=== PATIENT | male | born 1950 | race Caucasian/White ===

== ENCOUNTER → 2023-02-03 16:00 | Outpatient (REF) | payer MEDICARE, OTHER, SELFPAY | LOC: WOUND 16:00 | PROVIDERS: ATTENDING PHYSICIAN Surgery; REFERRING PHYSICIAN Family Medicine Sports Medicine | DX: L89.623 Pressure ulcer of left heel, stage 3 (principal); E10.65 Type 1 diabetes mellitus with hyperglycemia; I87.2 Venous insufficiency (chronic) (peripheral); I82.402 Acute embolism and thrombosis of unspecified deep veins of left lower extremity; N41.1 Chronic prostatitis; E10.51 Type 1 diabetes mellitus with diabetic peripheral angiopathy without gangrene | CPT/HCPCS: 11042 ==

== ENCOUNTER → 2023-06-21 14:39 | Outpatient (REF) | payer MEDICARE, OTHER, SELFPAY | LOC: WOUND 14:39 | PROVIDERS: ATTENDING PHYSICIAN Surgery Plastic and Reconstructive Surgery; REFERRING PHYSICIAN Family Medicine Sports Medicine | DX: L89.623 Pressure ulcer of left heel, stage 3 (principal); E10.65 Type 1 diabetes mellitus with hyperglycemia; I73.9 Peripheral vascular disease, unspecified; I87.2 Venous insufficiency (chronic) (peripheral); I82.402 Acute embolism and thrombosis of unspecified deep veins of left lower extremity; N41.1 Chronic prostatitis | CPT/HCPCS: 11042; 99213 ==

== ENCOUNTER → 2023-09-15 13:32 | Outpatient (REF) | payer MEDICARE, OTHER, SELFPAY | LOC: WOUND 13:32 | PROVIDERS: ATTENDING PHYSICIAN Surgery; FAMILY PHYSICIAN Family Medicine Sports Medicine | DX: I73.9 Peripheral vascular disease, unspecified (principal); L89.623 Pressure ulcer of left heel, stage 3; E10.65 Type 1 diabetes mellitus with hyperglycemia; I87.2 Venous insufficiency (chronic) (peripheral); I82.402 Acute embolism and thrombosis of unspecified deep veins of left lower extremity; N41.1 Chronic prostatitis | CPT/HCPCS: 99213 ==

== ENCOUNTER → 2024-01-03 14:45 | Outpatient (REF) | payer MEDICARE, OTHER, SELFPAY | LOC: HWRAD 14:45 | PROVIDERS: ATTENDING PHYSICIAN Family Medicine Sports Medicine | DX: R04.2 Hemoptysis (principal) | CPT/HCPCS: 71046 ==

== ENCOUNTER 2024-07-04 13:17 | Emergency (ER) | payer MEDICARE, OTHER, SELFPAY ==
[2024-07-04] VITALS (19 sets, daily range): BP systolic 120–170; BP diastolic 46–84; BMI 24.5
--- NOTE | 2024-07-04 13:22 | ED.GENMED ---
ED Provider Triage
<Giselle Barbour PA-C - Last Filed: 07/04/24 13:28>
-
Patient seen by provider in Triage?: Seen in Triage
Attestation: A medical screening examination has been initiated by a qualified medical provider. Based on the assessment performed at this time, it has been determined that an emergent medical condition may exist and the patient has been informed
that further medical evaluation and possible additional diagnostic testing may be needed.
HPI: 74yoM here for a low hemoglobin on outpatient labs yesterday. Hx of ESRD, not on dialysis. Receives EPO injections Q10 days. Follows with [facility]. Hemoglobin 5.9 yesterday. C/o generalized weakness. No hematochezia or melena.
GENERAL: Alert , in no apparent distress
EYE: No visual abnormalities.
NECK: Trachea midline
ENT: No visible abnormalities.
LUNGS: No acute respiratory distress
NEUROLOGICAL: Alert and oriented
SKIN: Skin intact. No visible changes.
MUSCULOSKELETAL: Moving extremities normally
PSYCH: Normal and appropriate interaction.
This is a medical evaluation conducted in person to initiate diagnostic evaluation and provide initial therapeutics. Please see further documentation by the treating clinician.
CBC, CMP, type and screen.
History of Present Illness
<Giselle Barbour PA-C - Last Filed: 07/04/24 13:28>
General
Chief Complaint: Abnormal Lab Value
Time Seen by Provider: 07/04/24 13:36
<Edgar Dickens PA-C - Last Filed: 07/04/24 18:53>
History of Present Illness
History of Present Illness:
74-year-old male with history of end-stage renal disease not yet on dialysis presents to the emergency department for evaluation of general fatigue. He states 'I feel lousy'. Had an outpatient lab panel ordered by his nurses medical assistants phlebotomists that noted a
hemoglobin of 5.9. Denies any black or bloody bowel movements. Hemoglobin was as high as 10.1 in March before being 7.8 in May. He was previously on Epogen due to his kidney disease. Denies chest pain or shortness of breath at this time.
Past History
<Giselle Barbour PA-C - Last Filed: 07/04/24 13:28>
Past History
ED Past Medical History: IDDM and Other (Brain lesions, WASHERY ENGINEER shunt, diabetes, UTI, )
ED Past Surgical History: Orthopedic (Tanner knee replacements) and Other (WASHERY ENGINEER shunt)
Social History
Tobacco: Non-smoker
Alcohol: None
Personal:
Living: with family
Review of Systems
<Edgar Dickens PA-C - Last Filed: 07/04/24 18:53>
Review of Systems
Allergies reviewed?: Yes
All Other Systems: ROS reviewed and negative except as documented in HPI and ROS
Phy Exam
<Edgar Dickens PA-C - Last Filed: 07/04/24 18:53>
Physical Exam
Physical Exam:
GEN: Well appearing, NAD, WDWN
HEENT: Oral mucosa moist, no scleral icterus
Cardiac: Regular rate and rhythm
Lung: No respiratory distress, no tachypnea, lungs clear to auscultation bilaterally
MSK: No gross deformity or injuries
Skin: Good color, no pallor or jaundice, no rashes
Neuro: AO x3, moves all extremities freely
Psych: Calm, cooperative
Course
<Giselle Barbour PA-C - Last Filed: 07/04/24 13:28>
Orders/Labs/Results
Orders:
Orders
07/04/24 13:32
Type+Screen Urgent
Complete Blood Count/With Diff Urgent
Comprehensive Metabolic Panel Urgent
07/04/24 14:24
Blood Bank Products [* Blood Bank Products] Urgent
Blood Bank Products: *Packed RBC Leuko(PRBC's)
Quantity: 2
Transfuse Today: Yes
Reason: Anemia
Patient will require pre-treatment for transfusion:: No
Furosemide [Lasix] 20 mg IV ONCE ONE
Abnormal Lab Results
07/04/24
13:32
RBC 2.14 L 10^6/uL
(4.70-6.10)
Hgb 6.3 L* g/dL
(13.0-18.0)
Hct 20.7 L* %
(39.0-52.0)
MCV 96.7 H fL
(80.0-94.0)
MCHC 30.4 L g/dL
(33.0-37.0)
RDW 14.8 H %
(11.5-14.5)
MPV 10.8 H fL
(7.4-10.4)
Absolute Lymphs (auto) 0.8 L 10^3/uL
(1.2-3.4)
Lymphocytes % 16.7 L %
(20.5-51.1)
BUN 112 H* mg/dl
(9-20)
Creatinine 5.9 H* mg/dL
(0.7-1.3)
Glucose 112 H mg/dl
(70-99)
AST 16 L U/L
(17-59)
Alkaline Phosphatase 140 H U/L
(38-126)
Total Protein 6.0 L g/dl
(6.3-8.2)
Crossmatch IS Only See Detail
07/04/24 13:32
07/04/24 13:32
Vital Signs
Initial and Last Documented VS:
Initial Vital Signs
Temp Pulse Resp BP Pulse Ox
97.6 F 79 16 123/49 93
07/04/24 13:19 07/04/24 13:19 07/04/24 13:19 07/04/24 13:19 07/04/24 13:19
Last Documented Vital Signs
Temp Pulse Resp BP Pulse Ox
98.2 F 65 15 139/57 98
07/04/24 18:07 07/04/24 18:10 07/04/24 18:10 07/04/24 18:10 07/04/24 18:10
<Edgar Dickens PA-C - Last Filed: 07/04/24 18:53>
Orders/Labs/Results
Orders:
Orders
07/04/24 13:32
Type+Screen Urgent
Complete Blood Count/With Diff Urgent
Comprehensive Metabolic Panel Urgent
07/04/24 14:24
Blood Bank Products [* Blood Bank Products] Urgent
Blood Bank Products: *Packed RBC Leuko(PRBC's)
Quantity: 2
Transfuse Today: Yes
Reason: Anemia
Patient will require pre-treatment for transfusion:: No
Furosemide [Lasix] 20 mg IV ONCE ONE
Abnormal Lab Results
07/04/24
13:32
RBC 2.14 L 10^6/uL
(4.70-6.10)
Hgb 6.3 L* g/dL
(13.0-18.0)
Hct 20.7 L* %
(39.0-52.0)
MCV 96.7 H fL
(80.0-94.0)
MCHC 30.4 L g/dL
(33.0-37.0)
RDW 14.8 H %
(11.5-14.5)
MPV 10.8 H fL
(7.4-10.4)
Absolute Lymphs (auto) 0.8 L 10^3/uL
(1.2-3.4)
Lymphocytes % 16.7 L %
(20.5-51.1)
BUN 112 H* mg/dl
(9-20)
Creatinine 5.9 H* mg/dL
(0.7-1.3)
Glucose 112 H mg/dl
(70-99)
AST 16 L U/L
(17-59)
Alkaline Phosphatase 140 H U/L
(38-126)
Total Protein 6.0 L g/dl
(6.3-8.2)
Crossmatch IS Only See Detail
07/04/24 13:32
07/04/24 13:32
Vital Signs
Initial and Last Documented VS:
Initial Vital Signs
Temp Pulse Resp BP Pulse Ox
97.6 F 79 16 123/49 93
07/04/24 13:19 07/04/24 13:19 07/04/24 13:19 07/04/24 13:19 07/04/24 13:19
Last Documented Vital Signs
Temp Pulse Resp BP Pulse Ox
98.2 F 65 15 139/57 98
07/04/24 18:07 07/04/24 18:10 07/04/24 18:10 07/04/24 18:10 07/04/24 18:10
<Edgar Dickens PA-C - Last Filed: 07/04/24 18:53>
MDM/Problems Addressed
MDM/Problems Addressed:
Patient's Hemoccult is negative and he appears clinically well. Likely anemia secondary to chronic renal failure. Transfused 2 units of blood in the emergency department tolerated well. Recommend outpatient CBC recheck later this week.
<Edgar Dickens PA-C - Last Filed: 07/04/24 18:53>
*Critical Care Note
Total Time (30-74mins, 75-104mins- exclusive of procedures): Not Applicable
ED Attending Note
<Giselle Barbour PA-C - Last Filed: 07/04/24 13:28>
-
Portions of this chart may have been created with voice recognition software.� Occasional wrong word or��sound alike� substitutions may have occurred due to the inherent limitations of voice recognition software.
Discharge Plan
Departure
Patient Disposition: Home (Routine Discharge)
Date of Disposition: 07/04/24
Time of Disposition: 18:53
Patient with high blood pressure during this ER visit?: No
Discharge Problem:
Anemia due to chronic kidney disease
Instructions: Anemia overview
Prescriptions:
No Action
trazodone 50 mg Tablet
50 mg PO HS
mycophenolate mofetil [CellCept] 500 mg Tablet
500 mg PO BID
tamsulosin 0.4 mg Capsule
0.4 mg PO BID
sodium bicarbonate 650 mg Tablet
1,950 mg PO BID
B complex with C 20-folic acid 1 mg Capsule
1 cap PO DAILY
ezetimibe 10 mg Tablet
10 mg PO DAILY
calcium acetate 667 mg Tablet
1,334 mg PO TID
Retacrit 4,000 unit/mL Solution
8,000 unit SC Q10D
atorvastatin 10 mg Tablet
10 mg PO HS Qty: 30 0RF
finasteride 5 mg Tablet
5 mg PO DAILY Qty: 30 0RF
ascorbic acid (vitamin C) [Vitamin C] 500 mg Tablet
500 mg PO DAILY
oxycodone 5 mg Tablet
5 mg PO BIDPRN PRN (Reason: severe pain)
cholecalciferol (vitamin D3) [Vitamin D3] 25 mcg (1,000 unit) Tablet
25 mcg PO DAILY
Patient Own Insulin Pump
0 unit SC .VIA NOVOLOG
Eliquis 5 mg tablet
2.5 mg PO BID
acetaminophen [Tylenol] 325 mg Tablet
650 mg PO Q6HPRN PRN (Reason: mild pain)
calcium polycarbophil [FiberCon] 625 mg Tablet
625 mg PO QPM
Referrals:
Jay Jaimes, [Family Provider] -
Activity Restrictions/Additional Instructions:
Have your blood counts repeated within the next 2-3 days
Return with any worsening symptoms
Interventions
Interventions:
*Risk Screen - Suicide Last Done: 07/04/24 13:22
*General Assessment Last Done: 07/04/24 14:20
*Neglect/Abuse Screening Last Done: 07/04/24 13:22
ED- Fall Risk Assessment Last Done: 07/04/24 14:20
*ED COVID-19 Vaccine History Last Done: 07/04/24 14:20
Discharge Date and Time
Print Language: LAO
[2024-07-04 14:00] LABS: % Basophils 0.2 % (0-2); % Eosinophils 2.9 % (0-6); % Immature Granulocytes 0.4 % (0-0.5); % Lymphocytes 16.7 % (20.5-51.1); % Monocytes 8.1 % (1.7-9.3); % Neutrophils 71.7 % (42.2-75.2); Absolute Eosinophils 0.1 10^3/uL (0-0.7); Absolute Lymphocytes 0.8 10^3/uL (1.2-3.4); Absolute Monocytes 0.4 10^3/uL (0.1-0.6); Absolute Neutrophils 3.5 10^3/uL (1.4-6.5); Hematocrit 20.7 % (39.0-52.0); Hemoglobin 6.3 g/dL (13.0-18.0); Mean Corp Hgb Conc. 30.4 g/dL (33.0-37.0); Mean Corpuscular Hgb 29.4 pg (27.0-31.0); Mean Corpuscular Volume 96.7 fL (80.0-94.0); Mean Platelet Volume 10.8 fL (7.4-10.4); Nucleated Red Blood Cells % 0 % (-); Platelet Count 180 10^3/uL (130-400); Red Blood Cell Count 2.14 10^6/uL (4.70-6.10); Red Cell Dist. Width 14.8 % (11.5-14.5); White Blood Cell Count 4.9 10^3/uL (4.8-10.8)
[2024-07-04 14:03] LABS: ALT (SGPT) 14 U/L (0-50); AST (SGOT) 16 U/L (17-59); Alkaline Phosphatase 140 U/L (38-126); Blood Urea Nitrogen 112 mg/dl (9-20); Calcium 9.1 mg/dl (8.4-10.2); Carbon Dioxide 22 mmol/L (22-30); Chloride 104 mmol/L (98-107); Glucose 112 mg/dl (70-99); Potassium 4.8 mmol/L (3.5-5.1); Sodium 138 mmol/L (135-145); Total Bilirubin 0.3 mg/dl (0.2-1.3); eGFR 9.39
[2024-07-04] MEDS: LASIX 20 MG IV (15:33)
== END 2024-07-04 21:17 | disposition home or self-care (01) ==
LOC: EMR 13:17
PROVIDERS: Physician Assistant; EMERGENCY PHYSICIAN Emergency Medicine; FAMILY PHYSICIAN Family Medicine Sports Medicine
DX: D63.1 Anemia in chronic kidney disease (principal); N18.6 End stage renal disease
CPT/HCPCS: 99285; 36430; 96374; 80053; 85025; 86850; 86900; 86901; 86920; P9016

== ENCOUNTER 2024-08-23 12:11 | Inpatient (IN) | payer MEDICARE, OTHER, SELFPAY ==
[2024-08-23] VITALS (19 sets, daily range): BP systolic 126–150; BP diastolic 54–80; BMI 25.6; BMI 25.0
--- NOTE | 2024-08-23 10:18 | ED.GENMED ---
History of Present Illness
General
Chief Complaint: Abnormal Lab Value
Source: patient
Exam Limitations: none
Time Seen by Provider: 08/23/24 09:48
History of Present Illness
History of Present Illness:
74-year-old male with anemia of chronic disease and has chronic kidney disease presents with fatigue. This is progressive over the past week or 2. He follows with nephrology at [facility]. He does not use dialysis. He is on Eliquis. He denies any
dark or tarry stools. He recently had a rectal exam was negative for blood. He had outpatient labs yesterday routine basis which showed hemoglobin of 5.5. He was here in June for anemia and was given 2 units of blood and discharged.
Past History
Past History
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
Social History
Tobacco: Non-smoker
Alcohol: None
Personal:
Living: with family
Phy Exam
Physical Exam
Physical Exam:
General: Pale appearing male no acute respiratory
HEENT: Normocephalic atraumatic
Heart: Regular rate and rhythm no murmurs
Lungs: Clear no wheeze
Extremities: No cyanosis
Skin is warm no rash
Course
Orders/Labs/Results
Orders:
Orders
08/23/24 10:11
Type+Screen Urgent
Complete Blood Count/With Diff Urgent
Comprehensive Metabolic Panel Urgent
08/23/24 10:33
0.9% Sodium Chloride 500 ml [Nss] 500 ml IV BOLUS
Pantoprazole [Protonix IV] 80 mg IV NOW STA
08/23/24 10:51
Blood Bank Products [* Blood Bank Products] Urgent
Blood Bank Products: *Packed RBC Leuko(PRBC's)
Quantity: 2
Transfuse Today: Yes
Reason: Anemia
Patient will require pre-treatment for transfusion:: No
Abnormal Lab Results
08/23/24
10:11
RBC 1.74 L 10^6/uL
(4.70-6.10)
Hgb 5.1 L* g/dL
(13.0-18.0)
Hct 17.1 L* %
(39.0-52.0)
MCV 98.3 H fL
(80.0-94.0)
MCHC 29.8 L g/dL
(33.0-37.0)
RDW 16.8 H %
(11.5-14.5)
MPV 11.9 H fL
(7.4-10.4)
Absolute Lymphs (auto) 0.8 L 10^3/uL
(1.2-3.4)
Lymphocytes % 14.6 L %
(20.5-51.1)
Chloride 109 H mmol/L
(98-107)
Carbon Dioxide 18 L mmol/L
(22-30)
BUN 107 H* mg/dl
(9-20)
Creatinine 6.1 H* mg/dL
(0.7-1.3)
Glucose 183 H mg/dl
(70-99)
Alkaline Phosphatase 166 H U/L
(38-126)
Total Protein 5.5 L g/dl
(6.3-8.2)
Crossmatch IS Only See Detail
08/23/24 10:11
08/23/24 10:11
Vital Signs
Initial and Last Documented VS:
Initial Vital Signs
Temp Pulse Resp BP Pulse Ox
98.5 F 77 16 138/56 98
08/23/24 09:44 08/23/24 09:44 08/23/24 09:44 08/23/24 09:44 08/23/24 09:44
Last Documented Vital Signs
Temp Pulse Resp BP Pulse Ox
98.5 F 77 16 138/56 98
08/23/24 09:44 08/23/24 09:44 08/23/24 09:44 08/23/24 09:44 08/23/24 09:44
MDM/Problems Addressed
Differential Diagnosis Includes:
Patient with history of anemia now feels tired but has stable vital signs. He had outpatient labs yesterday that reportedly showed a hemoglobin of 5.5. He is on Eliquis stool is brown but heme positive on rectal exam
Will check labs and plan on transfusing 2 units of blood
*Critical Care Note
Total Time (30-74mins, 75-104mins- exclusive of procedures): Not Applicable
Update Note
Update Note:
Hemoglobin 5.1. Vital signs remained stable. Consent obtained for 2 units of blood.
Discussed with admitting as well as GI. Protonix ordered
ED Attending Note
-
Portions of this chart may have been created with voice recognition software.� Occasional wrong word or��sound alike� substitutions may have occurred due to the inherent limitations of voice recognition software.
Discharge Plan
Departure
Patient Disposition: Admit
Date of Disposition: 08/23/24
Time of Disposition: 11:12
Presentation/result/management discussed w/ accepting MD/DO: Hospitalist
Discharge Problem:
Acute on chronic anemia, Acute GI bleeding
Prescriptions:
No Action
mycophenolate mofetil [CellCept] 500 mg Tablet
500 mg PO BID
tamsulosin 0.4 mg Capsule
0.4 mg PO BID
sodium bicarbonate 650 mg Tablet
1,950 mg PO BID
B complex with C 20-folic acid 1 mg Capsule
1 cap PO DAILY
ezetimibe 10 mg Tablet
10 mg PO DAILY
calcium acetate 667 mg Tablet
1,334 mg PO TID
atorvastatin 10 mg Tablet
10 mg PO HS Qty: 30 0RF
finasteride 5 mg Tablet
5 mg PO DAILY Qty: 30 0RF
ascorbic acid (vitamin C) [Vitamin C] 500 mg Tablet
500 mg PO DAILY
oxycodone 5 mg Tablet
5 mg PO DAILY
cholecalciferol (vitamin D3) [Vitamin D3] 25 mcg (1,000 unit) Tablet
25 mcg PO DAILY
Patient Own Insulin Pump
0 unit SC .VIA NOVOLOG
calcium polycarbophil [FiberCon] 625 mg Tablet
625 mg PO QPM
acetaminophen 500 mg Tablet
1,000 mg PO DAILYPRN PRN (Reason: mild pain)
apixaban 2.5 mg Tablet
2.5 mg PO BID
ciprofloxacin HCl 500 mg Tablet
500 mg PO BID
Patient Comments:
started 08/20/24. take for 10 days
Visbiome 112.5 billion cell Capsule
1 cap PO HS
Referrals:
Jay Jaimes DO [Family Provider] -
Interventions
Interventions:
*Risk Screen - Suicide Last Done: 08/23/24 09:44
*General Assessment Last Done: 08/23/24 10:08
*Neglect/Abuse Screening Last Done: 08/23/24 09:44
ED- Fall Risk Assessment Last Done: 08/23/24 10:10
*ED COVID-19 Vaccine History Last Done: 08/23/24 10:08
Discharge Date and Time
Print Language: SLOVAK
[2024-08-23 10:25] LABS: % Basophils 0.2 % (0-2); % Eosinophils 4.3 % (0-6); % Immature Granulocytes 0.4 % (0-0.5); % Lymphocytes 14.6 % (20.5-51.1); % Neutrophils 73.5 % (42.2-75.2); Absolute Eosinophils 0.2 10^3/uL (0-0.7); Absolute Lymphocytes 0.8 10^3/uL (1.2-3.4); Absolute Monocytes 0.4 10^3/uL (0.1-0.6); Absolute Neutrophils 3.8 10^3/uL (1.4-6.5); Hematocrit 17.1 % (39.0-52.0); Hemoglobin 5.1 g/dL (13.0-18.0); Mean Corp Hgb Conc. 29.8 g/dL (33.0-37.0); Mean Corpuscular Hgb 29.3 pg (27.0-31.0); Mean Corpuscular Volume 98.3 fL (80.0-94.0); Mean Platelet Volume 11.9 fL (7.4-10.4); Nucleated Red Blood Cells % 0 % (-); Platelet Count 157 10^3/uL (130-400); Red Blood Cell Count 1.74 10^6/uL (4.70-6.10); Red Cell Dist. Width 16.8 % (11.5-14.5); White Blood Cell Count 5.2 10^3/uL (4.8-10.8)
[2024-08-23 10:42] LABS: ALT (SGPT) 19 U/L (0-50); AST (SGOT) 17 U/L (17-59); Albumin 3.5 g/dl (3.5-5.0); Alkaline Phosphatase 166 U/L (38-126); Blood Urea Nitrogen 107 mg/dl (9-20); Calcium 8.8 mg/dl (8.4-10.2); Carbon Dioxide 18 mmol/L (22-30); Chloride 109 mmol/L (98-107); Estimated Creatinine Clearance 12 ml/min; Glucose 183 mg/dl (70-99); Potassium 4.7 mmol/L (3.5-5.1); Sodium 139 mmol/L (135-145); Total Bilirubin 0.4 mg/dl (0.2-1.3); Total Protein 5.5 g/dl (6.3-8.2); eGFR 9.02
--- NOTE | 2024-08-23 11:11 | CON.GI ---
Addendum entered and electronically signed by Thang Jacinto MD 08/23/24 14:12:
Patient seen and examined, agree with nurse practitioner note. Patient is a 74-year-old male with complex medical history as noted who presents with anemia. His hemoglobin was 5.9 down from 7 in June. He has had history of chronic anemia,
with iron studies not consistent with iron deficiency. He had negative EGD and colonoscopy at the emergency [place] around 2 years ago by report. He was found to be heme positive though brown stools and has had not had any GI symptoms. He
did have norovirus a couple weeks ago, the did not have any gross bleeding and now denies any abdominal pain, nausea, vomiting, fever, chills, melena or hematochezia. He has chronic known anemia of chronic disease on frequent Epogen. On exam he
has no abdominal tenderness.
1. Anemia: Not from GI blood loss, without iron deficiency or gross bleeding. His heme positive stool is very nonspecific and likely clinically nonsignificant without again gross bleeding, without iron deficiency, and macrocytosis. The majority
of his anemia is likely anemia of chronic disease, though other marrow disorder such as myelodysplastic syndrome is not excluded. At this point would hold on any GI evaluation unless signs of gross bleeding. Will advance diet, he is for
transfusion will defer to internal medicine, consider hematology consult at some point.
We will sign off for now, please call back with any further questions.
Original Note:
Consultation
-
Date/Time Consultation Requested: 08/23/24 1100
Date/Time Consultation Performed: 08/23/24 1115
Requesting Provider: Benedicto Lance PA-C
Performing Provider: RELL Major, Keyshawn Jacinto MD
Reason for Consultation: anemia
Medical History
Chief Complaint / HPI
Chief Complaint: anemia
History of Present Illness:
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
ER. In review of labs from [facility] pt with hbg down to 5.9 then 7 range since June with iron studies not consistent with iron deficiency. Pt admits to progressive shortness of breath but denies odynophagia, dysphagia, GERD, nausea, vomiting,
abdominal pain, diarrhea, constipation, blood or black in stools. Pt last EGD/colon at [facility] about 2 years ago. Family did not recall any major finding. No NSAID use. Pt is on chronic Epogen.
Past Medical History
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
Past Surgical History: Orthopedic (TKR ) and Other (SECRETARY ADMINISTRATIVE ASSISTANT shunt )
Social History
Tobacco: Non-Smoker
Alcohol: None
Drug: None
Personal:
Living: With Family
Employment: Retired
Family History
Family History: Other (father with colon CA in 80's)
Allergies / Home Medications
Allergy/AdvReac Type Severity Reaction Status Date / Time
No Known Allergies Allergy Verified 08/23/24 09:46
�Medication �Instructions �Recorded
calcium acetate 667 mg tablet 1,334 mg PO TID Kidney Disease 12/12/22
ezetimibe 10 mg tablet 10 mg PO DAILY High Cholesterol 12/12/22
mycophenolate mofetil 500 mg 500 mg PO BID Neurologic Sarcoid 12/12/22
tablet (CellCept) Granulomatosis
sodium bicarbonate 650 mg tablet 1,950 mg PO BID Electrolyte 12/12/22
Repletion
tamsulosin 0.4 mg capsule 0.4 mg PO BID Urinary Issue 12/12/22
vitamin B complex and vitamin C 1 cap PO DAILY Supplement 12/12/22
no.20-folic acid 1 mg capsule
atorvastatin 10 mg tablet 10 mg PO HS #30 tabs 12/15/22
finasteride 5 mg tablet 5 mg PO DAILY #30 tabs 12/15/22
Patient Own Insulin Pump 0 unit SC .VIA [employer] 07/04/24
ascorbic acid (vitamin C) 500 mg 500 mg PO DAILY 07/04/24
tablet (Vitamin C)
calcium polycarbophil 625 mg 625 mg PO QPM 07/04/24
tablet (FiberCon)
cholecalciferol (vitamin D3) 25 25 mcg PO DAILY 07/04/24
mcg (1,000 unit) tablet (Vitamin
D3)
oxycodone 5 mg tablet 5 mg PO DAILY 07/04/24
Lactobac no.2-Bifidobac no.1-S. 1 cap PO HS 08/23/24
thermo 112.5 billion cell capsule
(Visbiome)
acetaminophen 500 mg tablet 1,000 mg PO DAILYPRN PRN mild pain 08/23/24
apixaban 2.5 mg tablet 2.5 mg PO BID 08/23/24
ciprofloxacin HCl 500 mg tablet 500 mg PO BID 08/23/24
Review of Systems
-
History Source: Patient and Family
Constitutional: Reports No Symptoms
EENT: Reports No Symptoms
Respiratory: Reports Trouble Breathing
Cardiac: Reports No Symptoms
Abdomen/GI: Reports No Symptoms
: Reports No Symptoms
Musculoskeletal: Reports No Symptoms
Skin: Reports No Symptoms
Neurological: Reports No Symptoms
Endocrine: Reports No Symptoms
Hematologic/Lymphatic: Reports Bleeding
Vital Signs
Temp Pulse Resp BP Pulse Ox
98.5 F 77 16 138/56 98
08/23/24 09:44 08/23/24 09:44 08/23/24 09:44 08/23/24 09:44 08/23/24 09:44
Physical Exam
Exam
General: Well Developed, Well Nourished and No Apparent Distress
HEENT: Normocephalic and Anicteric
Respiratory: Clear
Cardiac: Regular Rhythm
GI: Soft, Non Tender and Non Distended
Rectal: Other (heme + brown in ER)
Musculoskeletal: No Clubbing, No Cyanosis and Edema
Skin: Warm and Dry
Neuro: Awake, Alert and AO x 3
Psych: Calm
Results
WBC 5.2 10^3/uL (4.8-10.8) 08/23/24 10:11
Hgb 5.1 g/dL (13.0-18.0) L* 08/23/24 10:11
Hct 17.1 % (39.0-52.0) L* 08/23/24 10:11
MCV 98.3 fL (80.0-94.0) H 08/23/24 10:11
Plt Count 157 10^3/uL (130-400) 08/23/24 10:11
Absolute Neuts (auto) 3.8 10^3/uL (1.4-6.5) 08/23/24 10:11
Sodium 139 mmol/L (135-145) 08/23/24 10:11
Potassium 4.7 mmol/L (3.5-5.1) 08/23/24 10:11
Chloride 109 mmol/L (98-107) H 08/23/24 10:11
Carbon Dioxide 18 mmol/L (22-30) L 08/23/24 10:11
BUN 107 mg/dl (9-20) H* 08/23/24 10:11
Creatinine 6.1 mg/dL (0.7-1.3) H* 08/23/24 10:11
Calcium 8.8 mg/dl (8.4-10.2) 08/23/24 10:11
Total Bilirubin 0.4 mg/dl (0.2-1.3) 08/23/24 10:11
AST 17 U/L (17-59) 08/23/24 10:11
ALT 19 U/L (0-50) 08/23/24 10:11
Alkaline Phosphatase 166 U/L (38-126) H 08/23/24 10:11
Diagnostic Image Results:
Prior GI Procedures:
EGD: last at [facility] about 2 years ago
Colonoscopy: last at [facility] about 2 years ago
Assessment / Plan
-
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
In review of labs from [facility] pt with hbg down to 5.9 then 7 range since June with iron studies not consistent with iron deficiency. Pt admits to progressive shortness of breath but denies odynophagia, dysphagia, GERD, nausea, vomiting, abdominal
pain, diarrhea, constipation, blood or black in stools. Pt last EGD/colon at [facility] about 2 years ago. Family did not recall any major finding. No NSAID use. Pt is on chronic Epogen.
-macrocytic anemia with prior iron studies not c/w iron deficiency
-chronic anemia with hbg down to 5.9 in June
-heme + brown stool in ER
-CKD with worsening dysfunction due for eventual start of HD
-DVT on Eliquis prior to admission
-hx brain lesion on cellcept
-recent UTI on abx
other med problems:
-IDDM
-SECRETARY ADMINISTRATIVE ASSISTANT shunt
-TKR
PLAN:
etiology of anemia likely related to advancing kidney disease, GI bleeding with brown heme + stool on exam vs other
no recent bleeding episodes and hbg down to 5.9 in June
agree with transfusion
trend hbg
obtain repeat iron studies, B12, folate
Eliquis hold last dose 08/22
discussed EGD/colon with family vs continued observation as no signs of aggressive GI bleeding and likely underlying kidney issues leading to anemia
obtain prior EGD/colon from [facility] 2 years ago
ok for clear diet for now until review with dr. Jacinto for definitive plan
OP follow up with [facility]-- did review with nephrology who is scheduling follow up and also recommending OP hematology -
-
-
Thank you for consultation and allowing me to participate in the patient's care. Please call the telephone solicitor GI physician during the after hours with any questions or concerns.
[2024-08-23] MEDS: PROTONIX IV 80 MG IV (11:12)
[2024-08-23] MEDS: NSS 500 IV (11:13)
--- NOTE | 2024-08-23 12:04 | HPS.HSE ---
Family Physician
-
Family Physician: Jay Jaimes
Chief Complaint
-
weakness
History of Present Illness
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
Patient reported feeling fatigued more then usual over past 3 weeks. FOBT positive as per ED message. No overt blood in stool and no black stool seen as per patient. Ordered 2 units of PRBC by ED
Medical History
Past Medical History
Past Medical History: Reports Other
Additional Past Medical History:
See HPI
Past Surgical History: Reports Other
Additional Past Surgical History:
See HPI
Social History
Tobacco: Non-smoker
Alcohol: None
Personal:
Family History
Family History: Not pertinent
Allergies / Home Medications
Allergies reflects when Allergies were last updated in [facility].
Home Medications with original date entered in [facility]
Allergy/Medication List:
Allergies
Allergy/AdvReac Type Severity Reaction Status Date / Time
No Known Allergies Allergy Verified 08/23/24 09:46
Home Medications
calcium acetate 667 mg tablet 1,334 mg PO TID Kidney Disease 12/12/22
ezetimibe 10 mg tablet 10 mg PO DAILY High Cholesterol 12/12/22
mycophenolate mofetil 500 mg tablet (CellCept) 500 mg PO BID Neurologic Sarcoid Granulomatosis 12/12/22
sodium bicarbonate 650 mg tablet 1,950 mg PO BID Electrolyte Repletion 12/12/22
tamsulosin 0.4 mg capsule 0.4 mg PO BID Urinary Issue 12/12/22
vitamin B complex and vitamin C no.20-folic acid 1 mg capsule 1 cap PO DAILY Supplement 12/12/22
atorvastatin 10 mg tablet 10 mg PO HS #30 tabs 12/15/22
finasteride 5 mg tablet 5 mg PO DAILY #30 tabs 12/15/22
Patient Own Insulin Pump 0 unit SC .VIA NOVOLOG 07/04/24
ascorbic acid (vitamin C) 500 mg tablet (Vitamin C) 500 mg PO DAILY 07/04/24
calcium polycarbophil 625 mg tablet (FiberCon) 625 mg PO QPM 07/04/24
cholecalciferol (vitamin D3) 25 mcg (1,000 unit) tablet (Vitamin D3) 25 mcg PO DAILY 07/04/24
oxycodone 5 mg tablet 5 mg PO DAILY 07/04/24
Lactobac no.2-Bifidobac no.1-S. thermo 112.5 billion cell capsule (Visbiome) 1 cap PO HS 08/23/24
acetaminophen 500 mg tablet 1,000 mg PO DAILYPRN PRN mild pain 08/23/24
apixaban 2.5 mg tablet 2.5 mg PO BID 08/23/24
ciprofloxacin HCl 500 mg tablet 500 mg PO BID 08/23/24
Review of Systems
-
History Source: Patient
A 12 point ROS was completed and negative except as noted: Yes
Constitutional: Reports Fatigue
Physical Exam
Vital Signs
Vital Signs
Temp Pulse Resp BP Pulse Ox
97.5 F 70 20 139/74 99
08/23/24 11:43 08/23/24 11:43 08/23/24 11:43 08/23/24 11:43 08/23/24 11:43
Physical Exam
General: Well Developed, Well Nourished and No Apparent Distress
HEENT: NormoCephalic, Anicteric and Moist mucous membranes
Respiratory: Clear; No Wheezes, Rales or Rhonchi
Cardiac: S1/S2 and Regular Rhythm; No Murmur
GI: Soft, Non Tender and Non Distended
Musculoskeletal: No Clubbing, No Cyanosis and No Edema
Skin: Warm and Other (pale); No Dry or Jaundice
Neuro: Awake, Alert, Oriented and AO x 3
Psych: Calm
Laboratory Results
-
08/23/24 10:11
08/23/24 10:11
Laboratory Results
Total Bilirubin 0.4 mg/dl (0.2-1.3) 08/23/24 10:11
AST 17 U/L (17-59) 08/23/24 10:11
ALT 19 U/L (0-50) 08/23/24 10:11
Alkaline Phosphatase 166 U/L (38-126) H 08/23/24 10:11
Data Reviewed
-
Lab Data: Labs Reviewed by me
Impression/Plan
-
A/P:
#Acute symptomatic anemia, multifactorial on anemia of chronic disease
#CKD stage 5 with metabolic acidosis
2/2 Cellcept, advanced CKD, GIB
Serial Hgb and transfuse to keep Hgb >7
PPI drip
GI consult
CLD
Hold antiplatelets and anticoagulation
Anemia workup
Nephrology consult
Start Bicarb oral
#DM type 2 with nephropathy
Patient owns insulin pump - cont
Insulin SS, Accuchekcs, DM diet
#Hx of DVT
hold Eliquis
LE US
#Neurosarcoidosis
#Chronic prostatitis
#BPH
#HLD
COnt home meds
DVT ppx SCDs
DNR/DNI - agreed with patient and bedside
I have spent at least 79min reviewing chart, test results, communication with consultants, family and direct patient care
[2024-08-23 12:15] LABS: Iron 193 ug/dl (49-181)
[2024-08-23 12:26] LABS: Percent Saturation 95 % (20-50); Total Iron Binding Capacity 203 ug/dl (261-462)
[2024-08-23 13:21] LABS: Folate > 20.0 ng/ml (2.76-20); Vitamin B12 828 pg/ml (239-931)
[2024-08-23] MEDS: PROTONIX 100 IV (13:21)
--- NOTE | 2024-08-23 13:43 | W.CON.NEPH ---
Consultation
-
Date/Time Consultation Requested: 08/23/24 1120
Date/Time Consultation Performed: 08/23/24 1400
Requesting Provider: Xiang Silverman
Performing Provider: Norma Workman
Reason for Consultation: CKD5
Medical History
-
Chief Complaint: Weakness
History of Present Illness:
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
For 64 years, has microvascular complications neuropathy, nephropathy , HLD, BPH on Flomax, chronic prostatitis, Hx of DVT UE and LE on Eliquis, recurrent severe anemia on high dose outpatient Epo came after outpatient labs showed severe anemia,
found Hgb 5.1. Patient reported feeling fatigued more then usual over past 3 weeks. FOBT positive as per ED message. No overt blood in stool and no black stool seen as per patient. he is on ciprofloxacin for recent UTI. he wears external catheter
for urinary frequency, self catheter once a day with known history of retention as result of diabetes.
Creatinine noted to be at 6.1, bicarbonate of 18, BUN of 107-nephrology consulted to review.
He offers no chest pain or nausea or vomiting. No lower extremity edema. he is recommended to see hematology by his workforce consultant for persistent anemia despite on LEN. he also plan to start dialysis once access is established, scheduled to see
vascular and of the month for a graft. He cannot be on PD due to PATIENT SERVICES SPECIALIST shunt.
Past Medical History
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
PATIENT SERVICES SPECIALIST shunt,
CKD stage 5 last cr 5.9,
chronic metabolic acidosis
hyperphosphatemia o
IDDM
HLD,
BPH
chronic prostatitis
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
anemia
Failed left upper extremity fistula
Past Surgical History: Other (VPshunt and TKR)
Social History
Tobacco: Non-Smoker
Alcohol: None
Drug: None
Personal:
Living: With Family
Employment: Retired
Family History
father with colon cancer in 80s
Family History: Not Pertinent
Allergies / Home Medications
Allergy/AdvReac Type Severity Reaction Status Date / Time
No Known Allergies Allergy Verified 08/23/24 09:46
�Medication �Instructions �Recorded �Confirmed �Type
calcium acetate 667 mg tablet 1,334 mg PO TID Kidney Disease 12/12/22 08/23/24 History
ezetimibe 10 mg tablet 10 mg PO DAILY High Cholesterol 12/12/22 08/23/24 History
mycophenolate mofetil 500 mg 500 mg PO BID Neurologic Sarcoid 12/12/22 08/23/24 History
tablet (CellCept) Granulomatosis
sodium bicarbonate 650 mg tablet 1,950 mg PO BID Electrolyte 12/12/22 08/23/24 History
Repletion
tamsulosin 0.4 mg capsule 0.4 mg PO BID Urinary Issue 12/12/22 08/23/24 History
vitamin B complex and vitamin C 1 cap PO DAILY Supplement 12/12/22 08/23/24 History
no.20-folic acid 1 mg capsule
atorvastatin 10 mg tablet 10 mg PO HS #30 tabs 12/15/22 08/23/24 Rx
finasteride 5 mg tablet 5 mg PO DAILY #30 tabs 12/15/22 08/23/24 Rx
Patient Own Insulin Pump 0 unit SC .VIA NOVOLOG 07/04/24 08/23/24 History
ascorbic acid (vitamin C) 500 mg 500 mg PO DAILY 07/04/24 08/23/24 History
tablet (Vitamin C)
calcium polycarbophil 625 mg 625 mg PO QPM 07/04/24 08/23/24 History
tablet (FiberCon)
cholecalciferol (vitamin D3) 25 25 mcg PO DAILY 07/04/24 08/23/24 History
mcg (1,000 unit) tablet (Vitamin
D3)
oxycodone 5 mg tablet 5 mg PO DAILY 07/04/24 08/23/24 History
Lactobac no.2-Bifidobac no.1-S. 1 cap PO HS 08/23/24 08/23/24 History
thermo 112.5 billion cell capsule
(Visbiome)
acetaminophen 500 mg tablet 1,000 mg PO DAILYPRN PRN mild pain 08/23/24 08/23/24 History
apixaban 2.5 mg tablet 2.5 mg PO BID 08/23/24 08/23/24 History
ciprofloxacin HCl 500 mg tablet 500 mg PO BID 08/23/24 08/23/24 History
Review of Systems
-
All complete 12 point ROS inquired and found negative other than stated in HPI
Physical Exam
Vital Signs
Vital Signs
Temp Pulse Resp BP Pulse Ox
97.7 F 64 18 144/71 99
08/23/24 13:24 08/23/24 13:24 08/23/24 13:24 08/23/24 13:24 08/23/24 13:24
Lab Results
WBC 5.2 10^3/uL (4.8-10.8) 08/23/24 10:11
RBC 1.74 10^6/uL (4.70-6.10) L 08/23/24 10:11
Hgb 5.1 g/dL (13.0-18.0) L* 08/23/24 10:11
Hct 17.1 % (39.0-52.0) L* 08/23/24 10:11
Plt Count 157 10^3/uL (130-400) 08/23/24 10:11
Sodium 139 mmol/L (135-145) 08/23/24 10:11
Potassium 4.7 mmol/L (3.5-5.1) 08/23/24 10:11
Chloride 109 mmol/L (98-107) H 08/23/24 10:11
Carbon Dioxide 18 mmol/L (22-30) L 08/23/24 10:11
BUN 107 mg/dl (9-20) H* 08/23/24 10:11
Creatinine 6.1 mg/dL (0.7-1.3) H* 08/23/24 10:11
eGFR 9.02 08/23/24 10:11
Glucose 183 mg/dl (70-99) H 08/23/24 10:11
Calcium 8.8 mg/dl (8.4-10.2) 08/23/24 10:11
Albumin 3.5 g/dl (3.5-5.0) 08/23/24 10:11
Physical Exam
General: Awake, Alert, Oriented, AOx3, No Distress and Nontoxic
HEENT: EOMI, Anicteric, Conjunctivae Clear, Facial Symmetry and No JVD
Respiratory: Clear, Normal Excursion and Nonlabored Respirations
Cardiac: S1/S2 and Regular Rate/Rhythm
Breast: Deferred by me
Abdomen: Soft, Nontender and Nondistended
Musculoskeletal: No Cyanosis and No Edema
Skin: No Rash
Neuro: Nonfocal/Grossly Intact
Psych: Mood/afflect pleasant, Insight/judgement good and Appropriate
Data Reviewed
-
Labs: Labs Reviewed by me, Discussed with Patient and Discussed with Family
Assessment/Plan
-
IMP:
Acute symptomatic anemia
anemia of chronic disease
CKD stage 5 last cr 5.9, In process of getting dialysis access-nephrology at [place]
chronic metabolic acidosis
hyperphosphatemia
IDDM 1 with nephropathy
HLD,
BPH
chronic prostatitis
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
PATIENT SERVICES SPECIALIST shunt,
Plan:
A/w weakness, symp anemia
CKD-stage5, no emergent need of HD
likely will need soon, which patient is already awake and planning to have graft placement in the near future
He is interested in getting nocturnal dialysis, wants to set up at [place] [facility]
He cannot get PD with PATIENT SERVICES SPECIALIST shunt
monitor UOP , Check PVR with known history of mild retention
cont high dose of po bicarb therapy
follow h/h post transfusion, GI follows
He was also recommended to see hematology as outpatient by his workforce consultant
BP stable
avoid nephrotoxins
discussed in detail with the patient and at bedside
Discussed with the nursing
[2024-08-23 14:16] LABS: COVID-19 Antigen Negative (Negative)
--- NOTE | 2024-08-23 15:35 | W.PN.UPDATE ---
Update Note
Progress Note Update
GI signed off - no endoscopy planed, not concerned for overt bleeding - will cont eliquis
Hematology cosnult as per GI
[2024-08-23] MEDS: HEPARIN 25000 UNITS/250 ML IV ×2 (17:52→18:36)
[2024-08-23 18:15] LABS: APTT 34.2 Sec (23.4-35.0)
[2024-08-23] MEDS: CELLCEPT 500 MG PO (20:16)
[2024-08-23] MEDS: SODIUM BICARBONATE 1950 MG PO (20:18)
[2024-08-23] MEDS: FLOMAX 0.4 MG PO (20:19)
[2024-08-23] MEDS: VISBIOME 1 CAP PO (20:19)
[2024-08-23] MEDS: LIPITOR 10 MG PO (20:21)
[2024-08-23 20:24] LABS: Hematocrit 22.4 % (39.0-52.0); Hemoglobin 6.9 g/dL (13.0-18.0); Reticulocyte Count 1.4 % (0.4-2.8)
[2024-08-23 20:25] LABS: Iron 186 ug/dl (49-181); LDH 132 U/L (120-246)
[2024-08-23 20:35] LABS: Percent Saturation 94 % (20-50); Total Iron Binding Capacity 197 ug/dl (261-462)
[2024-08-23 21:36] LABS: Glucose - Point of Care 129 mg/dl (70-99)
[2024-08-23 21:44] LABS: Folate > 20.0 ng/ml (2.76-20); Vitamin B12 799 pg/ml (239-931)
[2024-08-23] MEDS: PT'S OWN INSULIN PUMP - NovoLOG 2 UNIT SC (22:09)
[2024-08-23] MEDS: PHOSLO 1334 MG PO (22:11)
[2024-08-24 01:14] LABS: APTT 102.9 Sec (23.4-35.0)
[2024-08-24 01:42] VITALS: BP 134/55
[2024-08-24] MEDS: ROXICODONE 5 MG PO (04:34)
[2024-08-24 05:30] LABS: Hematocrit 22.8 % (39.0-52.0); Hemoglobin 7.5 g/dL (13.0-18.0)
[2024-08-24 05:47] LABS: APTT 138.3 Sec (23.4-35.0)
[2024-08-24 06:03] LABS: Blood Urea Nitrogen 98 mg/dl (9-20); Calcium 8.8 mg/dl (8.4-10.2); Carbon Dioxide 15 mmol/L (22-30); Chloride 113 mmol/L (98-107); Estimated Creatinine Clearance 13 ml/min; Glucose 149 mg/dl (70-99); Magnesium 1.7 mg/dl (1.6-2.3); Potassium 4.7 mmol/L (3.5-5.1); Sodium 139 mmol/L (135-145); eGFR 9.78
[2024-08-24 07:00] VITALS: BP 134/67
[2024-08-24] MEDS: PT'S OWN INSULIN PUMP - NovoLOG 1 UNIT SC (08:53)
[2024-08-24 08:58] LABS: Glucose - Point of Care 181 mg/dl (70-99)
[2024-08-24] MEDS: CELLCEPT 500 MG PO (08:58)
[2024-08-24] MEDS: CIPRO 500 MG PO (08:59)
[2024-08-24] MEDS: PROTONIX 40 MG PO (08:59)
[2024-08-24] MEDS: SODIUM BICARBONATE 1950 MG PO (08:59)
[2024-08-24] MEDS: VITAMIN D3 (cholecalciferol) 25 MCG PO (08:59)
[2024-08-24] MEDS: FLOMAX 0.4 MG PO (08:59)
[2024-08-24] MEDS: PROSCAR 5 MG PO (09:00)
[2024-08-24] MEDS: ZETIA 10 MG PO (09:00)
--- NOTE | 2024-08-24 10:24 | W.PN.HOSP.TC ---
Today's Communication/Plan
-
repeat H&H at noon - if stable -will d/c
Assessment / Plan
Assessment / Plan
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
Hgb 5.1. Patient reported feeling fatigued more then usual over past 3 weeks. FOBT positive as per ED message. No overt blood in stool and no black stool seen as per patient. Ordered 2 units of PRBC by ED, feeling better afterwards. As per GI - no
indication for EGD/colonoscopy as anemia most likely multifacorial. Established hematology appt in [facility] on 08/27/24. US LE showed chronic vs recent DVT. Since vendor does not recommend dose reduction for treatment of VTE - start ELiquis 10mg BID for
7 days then 5mg BID and patient was recommended to have that discussed with the thread weaver. No more over bleeding and H&H stable.
A/P:
#Acute symptomatic anemia, multifactorial on anemia of chronic disease
#CKD stage 5 with metabolic acidosis
2/2 Cellcept, advanced CKD, GIB
Serial Hgb and transfuse to keep Hgb >7
GI signed off - no endoscopy planed, not concerned for overt bleeding - will cont eliquis
Hematology cosnult as per GI - already established appt in [facility] for 08/27/24
Anemia workup
Nephrology consult
Start Bicarb oral
#DM type 2 with nephropathy
Patient owns insulin pump - cont
Insulin SS, Accuchekcs, DM diet
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
Patient was on reduced dose ELiquis, will not consider it a failure
Increase to vendor-recommended dose
#Neurosarcoidosis
#Chronic prostatitis
#BPH
#HLD
COnt home meds
DVT ppx SCDs
DNR/DNI - agreed with patient and bedside
I have spent at least 39min reviewing chart, test results, communication with consultants, family and direct patient care
Anticipated Discharge: Within 24 hours
Subjective/Interval History
-
Date of Service: August 24, 2024
Objective Data
-
Labs:
Laboratory Results
08/24/24 08/24/24 08/24/24
00:48 05:22 12:00
Hgb 7.5 L Pending
Hct 22.8 L Pending
APTT 102.9 H 138.3 H
Sodium 139
Potassium 4.7
Chloride 113 H
Carbon Dioxide 15 L
BUN 98 H
Creatinine 5.7 H*
Glucose 149 H
Calcium 8.8
08/24/24 08/24/24
13:00 20:00
Hgb Pending
Hct Pending
APTT Pending
Sodium
Potassium
Chloride
Carbon Dioxide
BUN
Creatinine
Glucose
Calcium
Vital Signs:
Vital Signs
Temp Pulse Resp BP Pulse Ox
98.0 F 79 18 134/67 97
08/24/24 07:00 08/24/24 07:00 08/24/24 07:00 08/24/24 07:00 08/24/24 07:00
I&O
08/23/24 08/24/24 08/25/24
06:59 06:59 06:59
Intake Total 1710 / 1710
Output Total 2700 / 2700
Balance -990 / -990
Review of Systems
-
History Source: Patient
All other systems: Reviewed and negative
Physical Exam
-
General: No Apparent Distress
HEENT: Normocephalic
Cardiac: Regular Rhythm
GI: Soft, Nontender and Nondistended
Skin: Warm
Neuro: Awake, Alert, Oriented and AO x 3
Psych: Calm
--- NOTE | 2024-08-24 10:54 | W.PN.NEPH.PH ---
Today's Communication / Plan
-
observe
maintain sodium bicarbonate
Cleared for discharge from nephrology standpoint
Assessment/Plan
-
IMP:
Acute symptomatic anemia
anemia of chronic disease
CKD stage 5 last cr 5.9, In process of getting dialysis access-nephrology at [place]
chronic metabolic acidosis
hyperphosphatemia
IDDM 1 with nephropathy
HLD,
BPH
chronic prostatitis
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
HYPERION DEVELOPER shunt,
Plan:
A/w weakness, symp anemia : hemoglobin at 7.5
Creatinine at 5.7 BUN 98 metabolic acidosis persist
CKD-stage5, no emergent need of HD
likely will need soon, which patient is already awake and planning to have graft placement in the near future
He is interested in getting nocturnal dialysis, wants to set up at [facility]
He cannot get PD with HYPERION DEVELOPER shunt
monitor UOP , Check PVR with known history of mild retention
continue high dose of po bicarb therapy, not responding as well with CO2 of 15
follow h/h post transfusion, GI follows
He was also recommended to see hematology as outpatient by his oven tender
BP stable off any antihypertensives
avoid nephrotoxins
Maintain phosphate binders for hyperphosphatemia with meals
-
-
Date of Service: August 24, 2024
CC / HPI / ROS
-
Chief Complaint:
CKD stage V
History of Present Illness:
Anemia persist hemoglobin 7.5
Hemodynamically stable
Creatinine at 5.7 BUN 98
Review of Systems:
Grossly nonoliguric
No chest pain or shortness of
Labs
-
Labs:
WBC 5.2 10^3/uL (4.8-10.8) 08/23/24 10:11
RBC 1.74 10^6/uL (4.70-6.10) L 08/23/24 10:11
Plt Count 157 10^3/uL (130-400) 08/23/24 10:11
Sodium 139 mmol/L (135-145) 08/24/24 05:22
Potassium 4.7 mmol/L (3.5-5.1) 08/24/24 05:22
Chloride 113 mmol/L (98-107) H 08/24/24 05:22
Carbon Dioxide 15 mmol/L (22-30) L 08/24/24 05:22
BUN 98 mg/dl (9-20) H 08/24/24 05:22
Creatinine 5.7 mg/dL (0.7-1.3) H* 08/24/24 05:22
eGFR 9.78 08/24/24 05:22
Glucose 149 mg/dl (70-99) H 08/24/24 05:22
Calcium 8.8 mg/dl (8.4-10.2) 08/24/24 05:22
Albumin 3.5 g/dl (3.5-5.0) 08/23/24 10:11
Physical Exam
-
Vital Signs:
Vital Signs
Temp Pulse Resp BP Pulse Ox
98.0 F 79 18 134/67 96
08/24/24 07:00 08/24/24 07:00 08/24/24 07:00 08/24/24 07:00 08/24/24 08:40
Cardiovascular:: Regular rate and rhythm
Respiratory:: Bilateral: CTA
Lung Excursion:: Normal
Abdomen:: Nontender and Soft
Bowel Sounds:: Normal
Extremity Edema:: +1: Bilateral:
Herrera Catheter: No
Other Findings::
dose straight cath
[2024-08-24] MEDS: PHOSLO 1334 MG PO (11:18)
[2024-08-24 11:34] LABS: Glycohemoglobin (HgbA1c) 5.7 % (4.0-5.6)
[2024-08-24 12:11] LABS: Hematocrit 27.2 % (39.0-52.0); Hemoglobin 8.4 g/dL (13.0-18.0)
--- NOTE | 2024-08-24 12:19 | W.DCSUMMARY ---
Discharge Summary
Discharge Data
Date of Admission: 08/23/24
Date of Discharge: 08/24/24
-
Pending Results: No
Hospital Course
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
5.1. Patient reported feeling fatigued more then usual over past 3 weeks. FOBT positive as per ED message. No overt blood in stool and no black stool seen as per patient. Ordered 2 units of PRBC by ED, feeling better afterwards. As per GI - no
indication for EGD/colonoscopy as anemia most likely multifacorial. Established hematology appt in [facility] on 08/27/24. US LE showed chronic vs recent DVT. Since vendor does not recommend dose reduction for treatment of VTE - start ELiquis 10mg BID for
7 days then 5mg BID and patient was recommended to have that discussed with the pricing lead. No more over bleeding and H&H stable.
I have spent at least 39min reviewing chart, test results, communication with consultants, family and direct patient care
Patient was managed for:
#Acute symptomatic anemia, multifactorial on anemia of chronic disease
#CKD stage 5 with metabolic acidosis
#DM type 2 with nephropathy
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
#Neurosarcoidosis
#Chronic prostatitis
#BPH
#HLD
Discharge Plan
-
Patient Disposition: Home (Routine Discharge)
Discharge Diagnosis/Procedures: Anemia
Diet: Regular
Driving Restrictions: As prior to admission
Referrals:
Jay Jaimes DO [Family Provider] -
Prescriptions:
New
pantoprazole 40 mg Tablet,Delayed Release (Dr/Ec)
40 mg PO DAILY Qty: 30 0RF
Eliquis DVT-PE Treat 30D Start 5 mg (74 tabs) tablets,dose pack
See Rx Instructions .ROUTE .COMPLEX Qty: 74 0RF
Rx Instructions:
10mg BID for 7 days, then 5mg BID
Continued
mycophenolate mofetil [CellCept] 500 mg Tablet
500 mg PO BID
tamsulosin 0.4 mg Capsule
0.4 mg PO BID
sodium bicarbonate 650 mg Tablet
1,950 mg PO BID
B complex with C 20-folic acid 1 mg Capsule
1 cap PO DAILY
ezetimibe 10 mg Tablet
10 mg PO DAILY
calcium acetate 667 mg Tablet
1,334 mg PO TID
atorvastatin 10 mg Tablet
10 mg PO HS Qty: 30 0RF
finasteride 5 mg Tablet
5 mg PO DAILY Qty: 30 0RF
ascorbic acid (vitamin C) [Vitamin C] 500 mg Tablet
500 mg PO DAILY
oxycodone 5 mg Tablet
5 mg PO DAILY
cholecalciferol (vitamin D3) [Vitamin D3] 25 mcg (1,000 unit) Tablet
25 mcg PO DAILY
Patient Own Insulin Pump
0 unit SC .VIA NOVOLOG
calcium polycarbophil [FiberCon] 625 mg Tablet
625 mg PO QPM
acetaminophen 500 mg Tablet
1,000 mg PO DAILYPRN PRN (Reason: mild pain)
apixaban 2.5 mg Tablet
2.5 mg PO BID
ciprofloxacin HCl 500 mg Tablet
500 mg PO BID
Patient Comments:
started 08/20/24. take for 10 days
Visbiome 112.5 billion cell Capsule
1 cap PO HS
Discharge Orders:
Discharge Patient (As Directed); Ordered 08/24/24
Ordered By: Xiang Layton
Discharge Date and Time
Print Language: COLOMBIAN
[2024-08-24 12:46] LABS: APTT > 200.0 Sec (23.4-35.0)
[2024-08-24 13:49] VITALS: BP 137/62
--- NOTE | 2024-08-24 14:06 | CM ---
CM spoke with Nj and his to complete IA. Nj lives with his in a 3 story home with 5 entry steps; 8 steps to the 2nd floor where there is a full bathroom. Pt does not drive.
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
Plan: Discharge home with spouse; will resume outpatient therapy at [facility].
PCP: Jay Jaimes
Pharmacy: [facility] in [place]
--- NOTE | 2024-08-24 16:36 | PN.DE ---
Diabetes Education
- -
08/24/2024: Consulted for insulin pump management.
74 year old male with PMH: Chronic DVT, Neurosarcoidosis, Chronic prostatitis, BPH, HLD and T1DM x 55 years and has been using an insulin pump for over 25 yrs. He routinely follows up with his [facility] [address] [facility] at [place]. A1C Pending, Cr
6.1
He is currently using the Tandem T-Slim with NovoLog insulin and has a [employer] G6 glucose monitor. His glucose is stable and in range. FBG 149 this AM.
Pump settings are as follows:
Basal ICR ICF Target
12am 0.1 1:20 1:90 110
3am 0.4 1:20 1:90 110
6am 0.6 1:20 1:90 110
10am 0.6 1:20 1:90 110
7pm 0.6 1:20 1:90 110
24 hour basal total 12.3 units
Active insulin 3 hours
Will make no changes to current pump settings. Discussed with Hospitalist and Nurse.
Will cont to follow him while he remains in the hospital
== END 2024-08-24 17:54 | disposition home or self-care (01) | DRG 683 ==
LOC: 4 EAST ACU 12:11
PROVIDERS: Physician Assistant; ADMITTING PHYSICIAN Internal Medicine; CONSULT PHYSICIAN Internal Medicine; CONSULT PHYSICIAN Internal Medicine Gastroenterology; EMERGENCY PHYSICIAN Emergency Medicine; FAMILY PHYSICIAN Family Medicine Sports Medicine
PROC: 30233N1 Transfusion of Nonautologous Red Blood Cells into Peripheral Vein, Percutaneous Approach (ICD-10-PCS; 2024-08-23)
DX: N18.5 Chronic kidney disease, stage 5 (principal); E87.22 Chronic metabolic acidosis; K92.2 Gastrointestinal hemorrhage, unspecified; I82.511 Chronic embolism and thrombosis of right femoral vein; I82.531 Chronic embolism and thrombosis of right popliteal vein; I82.551 Chronic embolism and thrombosis of right peroneal vein; I82.532 Chronic embolism and thrombosis of left popliteal vein; R79.89 Other specified abnormal findings of blood chemistry; D63.1 Anemia in chronic kidney disease; E10.40 Type 1 diabetes mellitus with diabetic neuropathy, unspecified; E78.00 Pure hypercholesterolemia, unspecified; N40.0 Benign prostatic hyperplasia without lower urinary tract symptoms; N41.1 Chronic prostatitis; E10.22 Type 1 diabetes mellitus with diabetic chronic kidney disease; D86.89 Sarcoidosis of other sites; G93.9 Disorder of brain, unspecified; E83.39 Other disorders of phosphorus metabolism; Z66 Do not resuscitate; Z96.653 Presence of artificial knee joint, bilateral; Z98.2 Presence of cerebrospinal fluid drainage device; Z87.440 Personal history of urinary (tract) infections; Z79.01 Long term (current) use of anticoagulants; Z11.52 Encounter for screening for COVID-19; Z80.0 Family history of malignant neoplasm of digestive organs; Z79.624 Long term (current) use of inhibitors of nucleotide synthesis; Z79.4 Long term (current) use of insulin
CPT/HCPCS: 36430; 80048; 80053; 82607; 82728; 82746; 82962; 83036; 83540; 83550; 83615; 83735; 85014; 85018; 85025; 85045; 85730; 86850; 86900; 86901; 86920; 87502; 87811; 93970; 96374; 96375; 99285; P9016

== ENCOUNTER 2024-11-27 12:23 | Emergency (ER) | payer MEDICARE, OTHER, SELFPAY ==
[2024-11-27 12:32] VITALS: BP 175/78
[2024-11-27 13:06] LABS: % Basophils 0.5 % (0-2); % Eosinophils 2.9 % (0-6); % Immature Granulocytes 0.3 % (0-0.5); % Lymphocytes 13.1 % (20.5-51.1); % Monocytes 9.4 % (1.7-9.3); % Neutrophils 73.8 % (42.2-75.2); Absolute Eosinophils 0.2 10^3/uL (0-0.7); Absolute Lymphocytes 0.8 10^3/uL (1.2-3.4); Absolute Monocytes 0.6 10^3/uL (0.1-0.6); Absolute Neutrophils 4.6 10^3/uL (1.4-6.5); Hematocrit 36.2 % (39.0-52.0); Hemoglobin 10.5 g/dL (13.0-18.0); Mean Corpuscular Hgb 29.4 pg (27.0-31.0); Mean Corpuscular Volume 101.4 fL (80.0-94.0); Mean Platelet Volume 11.1 fL (7.4-10.4); Nucleated Red Blood Cells % 0 % (-); Platelet Count 222 10^3/uL (130-400); Red Blood Cell Count 3.57 10^6/uL (4.70-6.10); Red Cell Dist. Width 16.6 % (11.5-14.5); White Blood Cell Count 6.2 10^3/uL (4.8-10.8)
[2024-11-27 13:26] LABS: ALT (SGPT) < 10 U/L (0-50); AST (SGOT) 15 U/L (17-59); Alkaline Phosphatase 119 U/L (38-126); Blood Urea Nitrogen 109 mg/dl (9-20); Calcium 9.1 mg/dl (8.4-10.2); Carbon Dioxide 18 mmol/L (22-30); Chloride 114 mmol/L (98-107); Glucose 109 mg/dl (70-99); Potassium 5.4 mmol/L (3.5-5.1); Sodium 142 mmol/L (135-145); Total Bilirubin 0.5 mg/dl (0.2-1.3); eGFR 9.39
--- NOTE | 2024-11-27 14:48 | ED.GENMED ---
History of Present Illness
General
Chief Complaint: Overdose Unintentional
Source: patient and spouse
Exam Limitations: none
Time Seen by Provider: 11/27/24 14:41
Nursing documentation reviewed up to this point in time: agreed with
History of Present Illness
History of Present Illness:
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 He poured the wrong bottle of pills
into his hand and took them. He states about an hour later felt nauseous and had dry heaves but since, he feels 'fine.'
Past History
Past History
ED Past Medical History: HTN, Hypercholesterolemia, IDDM, Renal failure, Other (Brain lesions, MANAGER CARDIAC shunt, diabetes, UTI, ) and Other (BPH, DVT on Eliquis, MANAGER CARDIAC shunt)
ED Past Surgical History: Orthopedic (Tanner knee replacements) and Other (MANAGER CARDIAC shunt)
Social History
Tobacco: Non-smoker
Alcohol: None
Personal:
Living: with family
Employment: Retired
Review of Systems
Review of Systems
Allergies reviewed?: Yes
All Other Systems: ROS reviewed and negative except as documented in HPI and ROS
Constitutional: Denies fever
Respiratory: Denies trouble breathing
Cardiac: Denies chest pain
ABD/GI: Reports nausea; Denies abdominal pain, vomiting or diarrhea
: Reports other (ESRD, not yet on dialysis. He is on Cipro for a UTI )
Musculoskeletal: Reports no symptoms
Skin: Reports no symptoms
Neurological: Reports no symptoms
Phy Exam
Physical Exam
Physical Exam:
GENERAL: No acute distress. A&Ox3.
CONSTITUTIONAL: Afebrile.
EYES: clear, conjunctivae normal
ENMT: moist mucus membranes, Pharynx nl
RESPIRATORY: Regular respirations, nonlabored, lungs clear.
CARDIOVASCULAR: Regular rate and rhythm, no murmurs, no rubs.
GI: Soft, nontender, normal BS
MUSCULOSKELETAL: Moves with ease. Well perfused.
SKIN: Warm, dry, pink
PSYCH: Normal mood and affect. Well kept, interactive and appropriate
NEUROLOGIC: Awake, alert and oriented. No focal neurological deficits
Course
Orders/Labs/Results
Orders:
Orders
11/27/24 12:39
Electrocardiogram (*1) Urgent
Reason for Study: QTc Monitoring
11/27/24 12:40
EKG- Treatment ONCE
11/27/24 12:48
Complete Blood Count/With Diff Urgent
Comprehensive Metabolic Panel Urgent
Abnormal Lab Results
11/27/24
12:48
RBC 3.57 L 10^6/uL
(4.70-6.10)
Hgb 10.5 L g/dL
(13.0-18.0)
Hct 36.2 L %
(39.0-52.0)
MCV 101.4 H fL
(80.0-94.0)
MCHC 29.0 L g/dL
(33.0-37.0)
RDW 16.6 H %
(11.5-14.5)
MPV 11.1 H fL
(7.4-10.4)
Absolute Lymphs (auto) 0.8 L 10^3/uL
(1.2-3.4)
Lymphocytes % 13.1 L %
(20.5-51.1)
Monocytes % 9.4 H %
(1.7-9.3)
Potassium 5.4 H mmol/L
(3.5-5.1)
Chloride 114 H mmol/L
(98-107)
Carbon Dioxide 18 L mmol/L
(22-30)
BUN 109 H* mg/dl
(9-20)
Creatinine 5.9 H* mg/dL
(0.7-1.3)
Glucose 109 H mg/dl
(70-99)
AST 15 L U/L
(17-59)
Total Protein 6.0 L g/dl
(6.3-8.2)
11/27/24 12:48
11/27/24 12:48
Vital Signs
Initial and Last Documented VS:
Initial Vital Signs
Temp Pulse Resp Pulse Ox
97.7 F 62 18 97
11/27/24 12:30 11/27/24 12:30 11/27/24 12:30 11/27/24 12:30
Last Documented Vital Signs
Temp Pulse Resp BP Pulse Ox
97.7 F 62 18 175/78 97
11/27/24 12:30 11/27/24 12:30 11/27/24 12:30 11/27/24 12:32 11/27/24 14:41
Foreign Language Teacher consulted with Physician
Foreign Language Teacher consulted with physician?: Yes
Name of Physician Consulted: Adolfo
MDM/Problems Addressed
Differential Diagnosis Includes:
medication SE: QT prolongation, tendon rupture, n/v
MDM/Problems Addressed:
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 He poured the wrong bottle of pills
into his hand and took them. He states about an hour later felt nauseous and had dry heaves but since, he feels 'fine.'
CBC, CMP consistent with his baseline.
Asymptomatic
EKG NSR
Spoke with [facility]: With Dr. Umana who mentions risk of tendon rupture, QTc prolongation, change in mental state, none of which have occurred so he says there is not really anything more to do.
Patient's has notified his rubber press tender Dr. Zuleta who recommended he come here
Patient's PCP Dr. Jaimes has not called them back yet but she will notify him tomorrow as he was the prescribing doctor.
*EKG
EKG Intrepretation Date: 11/27/24
Interpretation: normal
Heart Rate: 63
Rate: normal
Rhythm: sinus
Purdys: normal axis
Interval: normal interval
QRS Pattern: normal QRS
Ischemia: no ischemia
*Critical Care Note
Total Time (30-74mins, 75-104mins- exclusive of procedures): Not Applicable
ED Attending Note
-
Portions of this chart may have been created with voice recognition software.� Occasional wrong word or��sound alike� substitutions may have occurred due to the inherent limitations of voice recognition software.
Discharge Plan
Departure
Patient Disposition: Home (Routine Discharge)
Date of Disposition: 11/27/24
Time of Disposition: 15:26
Patient with high blood pressure during this ER visit?: No
Condition: Good
Discharge Problem:
Accidental medication overdose
Prescriptions:
No Action
mycophenolate mofetil [CellCept] 500 mg Tablet
500 mg PO BID
tamsulosin 0.4 mg Capsule
0.4 mg PO BID
sodium bicarbonate 650 mg Tablet
1,950 mg PO BID
B complex with C 20-folic acid 1 mg Capsule
1 cap PO DAILY
ezetimibe 10 mg Tablet
10 mg PO DAILY
calcium acetate 667 mg Tablet
1,334 mg PO TID
atorvastatin 10 mg Tablet
10 mg PO HS Qty: 30 0RF
finasteride 5 mg Tablet
5 mg PO DAILY Qty: 30 0RF
ascorbic acid (vitamin C) [Vitamin C] 500 mg Tablet
500 mg PO DAILY
oxycodone 5 mg Tablet
5 mg PO DAILY
cholecalciferol (vitamin D3) [Vitamin D3] 25 mcg (1,000 unit) Tablet
25 mcg PO DAILY
Patient Own Insulin Pump
0 unit SC .VIA NOVOLOG
calcium polycarbophil [FiberCon] 625 mg Tablet
625 mg PO QPM
acetaminophen 500 mg Tablet
1,000 mg PO DAILYPRN PRN (Reason: mild pain)
ciprofloxacin HCl 500 mg Tablet
500 mg PO BID
Patient Comments:
started 08/20/24. take for 10 days
Visbiome 112.5 billion cell Capsule
1 cap PO HS
pantoprazole 40 mg Tablet,Delayed Release (Dr/Ec)
40 mg PO DAILY Qty: 30 0RF
Eliquis DVT-PE Treat 30D Start 5 mg (74 tabs) tablets,dose pack
See Rx Instructions .ROUTE .COMPLEX Qty: 74 0RF
Rx Instructions:
10mg BID for 7 days, then 5mg BID
Referrals:
Jay Jaimes DO [Family Provider] -
Activity Restrictions/Additional Instructions:
As we discussed, Cipro can cause tendon ruptures so for the next few days moves slowly, try not to strain your Achilles tendon.
Consider yourself finished with your Cipro prescription
Your kidney function is at its baseline, your EKG is normal
Notify your PCP of today's visit since he is the one that prescribed the medication.
Interventions
Interventions:
*Risk Screen - Suicide Last Done: 11/27/24 14:41
*General Assessment Last Done: 11/27/24 14:41
*Neglect/Abuse Screening Last Done: 11/27/24 14:41
*ED COVID-19 Vaccine History Last Done: 11/27/24 14:45
*Nursing Disposition Last Done: 11/27/24 15:29
ED- Pulmonary Assessment Last Done: 11/27/24 14:41
ED-Psychological Assessment Last Done: 11/27/24 14:41
ED- Neurological Assessment Last Done: 11/27/24 14:41
ED- Cardiac Assessment Last Done: 11/27/24 14:41
Discharge Date and Time
Discharge Date/Time: 11/27/24 15:33
Print Language: MALTESE
== END 2024-11-27 15:33 | disposition home or self-care (01) ==
LOC: EMR 12:23
PROVIDERS: Student in an Organized Health Care Education/Training Program; EMERGENCY PHYSICIAN Student in an Organized Health Care Education/Training Program; FAMILY PHYSICIAN Family Medicine Sports Medicine
DX: T36.8X1A Poisoning by other systemic antibiotics, accidental (unintentional), initial encounter (principal); R11.0 Nausea; E11.22 Type 2 diabetes mellitus with diabetic chronic kidney disease; I12.0 Hypertensive chronic kidney disease with stage 5 chronic kidney disease or end stage renal disease; N18.6 End stage renal disease; E78.00 Pure hypercholesterolemia, unspecified; Z86.718 Personal history of other venous thrombosis and embolism; Z79.01 Long term (current) use of anticoagulants; Z98.2 Presence of cerebrospinal fluid drainage device
CPT/HCPCS: 99284; 80053; 85025; 93005

== ENCOUNTER → 2025-05-14 12:29 | Outpatient (REF) | payer MEDICARE, OTHER, SELFPAY | LOC: WOUND 12:29 | PROVIDERS: ATTENDING PHYSICIAN Surgery; FAMILY PHYSICIAN Family Medicine Sports Medicine | DX: L89.620 Pressure ulcer of left heel, unstageable (principal); L84 Corns and callosities | CPT/HCPCS: 99213 ==

== ENCOUNTER 2025-06-06 19:43 | Inpatient (IN) | payer MEDICARE, OTHER, SELFPAY ==
[2025-06-06] VITALS (10 sets, daily range): BP systolic 119–161; BP diastolic 56–88; BMI 28.2
--- NOTE | 2025-06-06 16:49 | ED.GENMED ---
History of Present Illness
<Derek Alexandra PA-C - Last Filed: 06/06/25 23:52>
General
Chief Complaint: Breathing Problem
Source: patient and spouse
Time Seen by Provider: 06/06/25 16:38
History of Present Illness
History of Present Illness:
75-year-old male with past medical history of neurosarcoidosis, chronic kidney disease (due to start dialysis next month), insulin-dependent diabetes, previous DVT (currently maintained on Eliquis 2-1/2 mg twice daily with reported good compliance)
presenting to the ER at the request of his primary doctor for evaluation of progressive shortness of breath and exertional dyspnea over the last few weeks accompanied with a cough that he previously been with minor sputum production but now
intermittently blood-tinged and with bilateral lower extremity edema. Patient follows with most of his long-term care physicians at the [facility]. He denies any fevers or infectious symptoms. No pleurisy, chest pain,
palpitations, diaphoresis, abdominal pain, nausea or vomiting. No recent travel or known sick contacts. Social history was negative for cigarettes or tobacco products
Past History
<Derek Alexandra PA-C - Last Filed: 06/06/25 23:52>
Past History
ED Past Medical History: HTN, Hypercholesterolemia, IDDM, Renal failure, Other (Brain lesions, D[employer] shunt, diabetes, UTI, ) and Other (BPH, DVT on Eliquis, D[employer]EL [employer] shunt)
ED Past Surgical History: Orthopedic (Tanner knee replacements) and Other (DIESEL MECH[employer]STRU[employer] shunt)
Social History
Tobacco: Non-smoker
Alcohol: None
Drug: None
Personal:
Living: with family
Employment: Retired
Review of Systems
<Derek Alexandra PA-C - Last Filed: 06/06/25 23:52>
Review of Systems
All Other Systems: ROS reviewed and negative except as documented in HPI and ROS
Phy Exam
<Derek Alexandra PA-C - Last Filed: 06/06/25 23:52>
Physical Exam
Physical Exam:
GENERAL: Alert , in no apparent distress
HEAD: Normocephalic atraumatic
EYE: clear conjunctiva
NECK: Supple
ENT: o/p clr, mmm.
CARDIAC: Regular rate and rhythm .
LUNGS: 88% RA, 94% 2L NC. Rales base bilateral, no respiratory distress. speaking full sentences. no obvious dyspnea or accessory muslce use
ABDOMEN: Soft, without focal tenderness, no r/g, no cvat
NEUROLOGICAL: Alert and oriented
SKIN: Warm and dry, skin intact.
MUSCULOSKELETAL: 1+ edema to the ankles bilaterally, well perfused.
PSYCH: Normal and appropriate interaction.
Scores
<Derek Alexandra PA-C - Last Filed: 06/06/25 23:52>
Heart Failure Risk
Heart Failure Risk Score: Yes
History of Stroke or TIA: No
History of intubation for respiratory distress: No
Heart rate on ED arrival >/= 110: No
SaO2 <90% on arrival on room air: Yes
HR >/=110 during 3min walk test (or too ill to perform test): Yes
ECG has acute ischemic changes: No
Urea >/=12mmol/L (BUN 33.6mg/dL): Yes
Serum CO2>/=35mmol/L: No
Troponin I or T elevated to [place] Level (0.4mg/dL): No
NT-proBNP >/=5,000ng/L (5,000pg/ml): Yes
HF Risk Score: 5
Admission Status: VERY HIGH RISK 39.8% Consider admission to hospital
Heart Score for Chest Pain Patients
STEMI patient?: Not applicable
Withdrawal Assessment of Alcohol
Withdrawal Assessment Completed?: Not applicable
Course
<Derek Alexandra PA-C - Last Filed: 06/06/25 23:52>
Orders/Labs/Results
Orders:
Orders
06/06/25 Dinner
2000 calorie (17 carb) Diabetic
Fluid Restriction: 1440 mL/day (48 oz)
Diabetic Diet: Potassium, 2 Gram
Sodium, 2 Gram
06/06/25 16:07
EKG [Electrocardiogram (*1)] Urgent
Reason for Study: Shortness of Breath
EKG- Treatment ONCE
06/06/25 16:45
CR Chest - 2 Views Urgent
Comment:
Reason For Exam: SOB, cough, intermittent hemoptysis
Venous Doppler Lwr Ext Bilat [US Periph Venous LOWER Ext Tanner] Urgent
Comment:
Reason For Exam: hx dvt, edema
06/06/25 16:48
Complete Blood Count/With Diff Urgent
Comprehensive Metabolic Panel Urgent
NT-proBNP Urgent
PTT Urgent
Prothrombin Time Urgent
Troponin I Urgent
06/06/25 17:12
COVID-19 Antigen Urgent
Source: Nasal Swab
Influenza A+B Rapid Molecular Urgent
SETH Source: Nasal Swab
Specimen Description:
06/06/25 17:29
Furosemide [Lasix] 20 mg IV NOW STA
06/06/25 18:29
Heparin 7,300 units IV NOW STA
Nursing to Place Non Medication Order As Directed
Physician Order: PTT 6 hours after initial start of Heparin infusion
06/06/25 18:30
Heparin [id number] Units/250 ml 25,000 units in 250 ml IV PER PROTOCOL
Weight to be used for heparin protocol in kilograms (kg):: 91.6
Protocol:: DVT/PE
PTT Goal Range to be used:: PTT 73 to 111 seconds
Order type:: Initial
INITIAL Infusion Dose (UNITS/KG/hr) & then follow protocol:: 18 units/kg/hr
Infusion Dose in UNITS/hr & then follow protocol (UNITS/hr):: 1,600
INFUSION RATE in mL/hr & then follow protocol (mL/hr):: 16
For DVT/PE algorithm, re-bolus for low PTT?: Yes
PTT less than or equal to 64 seconds:: Re-bolus 80 units/kg (max 10,000units). Increase by 400 units/hr
(+ 4mL/hr)
PTT 64.1 to 72.9 seconds:: Re-bolus 40 units/kg (max 5,000 units). Increase by 200 units/hr
(+ 2mL/hr)
PTT 73 to 111 seconds:: Target Range. No change in rate.
PTT 111.1 to 130.9 seconds:: Decrease rate by 200 units/hr (- 2 mL/hr)
PTT 131 to 199.9 seconds:: HOLD for 1 hr. Then decrease by 300 units/hr (- 3mL/hr)
PTT greater than or equal to 200 seconds:: HOLD for 2 hrs & Notify Provider. Then decrease by 400 units/hr
(- 4mL/hr)
Lab follow-up:: Each change, PTT q6h until 2 consecutive are therapeutic. Then
PTT daily.
06/06/25 18:36
Heparin 3,700 units IV PRN PRN
Heparin 7,300 units IV PRN PRN
06/06/25 18:45
Furosemide [Lasix] 80 mg IV NOW STA
06/06/25 18:46
Consult Interventional Radiology [IRAD CONSULT] Routine
Consulting Provider: Joe Zimmerman
Was physician already notified: Yes
Procedure being ordered, including laterality if applicable: tunneled dialysis catheter
Acknowledgement that appropriate orders are entered: Yes
06/06/25 18:59
Hemodialysis treatment As Directed
Treatment date:: 06/07/25
Treatment type: Hemodialysis
Ultrafiltration (kg): 1.5
Treatment time (duration): 2 hours 15 minutes
Use dialysis access:: Tunneled Cath
Dialyzer:: Optiflux 160
Blood flow rate minimum: 200
Blood flow rate maximum: 250
Dialysis flow rate: Other
Dialysis flow rate other:: 400
Dialysate temperature: 36 degrees Celsius
Sodium (Na): 140
Potassium (K): 2
Calcium (Ca): 2.5
Bicarbonate (HCO3): 35
06/06/25 19:20
Admit/Transfer Patient As Directed
Co-Sign Provider:
Level of Care: Inpatient admission
Assign to:: Telemetry
Physician / Group: Beto
Diagnosis: ESRD on HD, DVT +/- PE
Reason for Telemetry: Arrhythmia
Date to Stop Telemetry: 06/09/25
Time to Stop Telemetry: 11:00
Reason for Hospitalization: ESRD on HD, DVT +/- PE
Expected length of stay greater than two midnights?: Yes
ELOS- Estimated Length of Stay in days: 4
I certify the patient meets the requirements for IP care: Yes
PRN Pain Medication Management As Directed
May give lesser potent ordered pain med per pt: Yes
preference::
Protocol:: Medication orders for pain may be administered in a
manner that supports deferring to patient preference
when the pt is:
- Requesting an ordered lesser potent pain medication.
Least to most potent pain medications are defined
as: acetaminophen < NSAID < tramadol < opioids
(morphine, oxycodone, hydromorphone).
- Requesting a lesser dose of the same medication IF
ORDERED.
- Requesting a less intrusive route of administration
if both routes are prescribed by the provider (PO <
IV).
06/06/25 19:23
Code Status As Directed
Resuscitation Status: Do not resuscitate
Reached after discussion with pt or family/Healthcare POA: Yes
DNR Bracelet Application ONCE
06/06/25 20:26
Acetaminophen [Tylenol] 650 mg PO Q4HPRN PRN
Dextrose 50%-Water [Dextrose 50% Syringe] 12.5 grams IV [id number] PRN
Glucagon [GlucaGen] 1 mg IM PRN PRN
Patient Own Insulin Pump See Dose Instructions SC .VIA NOVOLOG
Sodium Bicarbonate 1,950 mg PO BID
Tamsulosin [Flomax] 0.4 mg PO BID
06/06/25 20:26
Diabetes Management by Nurse Practitioner Routine
Consulting Provider: Dionna Bingham
Was provider already notified?: Yes
Reason for Consult: Insulin Management
NEPHROLOGY CONSULT Routine
Consulting Provider: Norma Beckford
Was physician already notified: Yes
Reason for consult: RAJ on CKD / ESRD
WOUND/OSTOMY CONSULT Routine
Reason for Consult: L Heel Wound
Heparin Protocol- PTT Orders As Directed
PTT per Heparin protocol: -Obtain CBC and baseline PTT - if not already collected.
-Obtain PTT 6 hours from start of infusion. Then, every 6 hours until 2 consecutive
PTT's are therapeutic. Then, PTT Daily.
-With each rate change, obtain PTT every 6 hours until 2 consecutive PTT's are
therapeutic. Then, PTT Daily.
Activity As Directed
Activity Level: Ambulate
With Assistance
Bedside Glucose Monitoring As Directed
Frequency: AC&HS
Additional Instructions:: Change to q6h if pt on TPN, tube feeding or not eating
Bladder Scan As Directed
Follow Bladder Retention/Intermittent Cath Algorithm?: Yes
PRN if no void in __ hours: 6
Frequency: Per Retention Algorithm
If Bladder Scan Result >: 400
then:: Straight cath
EKG with chest pain [ECG as needed] As Directed
ECG as needed for:: Chest Pain
I/O [Intake/ Output] As Directed
Frequency: Per unit guidelines
Notify MD As Directed
Notify physician if: PTT is greater than or equal to 200.
Straight Cath As Directed
Frequency: Per Retention Algorithm
Additional Instructions: straight cath as needed per acute urinary retention algorithm for 24 hrs
Additional Instructions: for bladder scan greater than 400 mL
Vital Signs As Directed
Frequency: Per unit guidelines
Weight As Directed
Frequency: Daily
Oxygen Therapy [O2 Therapy] [RESP] Routine
Titrate/Wean O2 to maintain O2 sat greater than (%): 94
06/06/25 21:00
Calcium Acetate [Phoslo] 1,334 mg PO AC
06/06/25 22:00
Atorvastatin [Lipitor] 10 mg PO HS
Trazodone [Desyrel] 50 mg PO HS
06/07/25 01:30
PTT Urgent
06/07/25 06:00
Echo 2D MMode Doppler [Echo 2D MMode Color/Doppler] IN AM
Reason for Study: SOB
NPO
Allow oral meds: Yes
Allow clear liquids: Sips of Clears
NPO for procedure after (time): midnight
Basic Metabolic Panel IN AM
Cardiovascular Evaluation IN AM
Complete Blood Count/No Diff IN AM
Glycohemoglobin (HgbA1c) IN AM
LFT [Wuusc-Mowd-Ofhqzmu] IN AM
Magnesium IN AM
Phosphorus IN AM
06/07/25 08:00
Albumin Human 25% 50 ml [Flexbumin 25% For Hemodialysis] 12.5 grams IV HD-Q1H
Amlodipine [Norvasc] 5 mg PO DAILY
Finasteride [Proscar] 5 mg PO DAILY
Mannitol 25% 12.5 grams IV HD-Q1H
Metoprolol [Lopressor] 50 mg PO BID
06/08/25 06:00
Complete Blood Count/No Diff Q2D
Comment: notify provider: Platelet count < 130,000 or decrease by 50% from baseline
06/09/25 11:00
DC Protocol for Telemetry ONCE
06/10/25 06:00
Complete Blood Count/No Diff Q2D
Comment: notify provider: Platelet count < 130,000 or decrease by 50% from baseline
06/12/25 06:00
Complete Blood Count/No Diff Q2D
Comment: notify provider: Platelet count < 130,000 or decrease by 50% from baseline
06/14/25 06:00
Complete Blood Count/No Diff Q2D
Comment: notify provider: Platelet count < 130,000 or decrease by 50% from baseline
06/16/25 06:00
Complete Blood Count/No Diff Q2D
Comment: notify provider: Platelet count < 130,000 or decrease by 50% from baseline
06/18/25 06:00
Complete Blood Count/No Diff Q2D
Comment: notify provider: Platelet count < 130,000 or decrease by 50% from baseline
06/20/25 06:00
Complete Blood Count/No Diff Q2D
Comment: notify provider: Platelet count < 130,000 or decrease by 50% from baseline
06/22/25 06:00
Complete Blood Count/No Diff Q2D
Comment: notify provider: Platelet count < 130,000 or decrease by 50% from baseline
Abnormal Lab Results
06/06/25
16:48
RBC 3.64 L 10^6/uL
(4.70-6.10)
Hgb 10.0 L g/dL
(13.0-18.0)
Hct 33.8 L %
(39.0-52.0)
MCHC 29.6 L g/dL
(33.0-37.0)
RDW 15.5 H %
(11.5-14.5)
MPV 10.6 H fL
(7.4-10.4)
Absolute Monos (auto) 0.7 H 10^3/uL
(0.1-0.6)
Lymphocytes % 14.6 L %
(20.5-51.1)
Eosinophils % 8.7 H %
(0-6)
PT 16.5 H Sec
(11.4-14.6)
APTT 40.0 H Sec
(23.4-35.0)
Potassium 5.3 H mmol/L
(3.5-5.1)
BUN 148 H* mg/dl
(9-20)
Creatinine 10.0 H* mg/dL
(0.7-1.3)
Glucose 120 H mg/dl
(70-99)
AST 16 L U/L
(17-59)
06/06/25 16:48
06/06/25 16:48
Vital Signs
Initial and Last Documented VS:
Initial Vital Signs
Temp Pulse Resp BP Pulse Ox
97.7 F 62 16 138/56 88
06/06/25 16:03 06/06/25 16:03 06/06/25 16:03 06/06/25 16:03 06/06/25 16:03
Last Documented Vital Signs
Temp Pulse Resp BP Pulse Ox
97.5 F 60 20 149/67 96
06/06/25 20:46 06/06/25 20:46 06/06/25 20:46 06/06/25 20:46 06/06/25 22:57
<Abby Mitchell, DO - Last Filed: 06/06/25 18:31>
Orders/Labs/Results
Orders:
Orders
06/06/25 Dinner
2000 calorie (17 carb) Diabetic
Fluid Restriction: 1440 mL/day (48 oz)
Diabetic Diet: Potassium, 2 Gram
Sodium, 2 Gram
06/06/25 16:07
EKG [Electrocardiogram (*1)] Urgent
Reason for Study: Shortness of Breath
EKG- Treatment ONCE
06/06/25 16:45
CR Chest - 2 Views Urgent
Comment:
Reason For Exam: SOB, cough, intermittent hemoptysis
Venous Doppler Lwr Ext Bilat [US Periph Venous LOWER Ext Tanner] Urgent
Comment:
Reason For Exam: hx dvt, edema
06/06/25 16:48
Complete Blood Count/With Diff Urgent
Comprehensive Metabolic Panel Urgent
NT-proBNP Urgent
PTT Urgent
Prothrombin Time Urgent
Troponin I Urgent
06/06/25 17:12
COVID-19 Antigen Urgent
Source: Nasal Swab
Influenza A+B Rapid Molecular Urgent
SETH Source: Nasal Swab
Specimen Description:
06/06/25 17:29
Furosemide [Lasix] 20 mg IV NOW STA
06/06/25 18:29
Heparin 7,300 units IV NOW STA
Nursing to Place Non Medication Order As Directed
Physician Order: PTT 6 hours after initial start of Heparin infusion
06/06/25 18:30
Heparin [id number] Units/250 ml 25,000 units in 250 ml IV PER PROTOCOL
Weight to be used for heparin protocol in kilograms (kg):: 91.6
Protocol:: DVT/PE
PTT Goal Range to be used:: PTT 73 to 111 seconds
Order type:: Initial
INITIAL Infusion Dose (UNITS/KG/hr) & then follow protocol:: 18 units/kg/hr
Infusion Dose in UNITS/hr & then follow protocol (UNITS/hr):: 1,600
INFUSION RATE in mL/hr & then follow protocol (mL/hr):: 16
For DVT/PE algorithm, re-bolus for low PTT?: Yes
PTT less than or equal to 64 seconds:: Re-bolus 80 units/kg (max 10,000units). Increase by 400 units/hr
(+ 4mL/hr)
PTT 64.1 to 72.9 seconds:: Re-bolus 40 units/kg (max 5,000 units). Increase by 200 units/hr
(+ 2mL/hr)
PTT 73 to 111 seconds:: Target Range. No change in rate.
PTT 111.1 to 130.9 seconds:: Decrease rate by 200 units/hr (- 2 mL/hr)
PTT 131 to 199.9 seconds:: HOLD for 1 hr. Then decrease by 300 units/hr (- 3mL/hr)
PTT greater than or equal to 200 seconds:: HOLD for 2 hrs & Notify Provider. Then decrease by 400 units/hr
(- 4mL/hr)
Lab follow-up:: Each change, PTT q6h until 2 consecutive are therapeutic. Then
PTT daily.
06/06/25 18:36
Heparin 3,700 units IV PRN PRN
Heparin 7,300 units IV PRN PRN
06/06/25 18:45
Furosemide [Lasix] 80 mg IV NOW STA
06/06/25 18:46
Consult Interventional Radiology [IRAD CONSULT] Routine
Consulting Provider: Joe Zimmerman
Was physician already notified: Yes
Procedure being ordered, including laterality if applicable: tunneled dialysis catheter
Acknowledgement that appropriate orders are entered: Yes
06/06/25 18:59
Hemodialysis treatment As Directed
Treatment date:: 06/07/25
Treatment type: Hemodialysis
Ultrafiltration (kg): 1.5
Treatment time (duration): 2 hours 15 minutes
Use dialysis access:: Tunneled Cath
Dialyzer:: Optiflux 160
Blood flow rate minimum: 200
Blood flow rate maximum: 250
Dialysis flow rate: Other
Dialysis flow rate other:: 400
Dialysate temperature: 36 degrees Celsius
Sodium (Na): 140
Potassium (K): 2
Calcium (Ca): 2.5
Bicarbonate (HCO3): 35
06/06/25 19:20
Admit/Transfer Patient As Directed
Co-Sign Provider:
Level of Care: Inpatient admission
Assign to:: Telemetry
Physician / Group: Beto
Diagnosis: ESRD on HD, DVT +/- PE
Reason for Telemetry: Arrhythmia
Date to Stop Telemetry: 06/09/25
Time to Stop Telemetry: 11:00
Reason for Hospitalization: ESRD on HD, DVT +/- PE
Expected length of stay greater than two midnights?: Yes
ELOS- Estimated Length of Stay in days: 4
I certify the patient meets the requirements for IP care: Yes
PRN Pain Medication Management As Directed
May give lesser potent ordered pain med per pt: Yes
preference::
Protocol:: Medication orders for pain may be administered in a
manner that supports deferring to patient preference
when the pt is:
- Requesting an ordered lesser potent pain medication.
Least to most potent pain medications are defined
as: acetaminophen < NSAID < tramadol < opioids
(morphine, oxycodone, hydromorphone).
- Requesting a lesser dose of the same medication IF
ORDERED.
- Requesting a less intrusive route of administration
if both routes are prescribed by the provider (PO <
IV).
06/06/25 19:23
Code Status As Directed
Resuscitation Status: Do not resuscitate
Reached after discussion with pt or family/Healthcare POA: Yes
DNR Bracelet Application ONCE
06/06/25 20:26
Acetaminophen [Tylenol] 650 mg PO Q4HPRN PRN
Dextrose 50%-Water [Dextrose 50% Syringe] 12.5 grams IV [id number] PRN
Glucagon [GlucaGen] 1 mg IM PRN PRN
Patient Own Insulin Pump See Dose Instructions [place] .VIA NOVOLOG
Sodium Bicarbonate 1,950 mg PO BID
Tamsulosin [Flomax] 0.4 mg PO BID
06/06/25 20:26
Diabetes Management by Nurse Practitioner Routine
Consulting Provider: Dionna Bingham
Was provider already notified?: Yes
Reason for Consult: Insulin Management
NEPHROLOGY CONSULT Routine
Consulting Provider: Norma Beckford
Was physician already notified: Yes
Reason for consult: RAJ on CKD / ESRD
WOUND/OSTOMY CONSULT Routine
Reason for Consult: L Heel Wound
Heparin Protocol- PTT Orders As Directed
PTT per Heparin protocol: -Obtain CBC and baseline PTT - if not already collected.
-Obtain PTT 6 hours from start of infusion. Then, every 6 hours until 2 consecutive
PTT's are therapeutic. Then, PTT Daily.
-With each rate change, obtain PTT every 6 hours until 2 consecutive PTT's are
therapeutic. Then, PTT Daily.
Activity As Directed
Activity Level: Ambulate
With Assistance
Bedside Glucose Monitoring As Directed
Frequency: AC&HS
Additional Instructions:: Change to q6h if pt on TPN, tube feeding or not eating
Bladder Scan As Directed
Follow Bladder Retention/Intermittent Cath Algorithm?: Yes
PRN if no void in __ hours: 6
Frequency: Per Retention Algorithm
If Bladder Scan Result >: 400
then:: Straight cath
EKG with chest pain [ECG as needed] As Directed
ECG as needed for:: Chest Pain
I/O [Intake/ Output] As Directed
Frequency: Per unit guidelines
Notify MD As Directed
Notify physician if: PTT is greater than or equal to 200.
Straight Cath As Directed
Frequency: Per Retention Algorithm
Additional Instructions: straight cath as needed per acute urinary retention algorithm for 24 hrs
Additional Instructions: for bladder scan greater than 400 mL
Vital Signs As Directed
Frequency: Per unit guidelines
Weight As Directed
Frequency: Daily
Oxygen Therapy [O2 Therapy] [RESP] Routine
Titrate/Wean O2 to maintain O2 sat greater than (%): 94
06/06/25 21:00
Calcium Acetate [Phoslo] 1,334 mg PO AC
06/06/25 22:00
Atorvastatin [Lipitor] 10 mg PO HS
Trazodone [Desyrel] 50 mg PO HS
06/07/25 01:30
PTT Urgent
06/07/25 06:00
Echo 2D MMode Doppler [Echo 2D MMode Color/Doppler] IN AM
Reason for Study: SOB
NPO
Allow oral meds: Yes
Allow clear liquids: Sips of Clears
NPO for procedure after (time): midnight
Basic Metabolic Panel IN AM
Cardiovascular Evaluation IN AM
Complete Blood Count/No Diff IN AM
Glycohemoglobin (HgbA1c) IN AM
LFT [Fcsik-Dklw-Grttvwj] IN AM
Magnesium IN AM
Phosphorus IN AM
06/07/25 08:00
Albumin Human 25% 50 ml [Flexbumin 25% For Hemodialysis] 12.5 grams IV HD-Q1H
Amlodipine [Norvasc] 5 mg PO DAILY
Finasteride [Proscar] 5 mg PO DAILY
Mannitol 25% 12.5 grams IV HD-Q1H
Metoprolol [Lopressor] 50 mg PO BID
06/08/25 06:00
Complete Blood Count/No Diff Q2D
Comment: notify provider: Platelet count < 130,000 or decrease by 50% from baseline
06/09/25 11:00
DC Protocol for Telemetry ONCE
06/10/25 06:00
Complete Blood Count/No Diff Q2D
Comment: notify provider: Platelet count < 130,000 or decrease by 50% from baseline
06/12/25 06:00
Complete Blood Count/No Diff Q2D
Comment: notify provider: Platelet count < 130,000 or decrease by 50% from baseline
06/14/25 06:00
Complete Blood Count/No Diff Q2D
Comment: notify provider: Platelet count < 130,000 or decrease by 50% from baseline
06/16/25 06:00
Complete Blood Count/No Diff Q2D
Comment: notify provider: Platelet count < 130,000 or decrease by 50% from baseline
06/18/25 06:00
Complete Blood Count/No Diff Q2D
Comment: notify provider: Platelet count < 130,000 or decrease by 50% from baseline
06/20/25 06:00
Complete Blood Count/No Diff Q2D
Comment: notify provider: Platelet count < 130,000 or decrease by 50% from baseline
06/22/25 06:00
Complete Blood Count/No Diff Q2D
Comment: notify provider: Platelet count < 130,000 or decrease by 50% from baseline
Abnormal Lab Results
06/06/25
16:48
RBC 3.64 L 10^6/uL
(4.70-6.10)
Hgb 10.0 L g/dL
(13.0-18.0)
Hct 33.8 L %
(39.0-52.0)
MCHC 29.6 L g/dL
(33.0-37.0)
RDW 15.5 H %
(11.5-14.5)
MPV 10.6 H fL
(7.4-10.4)
Absolute Monos (auto) 0.7 H 10^3/uL
(0.1-0.6)
Lymphocytes % 14.6 L %
(20.5-51.1)
Eosinophils % 8.7 H %
(0-6)
PT 16.5 H Sec
(11.4-14.6)
APTT 40.0 H Sec
(23.4-35.0)
Potassium 5.3 H mmol/L
(3.5-5.1)
BUN 148 H* mg/dl
(9-20)
Creatinine 10.0 H* mg/dL
(0.7-1.3)
Glucose 120 H mg/dl
(70-99)
AST 16 L U/L
(17-59)
06/06/25 16:48
06/06/25 16:48
Vital Signs
Initial and Last Documented VS:
Initial Vital Signs
Temp Pulse Resp BP Pulse Ox
97.7 F 62 16 138/56 88
06/06/25 16:03 06/06/25 16:03 06/06/25 16:03 06/06/25 16:03 06/06/25 16:03
Last Documented Vital Signs
Temp Pulse Resp BP Pulse Ox
97.5 F 60 20 149/67 96
06/06/25 20:46 06/06/25 20:46 06/06/25 20:46 06/06/25 20:46 06/06/25 22:57
<Derek Alexandra PA-C - Last Filed: 06/06/25 23:52>
MDM/Problems Addressed
Differential Diagnosis Includes:
PE
CHF
Pneumonia
Pleural effusions
DVT
Malignancy
MDM/Problems Addressed:
75-year-old male presenting to the ER for evaluation of worsening shortness of breath and exertional dyspnea also accompanied with some mild hemoptysis over the last week. Patient found to be hypoxic in triage, placed on 2 L via nasal cannula in
the room with good response. Given his chronic kidney disease unable to obtain CTA of the chest to rule out PE. Will obtain ultrasound of the legs and if this is positive for PE we will then heparinize presuming patient does have PEs. Will obtain
chest x-ray with plan of if there is likely pleural effusions or volume overload that this is the likely cause for his worsening shortness of breath. Patient does take Bumex every other day due to his known renal dysfunction. Anticipate admission
Chronic conditions affecting care: Kidney disease
Acute Exacerbation and/or Progression of Chronic Illness: Kidney disease
<Derek Alexandra PA-C - Last Filed: 06/06/25 23:52>
*Radiology
Radiology exam reviewed: radiology read reviewed
*Pulse Oximetry
SaO2: 88
Oxygen Mode of Delivery: Room air
Patient hypoxic: yes
*EKG
Heart Rate: 62
Rate: normal
Rhythm: sinus arrhythmia
[place]: normal axis
Ischemia: no ischemia
*Lockstitch Machine Operator Interpretation
Rate: normal
Heart Rate: 62
Rhythm: sinus
*Critical Care Note
Total Time (30-74mins, 75-104mins- exclusive of procedures): 40
comment:
Critical care statement: A total of 40 minutes of critical care time was provided for this patient. This includes management of unstable vital signs, evaluation of the patient at bedside, reviewing the patient's pertinent medical records, discussion
with consultants, review of old EKGs and review of pertinent medical records. This time with separate from time utilized to perform the aforementioned documented procedures
Data Reviewed
Review of Other/Old Records Reveals: Labs, Records and Radiology Studies
<Derek Alexandra PA-C - Last Filed: 06/06/25 23:52>
Patient Management
Discussion with other providers: Hospitalist and Integration Architect
Escalation/DeEscalation of care consider admission/obs:
Patient with multiple complications as part of his workup including significantly worsening renal dysfunction a significantly elevated BNP, chest x-ray reveals bilateral pleural effusions and his ultrasound unfortunately did show bilateral occlusive
DVTs. Given this finding combined with his presenting symptoms of shortness of breath with mild hemoptysis I do have significant concern for pulmonary emboli as well. Will initiate patient on heparin given he failed outpatient Eliquis. Will not
perform CTA of the chest due to his current renal dysfunction. I discussed the case with nephrology, interventional radiology and hospitalist team. Nephrology is okay with us treating with 80 mg Lasix IV. Interventional radiology to place a
temporary tunneled dialysis catheter tomorrow morning and nephrology will arrange for dialysis to be initiated tomorrow. Hospitalist team accepts.
ED Attending Note
<Derek Alexandra PA-C - Last Filed: 06/06/25 23:52>
-
Portions of this chart may have been created with voice recognition software.� Occasional wrong word or��sound alike� substitutions may have occurred due to the inherent limitations of voice recognition software.
<Abby Mitchell DO - Last Filed: 06/06/25 18:31>
ED Attending Note
Patient seen and examined by attending physician: Yes
I performed the substantive portion of visit, reviewed & personally made and approve the management plan that is documented in note by myself or SAKSHI.: Yes
I performed a history and physical exam of patient and discussed management with resident, I reviewed resident's note and agree with documented findings and plan of care.: Yes
ED Attending Note:
75-year-old male with history of chronic kidney disease (w/ plan for HD initiation), type 1 diabetes with insulin pump, prior history of DVT on Eliquis presenting to the emergency department for worsening shortness of breath, exertional dyspnea.
Symptoms have been ongoing for the past several weeks, however as of recent has been having sputum production with blood-tinged mucus. Also notes lower extremity edema. Denies any pain to his lower extremities. Denies any fever. Patient is on he
does furosemide every other day. Denies any associated chest pain. Vital signs on arrival significant for hypoxia and patient is not on any home O2.
On exam, patient is in no acute distress, however noted to be hypoxic, improved on supplemental O2. No no acute respiratory distress, however does have some crackles and rales to bilateral bases. Mild lower extremity edema. No tenderness to the
calves. No erythema or warmth to the legs. Differential considerations for patient's presenting symptoms is broad given his comorbidities. Concern for worsening renal dysfunction and volume overloaded state. With productive cough, pneumonia is
also consideration. Given prior history of DVT, PE is also a consideration in the setting of hemoptysis. Plan for laboratory analysis, DVT ultrasound, chest x-ray imaging.
18:30 - Labs are grossly remarkable for acute on chronic kidney dysfunction with creatinine now 10 and BUN greater than 100. Chest x-ray also shows bilateral pleural effusions. Concern for volume overloaded state. Patient will require more urgent
initiation of hemodialysis, ultimately warranting admission. However, DVT ultrasound is also consistent with bilateral DVTs. For this reason, concern for possible underlying PE. Patient not candidate for CT PE given his current renal dysfunction.
Will preemptively start patient on heparin with presumed positive for PE. Regarding his renal dysfunction and fluid overloaded state, will also discussed with nephrology. Again, plan for admission
Discharge Plan
Departure
Patient Disposition: Admit
Date of Disposition: 06/06/25
Time of Disposition: 18:28
Presentation/result/management discussed w/ accepting MD/DO: Hospitalist
Discharge Problem:
CKD (chronic kidney disease), Deep vein thrombosis (DVT) of both lower extremities
Interventions
Interventions:
*Risk Screen - Suicide Last Done: 06/06/25 21:01
*General Assessment Last Done: 06/06/25 16:57
*Neglect/Abuse Screening Last Done: 06/06/25 16:03
*ED- Fall Risk Assessment Last Done: 06/06/25 16:57
*ED COVID-19 Vaccine History Last Done: 06/06/25 21:01
*ED Influenza Vaccine History Last Done: 06/06/25 16:57
*Nursing Disposition Last Done: 06/06/25 20:23
ED- Cardiac Assessment Last Done: 06/06/25 17:36
ED- Pulmonary Assessment Last Done: 06/06/25 17:36
Discharge Date and Time
Discharge Date/Time: 06/06/25 20:24
[2025-06-06 16:57] LABS: Hematocrit 33.8 % (39.0-52.0); Hemoglobin 10.0 g/dL (13.0-18.0); Mean Corp Hgb Conc. 29.6 g/dL (33.0-37.0); Mean Corpuscular Volume 92.9 fL (80.0-94.0); Nucleated Red Blood Cells % 0 % (-); Platelet Count 190 10^3/uL (130-400); Red Cell Dist. Width 15.5 % (11.5-14.5)
[2025-06-06 17:06] LABS: INR 1.28; PT 16.5 Sec (11.4-14.6)
[2025-06-06 17:07] LABS: APTT 40.0 Sec (23.4-35.0)
[2025-06-06 17:26] LABS: Troponin I 0.024 ng/ml
[2025-06-06 17:40] LABS: COVID-19 Antigen Negative (Negative)
[2025-06-06 17:41] LABS: ALT (SGPT) 10 U/L (0-50); AST (SGOT) 16 U/L (17-59); Albumin 3.6 g/dl (3.5-5.0); Alkaline Phosphatase 124 U/L (38-126); Calcium 8.8 mg/dl (8.4-10.2); Carbon Dioxide 26 mmol/L (22-30); Chloride 100 mmol/L (98-107); Glucose 120 mg/dl (70-99); Potassium 5.3 mmol/L (3.5-5.1); Sodium 135 mmol/L (135-145); Total Protein 6.8 g/dl (6.3-8.2)
[2025-06-06 17:55] LABS: Blood Urea Nitrogen 148 mg/dl (9-20); Estimated Creatinine Clearance 7 ml/min; eGFR 4.95
[2025-06-06] MEDS: LASIX 80 MG IV (19:24)
--- NOTE | 2025-06-06 19:29 | HPS.HSE ---
Family Physician
-
Family Physician: Jay Jaimes
Chief Complaint
-
SOB
History of Present Illness
Patient is a 75y M with PMH significant for CKD V, hypertension, DM-I and neurosarcoidosis who presents to ED complaining of SOB since this AM. Patient is followed by Nephrology (Dr. Derek Zuleta) at [place]. He has known CKD V and is preparing
for HD with RUE AVF placed about 2 weeks ago. He has appreciated gradually increasing LE edema and abdominal distention x weeks / months. Patient states that this AM he was extremely SOB. He denies any cough, fevers / chills, chest pain, etc.
Patient presented to the ED for further evaluation.
He is noted to have significant decline in his renal function from prior baseline.
He is noted to have acute and chronic bilateral LE DVTs on Eliquis (2.5mg dose).
Medical History
Past Medical History
Past Medical History: Reports Other
Additional Past Medical History:
CKD V / ESRD
Hypertension
DM-I
Neurosarcoidosis
BPH
DVT
Anemia of CKD
Past Surgical History: Reports Other
Additional Past Surgical History:
RUE AVF
ANKLE PATCH MOLDER Shunt
Social History
Tobacco: Non-smoker
Alcohol: None
Drug: None
Family History
Family History: Not pertinent
Allergies / Home Medications
Allergies reflects when Allergies were last updated in [facility].
Home Medications with original date entered in [facility]
Allergy/Medication List:
Allergies
Allergy/AdvReac Type Severity Reaction Status Date / Time
No Known Allergies Allergy Verified 06/06/25 16:03
Home Medications
calcium acetate 667 mg tablet 1,334 mg PO TID Kidney Disease 12/12/22
ezetimibe 10 mg tablet 10 mg PO DAILY High Cholesterol 12/12/22
sodium bicarbonate 650 mg tablet 1,950 mg PO BID Electrolyte Repletion 12/12/22
tamsulosin 0.4 mg capsule 0.4 mg PO BID Urinary Issue 12/12/22
vitamin B complex and vitamin C no.20-folic acid 1 mg capsule 1 cap PO DAILY Supplement 12/12/22
atorvastatin 10 mg tablet 10 mg PO HS #30 tabs 12/15/22
finasteride 5 mg tablet 5 mg PO DAILY #30 tabs 12/15/22
Patient Own Insulin Pump 0 unit SC .VIA NOVOLOG Diabetes 07/04/24
ascorbic acid (vitamin C) 500 mg tablet (Vitamin C) 500 mg PO BID Supplement 07/04/24
calcium polycarbophil 625 mg tablet (FiberCon) 625 mg PO QPM Gastrointestinal Issue 07/04/24
cholecalciferol (vitamin D3) 25 mcg (1,000 unit) tablet (Vitamin D3) 25 mcg PO DAILY Supplement 07/04/24
oxycodone 5 mg tablet 5 mg PO DAILY PRN Pain 07/04/24
acetaminophen 500 mg tablet 1,000 mg PO DAILYPRN PRN mild pain 08/23/24
amlodipine 5 mg tablet 5 mg PO DAILY 06/06/25
apixaban 2.5 mg tablet (Eliquis) 2.5 mg PO BID 06/06/25
diazepam 5 mg tablet 5 mg PO DAILY PRN anxiety 06/06/25
nebivolol 10 mg tablet 10 mg PO DAILY 06/06/25
omeprazole 40 mg capsule,delayed release 40 mg PO DAILY 06/06/25
torsemide 20 mg tablet 40 mg PO .EVERYOTHERDAY 06/06/25
trazodone 50 mg tablet 50 mg PO HS 06/06/25
Review of Systems
-
History Source: Patient and Family
A 12 point ROS was completed and negative except as noted: Yes
Constitutional: Reports Fatigue; Denies Fever or Chills
EENT: Denies Sore Throat
Respiratory: Reports Trouble Breathing; Denies Cough
Cardiac: Denies Chest Pain or Palpitations
Abdomen/GI: Reports Other (Abdominal fullness / distention.); Denies Abdominal Pain, Nausea, Vomiting, Diarrhea, Bloody Stools or Black Stools
: Denies Dysuria, Frequency or Flank Pain
Musculoskeletal: Reports Edema; Denies Joint Pain
Neurological: Denies Dizzy or Headache
Physical Exam
Vital Signs
Vital Signs
Temp Pulse Resp BP Pulse Ox
97.7 F 61 22 145/73 93
06/06/25 16:03 06/06/25 19:24 06/06/25 18:26 06/06/25 19:24 06/06/25 18:30
Physical Exam
General: Other (75y M in no acute distress.)
HEENT: Moist mucous membranes, PERRLA and Other (Pos JVD / HJR.)
Respiratory: Other (Decreased at bases with rales about 1/2 up.)
Cardiac: S1/S2 and Regular Rhythm; No Murmur
GI: Soft, Non Tender, Non Distended and Normal Bowel Sounds
Musculoskeletal: No Clubbing, No Cyanosis and Other (1-2+ pitting edema b/l LEs.)
Neuro: AO x 3
Hematologic/Lymphatic: Other (RUE AVF site intact without bleeding / discharge.)
Laboratory Results
-
06/06/25 16:48
06/06/25 16:48
Laboratory Results
PT 16.5 Sec (11.4-14.6) H 06/06/25 16:48
INR 1.28 06/06/25 16:48
APTT 40.0 Sec (23.4-35.0) H 06/06/25 16:48
Total Bilirubin 0.5 mg/dl (0.2-1.3) 06/06/25 16:48
AST 16 U/L (17-59) L 06/06/25 16:48
ALT 10 U/L (0-50) 06/06/25 16:48
Alkaline Phosphatase 124 U/L (38-126) 06/06/25 16:48
Troponin I 0.024 ng/ml 06/06/25 16:48
Impression/Plan
-
A/P: Patient is a 75y M with PMH significant for CKD V, HTN and DM-I who presents to ED complaining of shortness of breath.
ESRD - New
Pulmonary Edema secondary to the above
Acute Hypoxemic Respiratory Failure secondary to the above
- Admit for further evaluation and treatment.
- SCr = 10 compared to 6 five months ago.
- Was planning to begin HD in the next month with his physician at [place] (Dr. Derek Zuleta).
- Evidence of volume overload on exam and by CXR.
- IV Lasix x 1 dose given in the ED.
- Plan for HD cath placement and dialysis administration in the AM.
- Nephrology and IR consulted.
- Follow for clinical improvement.
- Has RUE AVF - but not yet mature / ready for use.
- Supportive care / O2 supplementation as needed.
- Check Echo.
Bilateral LE DVT
Possible PE
- US done today shows acute and chronic bilateral LE thromboses.
- Patient has been on Eliquis for known DVT - taking 2.5mg BID dose.
- IV heparin for now given need for catheter placement, HD, etc.
- Echo as noted above to assess for R sided pressures, etc.
- Could resume Eliquis prior to discharge - 5mg BID dosing for DVT treatment.
DM-I
- Stable. At present.
- Continue home insulin pump.
- DM LICENSED PHYSICAL THERAPIST ASSISTANT consulted for insulin management / recommendations.
- Update A1C.
Benign Hypertension
- Stable. Continue current BP medications for now with holding parameters.
- Adjust as needed as patient begins HD.
Anemia of CKD
- Stable / increased from prior baseline.
- Follow for changes in H&H.
- Monitor for any evidence of active bleeding on heparin.
BPH
- Stable. Continue current BPH med regimen.
Code Status: DNR
[2025-06-06] MEDS: HEPARIN 7300 UNITS IV (19:30)
[2025-06-06] MEDS: HEPARIN 25000 UNITS/250 ML IV (19:30)
[2025-06-06 21:17] LABS: Glucose - Point of Care 102 mg/dl (70-99)
[2025-06-06] MEDS: DESYREL 50 MG PO (22:11)
[2025-06-06] MEDS: SODIUM BICARBONATE 1950 MG PO (22:11)
[2025-06-06] MEDS: FLOMAX 0.4 MG PO (22:11)
[2025-06-06] MEDS: LIPITOR 10 MG PO (22:11)
[2025-06-06] MEDS: PHOSLO 1334 MG PO (22:11)
[2025-06-06] MEDS: PT'S OWN INSULIN PUMP - NovoLOG 3 UNIT SC (22:39)
--- NOTE | 2025-06-06 23:15 | PTCARENOTE ---
Patient received from ED with and daughter. Pt is pleasant, comfortable, and oriented x3. Call rodriguez within reach, bed alarm is working.
[2025-06-07] VITALS (10 sets, daily range): BP systolic 62–164; BP diastolic 49–74; BMI 28.5
[2025-06-07 02:10] LABS: APTT 160.5 Sec (23.4-35.0)
[2025-06-07 05:52] LABS: Glucose - Point of Care 108 mg/dl (70-99)
[2025-06-07] MEDS: PHOSLO 1334 MG PO (07:35)
[2025-06-07] MEDS: FLOMAX 0.4 MG PO (07:35)
[2025-06-07] MEDS: SODIUM BICARBONATE 1950 MG PO (07:35)
[2025-06-07] MEDS: LOPRESSOR 50 MG PO (07:36)
[2025-06-07] MEDS: NORVASC 5 MG PO (07:36)
[2025-06-07] MEDS: PROSCAR 5 MG PO (07:36)
--- NOTE | 2025-06-07 08:17 | W.CON.NEPH ---
Consultation
-
Date/Time Consultation Requested: 06/06/2025 6:30 PM
Date/Time Consultation Performed: 06/07/2025 8:15 AM
Requesting Provider: Dr. Barber
Performing Provider: Dr. Bee
Reason for Consultation: Chronic kidney disease stage V
Medical History
-
Chief Complaint: RAJ/CKD 5
History of Present Illness:
75yo M with PMHx of neurosacoidosis on Cellcept, HAM MARKER shunt, CKD stage 5 last cr 5.9 (Nov 27 2024) follows Dr Yo at [facility] failed AVF in the past, now with newly placed AV fistula (2 weeks prior) ,chronic metabolic acidosis on sodium bicarbonate,
hyperphosphatemia on Calcium acetate, on Eliquis due to bilateral DVTs, insulin-dependent DM type 1 For 64 years, has microvascular complications neuropathy, nephropathy , HLD, BPH on Flomax, chronic prostatitis, Hx of DVT UE and LE on Eliquis,
recurrent severe anemia on high dose outpatient Epo came into hospital with increasing shortness of breath and edema.
Past Medical History
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
HAM MARKER shunt,
CKD stage 5 last cr 5.9,
chronic metabolic acidosis
hyperphosphatemia o
IDDM
HLD,
BPH
chronic prostatitis
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
anemia
Failed left upper extremity fistula
Past Surgical History: Other (VPshunt and TKR)
Social History
Tobacco: Non-Smoker
Alcohol: None
Drug: None
Personal:
Living: With Family
Employment: Retired
Family History
father with colon cancer in 80s
Family History: Not Pertinent
Allergies / Home Medications
Allergy/AdvReac Type Severity Reaction Status Date / Time
No Known Allergies Allergy Verified 06/06/25 16:03
�Medication �Instructions �Recorded �Confirmed �Type
calcium acetate 667 mg tablet 1,334 mg PO TID Kidney Disease 12/12/22 06/06/25 History
ezetimibe 10 mg tablet 10 mg PO DAILY High Cholesterol 12/12/22 06/06/25 History
sodium bicarbonate 650 mg tablet 1,950 mg PO BID Electrolyte 12/12/22 06/06/25 History
Repletion
tamsulosin 0.4 mg capsule 0.4 mg PO BID Urinary Issue 12/12/22 06/06/25 History
vitamin B complex and vitamin C 1 cap PO DAILY Supplement 12/12/22 06/06/25 History
no.20-folic acid 1 mg capsule
atorvastatin 10 mg tablet 10 mg PO HS #30 tabs 12/15/22 06/06/25 Rx
finasteride 5 mg tablet 5 mg PO DAILY #30 tabs 12/15/22 06/06/25 Rx
Patient Own Insulin Pump 0 unit SC .VIA NOVOLOG Diabetes 07/04/24 06/06/25 History
ascorbic acid (vitamin C) 500 mg 500 mg PO BID Supplement 07/04/24 06/06/25 History
tablet (Vitamin C)
calcium polycarbophil 625 mg 625 mg PO QPM Gastrointestinal 07/04/24 06/06/25 History
tablet (FiberCon) Issue
cholecalciferol (vitamin D3) 25 25 mcg PO DAILY Supplement 07/04/24 06/06/25 History
mcg (1,000 unit) tablet (Vitamin
D3)
oxycodone 5 mg tablet 5 mg PO DAILY PRN Pain 07/04/24 06/06/25 History
acetaminophen 500 mg tablet 1,000 mg PO DAILYPRN PRN mild pain 08/23/24 06/06/25 History
amlodipine 5 mg tablet 5 mg PO DAILY 06/06/25 06/06/25 History
apixaban 2.5 mg tablet (Eliquis) 2.5 mg PO BID 06/06/25 06/06/25 History
diazepam 5 mg tablet 5 mg PO DAILY PRN anxiety 06/06/25 06/06/25 History
nebivolol 10 mg tablet 10 mg PO DAILY 06/06/25 06/06/25 History
omeprazole 40 mg capsule,delayed 40 mg PO DAILY 06/06/25 06/06/25 History
release
torsemide 20 mg tablet 40 mg PO .EVERYOTHERDAY 06/06/25 06/06/25 History
trazodone 50 mg tablet 50 mg PO HS 06/06/25 06/06/25 History
Review of Systems
-
History Source: Patient
All other systems: Negative unless noted
Respiratory: Trouble Breathing
Musculoskeletal: Edema
Physical Exam
Vital Signs
Vital Signs
Temp Pulse Resp BP Pulse Ox
98.1 F 60 20 115/49 91
06/07/25 03:00 06/07/25 03:00 06/07/25 03:00 06/07/25 03:00 06/07/25 03:00
Lab Results
eGFR 4.95 06/06/25 16:48
Dht-X-Fnslgusiejb Pept 00985 pg/ml 06/06/25 16:48
Physical Exam
General: AOx3, Nontoxic , NAD
HEENT: PERRL, EOMI, Anicteric, Conjunctivae Clear, Ear/Nose Intact, Hearing Normal, Oropharynx Clear/Moist, Dentition Intact, Facial Symmetry, Neck Supple, Neck: Trachea Midline, No JVD and No Thyromegaly, no Bruits
Respiratory: Crackles bilaterally with normal lung excursion
Cardiac: S1/S2 and Regular Rate/Rhythm
Breast: Deferred by me
Abdomen: Soft, Nontender, Nondistended, Normal Bowel Sounds and No Hepatosplenomegaly
Rectal: Deferred by Provider
Genito-urinary: No Costovertebral Tenderness
Extremities: No Clubbing, No Cyanosis but Noted pitting Edema
Skin: No Rash or open lesions
Neuro: Nonfocal/Grossly Intact, CN II-XII (Intact) and Strength (Musculoskeletal exam 5 out of 5 both upper and lower extremities)
Hematologic/Lymphatic: No Cervical Lymphadenopathy, No Submandibular Lymphadenopathy and No Supraclavicular Lymphadenopathy
Psych: Mood/affect pleasant, Insight/judgement good and Appropriate
Vascular: plus 1 pedal and radial pulses
Vascular Access: AVF (Right upper extremity brachiocephalic first stage fistula good thrill and bruit)
Data Reviewed
-
Radiology: Image Personally Visualized and interpreted (Chest x-ray personally reviewed from admission notes bilateral interstitial edema consistent with congestive heart)
Labs: Labs Reviewed by me (BMP CBC)
Old Records: Reviewed (Reviewed previous nephrology consultation from August 2024 for CKD stage V when creatinine was 5.9,)
Assessment/Plan
-
IMP:
Presentation with shortness of breath and increasing edema
anemia of chronic disease
CKD stage 5 now with RAJ (10)
chronic metabolic acidosis
hyperphosphatemia
IDDM 1 with nephropathy
HLD,
BPH
chronic prostatitis
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
HAM MARKER shunt,
AV fistula
Plan:
- AV fistula still too immature at 2 weeks to be utilized henceforth IR will place tunneled catheter
-Dialysis will be initiated today and through the weekend as patient now with acute on chronic renal failure with symptomatic volume overload
-LEN support will be provided for anemia of chronic kidney disease
-Patient hemodynamically stable on current antihypertensives
[2025-06-07 09:20] LABS: APTT 50.4 Sec (23.4-35.0)
--- NOTE | 2025-06-07 09:21 | PN.DE.MGMTRT ---
Insulin Management
- -
06/07/2025: Diabetes management consult for insulin pump management.
75 year old male admitted with breathing problem - pulmonary edema, acute on chronic renal failure with symptomatic volume overload. PMH: Chronic DVT, Neurosarcoidosis, Chronic prostatitis, BPH, HLD and T1DM x 55 years and has been using an insulin
pump for over 25 yrs. He routinely follows up with his Chipper Machine Operator Dr. Hunt at [place]. A1C Pending, Cr 10, eGFR 4.95.
He is currently using the Tandem T-Slim with NovoLog insulin and has a [employer] G6 glucose monitor. His glucose is stable and in range. FBG 108 this AM.
Pump settings are as follows:
Basal ICR ICF Target
12am 0.1 1:20 1:90 110
3am 0.4 1:20 1:90 110
6am 0.4 1:20 1:90 110
10am 0.6 1:20 1:90 110
7pm 0.6 1:20 1:90 110
24 hour basal total 11.5 units
Active insulin 3 hours
Will make no changes to current pump settings.
Patient is awake alert and oriented, able to discuss diabetes care. He is NPO t his AM for procedure in IR for tunnelled catheter for dialysis
Discussed with Nurse.
Will follow
Diabetes History
- -
Type of Diabetes: 1
Pre-Admission Diabetes Regimen
06/06/25
16:48
Creatinine 10.0 H*
Insulin Pump Settings
IP Diabetes Regimen
06/06/25 06/06/25 06/07/25
16:48 21:16 05:49
Glucose 120 H
POC Glucose 102 H 108 H
Patient Education
[2025-06-07 09:46] LABS: Glucose - Point of Care 97 mg/dl (70-99)
[2025-06-07] MEDS: ANCEF 10 IV (10:01)
--- NOTE | 2025-06-07 11:50 | CM ---
Addendum entered by Mickey Rodriguez 06/07/25 14:22:
Received call from Sary/[facility] in receipt of referral. Confirmed patient's spouse has preference for MWF evening chair time. Per Sary she does not see MWF evening time on her end but will escalate this to the [facility] location
to inquire about the requesting schedule time. Sary stated she's not sure if she'll hear back today and that Tuesday likely a chair time can be determined once Hep B, catheter report and HD flow sheets are submitted.
Addendum entered by Mickey Rodriguez 06/07/25 13:19:
CM reviewed OP HD needs w/ spouse for patient. Spouse stated she prefers [facility] ([address], [place]) location. Schedule preference MWF in the evening but understands chair time preference is not always guaranteed. Spouse inquiring
about transportation for patient to HD, she understands that HD center will not provide transportation. CM asked if aide can assist w/ transportation, spouse stated that is possible but may have to pay additional funds. CM offered [facility]
Transport application and info, spouse agreeable for future planning.
CM faxed available clinicals and [facility] admission sheet to [facility] ([phone]), [facility].
Hep B panel and tunnel cath report pending at this time. CM will fax once available, along w/ HD flow sheet as patient has not received HD yet today.
Original Note:
Patient off the floor for HD tunnel cath placement. Spouse at bedside, initial assessment completed. Patient is a 75y M with PMH significant for CKD V, hypertension, DM-I and neurosarcoidosis who presents to ED complaining of SOB.
Patient resides w/ spouse in a 2STH, 2 steps to enter. Patient has 1st floor bedroom and bathroom. Patient ambulates w/ RW, assisted w/ showers by aide (5 days/week, 6 hours). Spouse works real time analyst from home. OP PT hx, home care hx. [facility] in 2021.
Address, point of contact and insurance verified
PCP: Jay Jaimes
Pharmacy: [facility]
Patient to start HD today. Tunnel cath placement today. Confirmed w/ director of premium seat sales patient will need OP HD
Plan: Home w/ OP HD
[2025-06-07 12:05] LABS: Glucose - Point of Care 111 mg/dl (70-99)
--- NOTE | 2025-06-07 12:13 | W.PN.UPDATE ---
Update Note
Progress Note Update
Right IJ accessed, could not pass wire. Venogram showed venous occlusion. Left IJ was accessed and also occluded centrally.
Placed right femoral tunneled catheter. OK to use now, should be removed as soon as the fistula is successfully used for dialysis due to higher infection risk.
D/W patient and his .
[2025-06-07 13:03] LABS: Glucose - Point of Care 106 mg/dl (70-99)
[2025-06-07 13:38] LABS: Hematocrit 31.6 % (39.0-52.0); Hemoglobin 9.3 g/dL (13.0-18.0); Mean Corp Hgb Conc. 29.4 g/dL (33.0-37.0); Mean Corpuscular Volume 94.9 fL (80.0-94.0); Platelet Count 178 10^3/uL (130-400); Red Cell Dist. Width 15.4 % (11.5-14.5)
[2025-06-07] MEDS: MANNITOL 25% 12.5 GRAMS IV ×2 (13:39→14:36)
[2025-06-07] MEDS: FLEXBUMIN 25% FOR HEMODIALYSIS 12.5 GRAMS IV (13:50)
--- NOTE | 2025-06-07 13:58 | W.PN.HOSP.TC ---
Today's Communication/Plan
-
HD today
LEN
Assessment / Plan
Assessment / Plan
Physical Exam
General: Other (75y M in no acute distress.)
HEENT: Moist mucous membranes, PERRLA and Other (Pos JVD / HJR.)
Respiratory: Other (Decreased at bases with rales about 1/2 up.)
Cardiac: S1/S2 and Regular Rhythm; No Murmur
GI: Soft, Non Tender, Non Distended and Normal Bowel Sounds
Musculoskeletal: No Clubbing, No Cyanosis and Other (1-2+ pitting edema b/l LEs.)
Neuro: AO x 3
Hematologic/Lymphatic: Other (RUE AVF site intact without bleeding / discharge.)
A/P: Patient is a 75y M with PMH significant for CKD V, HTN and DM-I who presents to ED complaining of shortness of breath.
ESRD - New
Pulmonary Edema secondary to the above
Non Cardiogenic Pulmonary Edema
Acute Hypoxemic Respiratory Failure secondary to the above
- Admit for further evaluation and treatment.
- SCr = 10 compared to 6 five months ago.
- Was planning to begin HD in the next month with his physician at [place] (Dr. Derek Zuleta).
- Evidence of volume overload on exam and by CXR.
- IV Lasix x 1 dose given in the ED.
- Plan for HD cath placement and dialysis administration 06/07
- Nephrology and IR consulted.
- Follow for clinical improvement.
- Has RUE AVF - but not yet mature / ready for use.
- Supportive care / O2 supplementation as needed.
- Check Echo.
#Anemia of CKD
-LEN
Bilateral LE DVT
Possible PE
- US done shows acute and chronic bilateral LE thromboses.
- Patient has been on Eliquis for known DVT - taking 2.5mg BID dose.
- IV heparin for now given need for catheter placement, HD, etc.
- Echo as noted above to assess for R sided pressures, etc.
- Could resume Eliquis prior to discharge - 5mg BID dosing for DVT treatment.
DM-I
- Stable. At present.
- Continue home insulin pump.
- DM GROUNDMAN consulted for insulin management / recommendations.
- Update A1C.
Benign Hypertension
- Stable. Continue current BP medications for now with holding parameters.
- Adjust as needed as patient begins HD.
Anemia of CKD
- Stable / increased from prior baseline.
- Follow for changes in H&H.
- Monitor for any evidence of active bleeding on heparin.
BPH
- Stable. Continue current BPH med regimen.
Code Status: DNR
Anticipated Discharge: 24 - 48 hours
Subjective/Interval History
-
Date of Service: June 07, 2025
No acute events overnight
Objective Data
-
Labs:
Laboratory Results
06/07/25 06/07/25 06/07/25
01:45 09:01 13:16
WBC 7.8
Hgb 9.3 L
Hct 31.6 L
Plt Count 178
APTT 160.5 H* 50.4 H
Sodium Pending
Potassium Pending
Chloride Pending
Carbon Dioxide Pending
BUN Pending
Creatinine Pending
Glucose Pending
Calcium Pending
Total Bilirubin Pending
AST Pending
ALT Pending
Alkaline Phosphatase Pending
06/07/25
19:00
WBC
Hgb
Hct
Plt Count
APTT Pending
Sodium
Potassium
Chloride
Carbon Dioxide
BUN
Creatinine
Glucose
Calcium
Total Bilirubin
AST
ALT
Alkaline Phosphatase
Vital Signs:
Vital Signs
Temp Pulse Resp BP Pulse Ox
98.1 F 62 14 133/65 95
06/07/25 12:22 06/07/25 12:40 06/07/25 12:40 06/07/25 12:40 06/07/25 12:40
I&O
06/06/25 06/07/25 06/08/25
06:59 06:59 06:59
Output Total 700 / 700
Balance -700 / -700
Review of Systems
-
History Source: Patient
All other systems: Reviewed and negative
Physical Exam
-
General: No Apparent Distress
HEENT: Normocephalic
Cardiac: Regular Rhythm
GI: Soft, Nontender and Nondistended
Skin: Warm
Neuro: Awake, Alert, Oriented and AO x 3
Psych: Calm
Data Reviewed
-
Diagnostic Radiology: Report Reviewed by me
Ultrasound: Report Reviewed by me
Labs: Labs Reviewed by me
--- NOTE | 2025-06-07 14:10 | W.PN.NEPH.HD ---
Assessment
-
Patient seen on dialysis
Ultrafiltration goal reduced as blood pressure dropped at 2 kg UF
Mannitol x 2 provided for disequilibrium prophylaxis
Obtain hepatitis serologies
Next dialysis will be tomorrow
Progress Note - Hemodialysis
-
Date of Service: June 07, 2025
Duration: 15 minutes and 2 hours
Potassium Bath: 3
Calcium Bath: 2.5
Opti-Dialyzer: 160
Ultrafiltration: Other (1.5 to 2kg)
Blood Flow: 250
Dialysate Flow: 600
Heparin: none
EPO: none
[2025-06-07 14:18] LABS: Glycohemoglobin (HgbA1c) 6.3 % (4.0-5.9)
[2025-06-07 15:13] LABS: Hepatitis B Surface Antigen Negative (Negative)
[2025-06-07 15:32] LABS: Hepatitis C Antibody Negative (Negative)
--- NOTE | 2025-06-07 15:34 | WOUNDNOTE ---
WON RN note: Patient admitted with chronic kidney disease and DVT's.
See H&P for complete history. Lives with at home.
PMH: IDDM, V-P Shunt, brain lesion, B/L knee replacements, UTI and L heel stage 3 PI.
Wound Location and type/assessment: Patient last seen 12/14/22 for L heel stage 3 PI. Now dry callus, no drainage. Recently went to see Dr. Barrios at [facility] and confirmed healed. Patient unable to turn at this time, getting dialysis. TruVue
lite offloading heel boot not worn at home states . He has a fiber filled boot but said her does not like to wear it. R heel is intact. Pillow in use under calves.
Appetite: Good.
Pressure redistribution devices in place: On versa care air bed. turns self and ambulates self states .
Plan:Silicone foam applied to L heel and fiber filled boot. Can take boot home upon discharge. Strongly encouraged patient to wear boot when in bed, states he understands. Will confirm orders with hospitalist and updated nurse Walker. Updated care
plan and will follow as needed.
[2025-06-07] MEDS: PHOSLO PO ×2 (15:39→18:50)
--- NOTE | 2025-06-07 16:24 | PN.CDI ---
CDI
- -
CDI:
Physician Documentation Request
Admit Date: 06/06/25 19:43
Dear Doctor Jensen,
Clinical Indicators:
Patient admitted with pulmonary edema and acute hypoxic respiratory failure.
06/06 CXR report, 'There is diffuse prominence of the interstitial markings which is new.'
06/07 PN, 'Non Cardiogenic Pulmonary Edema'
Please clarify which of the following accurately represents the acuity of the non cardiogenic pulmonary edema:
Acute non cardiogenic pulmonary edema
Chronic non cardiogenic pulmonary edema
Other, please specify
Use of terms such as suspected, likely, concern for, or probable (associated with a specific diagnosis that is being evaluated, monitored, or treated as if it exists) are acceptable and can be coded in the inpatient setting, when documented at the
time of discharge.
Thank you,
LEONARDA Muller RN
CDI Specialist
available via tiger text
Please use your independent medical judgment in providing your response.
[2025-06-07 16:25] LABS: ALT (SGPT) 12 U/L (0-50); AST (SGOT) 18 U/L (17-59); Albumin 3.5 g/dl (3.5-5.0); Alkaline Phosphatase 113 U/L (38-126); Calcium 8.6 mg/dl (8.4-10.2); Carbon Dioxide 24 mmol/L (22-30); Chloride 101 mmol/L (98-107); Estimated Creatinine Clearance 7 ml/min; Glucose 75 mg/dl (70-99); HDL Cholesterol 63 mg/dl; LDL Cholesterol, Calculated 21 mg/dl; Magnesium 3.4 mg/dl (1.6-2.3); Potassium 5.4 mmol/L (3.5-5.1); Sodium 134 mmol/L (135-145); Total Protein 6.5 g/dl (6.3-8.2); Very Low Density Lipoprotein 12 mg/dl (0-30); eGFR 5.01
[2025-06-07 16:27] LABS: Glucose - Point of Care 65 mg/dl (70-99)
[2025-06-07 16:46] LABS: Blood Urea Nitrogen 146 mg/dl (9-20)
[2025-06-07 16:49] LABS: Glucose - Point of Care 71 mg/dl (70-99)
[2025-06-07 18:43] LABS: Glucose - Point of Care 128 mg/dl (70-99)
[2025-06-07 19:02] LABS: APTT 56.9 Sec (23.4-35.0)
[2025-06-07] MEDS: HEPARIN 7300 UNITS IV (19:41)
[2025-06-07] MEDS: HEPARIN 25000 UNITS/250 ML IV (19:45)
[2025-06-07 20:48] LABS: Glucose - Point of Care 103 mg/dl (70-99)
[2025-06-07] MEDS: LOPRESSOR PO (21:30)
[2025-06-07] MEDS: FLOMAX PO ×2 (22:20→22:46)
[2025-06-07] MEDS: DESYREL PO ×2 (22:20→22:47)
[2025-06-07] MEDS: LIPITOR PO ×2 (22:20→22:47)
[2025-06-07] MEDS: SODIUM BICARBONATE PO ×2 (22:21→22:46)
[2025-06-07 22:34] LABS: Glucose - Point of Care 78 mg/dl (70-99)
--- NOTE | 2025-06-07 22:45 | PTCARENOTE ---
Patient refusing to tell me his name & . Made up a few silly fake names, but when I attempted to have him be serious to confirm prior to med administration, he says 'I forget it' and he just wants to go to sleep. When asked when his last BM was,
he said last year. I went in again and he's would not provide his information. Explained several times that he can go back to sleep as soon as he takes his meds. According to patient notes, he does not appear to have hx of cognitive impairment. PORT PURSER
made aware via TT and requested finger stick glucose. Result was 78 at 2230. He said he did not give himself insulin through his pump. He was agreeable to drink half of the apple juice, then said he wanted to go back to sleep. He denied any changes
in his vision. He has been in bed sleeping the entire shift thus far. He said that he is more tired than usual. At approx 2240, he did tell him his , but refused his medications. Asked if he would just take the Sodium Bicarb, and he said no. PORT PURSER
made aware.
[2025-06-08 02:48] LABS: Glucose - Point of Care 125 mg/dl (70-99)
[2025-06-08 03:00] VITALS: BP 173/71
[2025-06-08 03:52] LABS: APTT 188.9 Sec (23.4-35.0)
[2025-06-08] MEDS: DUONEB 3 ML INH (04:16)
--- NOTE | 2025-06-08 04:55 | PTCARENOTE ---
Patient woke up around 3AM, much more pleasant and cooperative. Requested neb treatment for SOB. Lung diminished w/ exp. wheezing. Currently on 6L of Oxygen. SPEECH AND LANGUAGE CLINICIAN ordered one time neb treatment, given at 0415. Patient observed sleeping upon follow up.
[2025-06-08 06:20] VITALS: BMI 28.0
[2025-06-08 07:58] VITALS: BP 174/72
[2025-06-08 08:18] LABS: Glucose - Point of Care 131 mg/dl (70-99)
[2025-06-08] MEDS: PHOSLO 1334 MG PO ×3 (08:51→17:08)
[2025-06-08] MEDS: SODIUM BICARBONATE 1950 MG PO (08:52)
[2025-06-08] MEDS: FLOMAX 0.4 MG PO ×2 (08:52→20:14)
[2025-06-08] MEDS: PROSCAR 5 MG PO (08:52)
[2025-06-08] MEDS: NORVASC 5 MG PO (08:52)
[2025-06-08] MEDS: LOPRESSOR 50 MG PO ×2 (08:52→20:18)
[2025-06-08 11:03] LABS: Hematocrit 31.3 % (39.0-52.0); Hemoglobin 9.6 g/dL (13.0-18.0); Mean Corp Hgb Conc. 30.7 g/dL (33.0-37.0); Mean Corpuscular Volume 91.8 fL (80.0-94.0); Platelet Count 143 10^3/uL (130-400); Red Cell Dist. Width 15.2 % (11.5-14.5)
[2025-06-08 11:15] LABS: APTT 55.6 Sec (23.4-35.0)
[2025-06-08] MEDS: HEPARIN 7300 UNITS IV (11:40)
[2025-06-08 11:47] VITALS: BP 115/52
[2025-06-08 11:58] LABS: Glucose - Point of Care 134 mg/dl (70-99)
--- NOTE | 2025-06-08 12:36 | W.PN.HOSP.TC ---
Addendum entered and electronically signed by Anival Styles MD 06/08/25 14:59:
Acute non cardiogenic pulmonary edema
Addendum entered and electronically signed by Anival Styles MD 06/08/25 14:01:
Loculated Right Pleural Effusion - Needs close f/u, imaging;
Original Note:
Today's Communication/Plan
-
HD
wean O2
Assessment / Plan
Assessment / Plan
Physical Exam
General: Other (75y M in no acute distress.)
HEENT: Moist mucous membranes, PERRLA and Other (Pos JVD / HJR.)
Respiratory: Other (Decreased at bases with rales about 1/2 up.)
Cardiac: S1/S2 and Regular Rhythm; No Murmur
GI: Soft, Non Tender, Non Distended and Normal Bowel Sounds
Musculoskeletal: No Clubbing, No Cyanosis and Other (1-2+ pitting edema b/l LEs.)
Neuro: AO x 3
Hematologic/Lymphatic: Other (RUE AVF site intact without bleeding / discharge.)
A/P: Patient is a 75y M with PMH significant for CKD V, HTN and DM-I who presents to ED complaining of shortness of breath.
ESRD - New
Pulmonary Edema secondary to the above
Non Cardiogenic Pulmonary Edema
Acute Hypoxemic Respiratory Failure secondary to the above
- SCr = 10 compared to 6 five months ago.
- Was planning to begin HD in the next month with his physician at [place] (Dr. Derek Zuleta).
- Evidence of volume overload on exam and by CXR.
- IV Lasix x 1 dose given in the ED.
- HD cath placement and dialysis administration starting 06/07
- Placed right femoral tunneled catheter (IJ could not be accessed due to occlusion). OK to use now, should be removed as soon as the fistula is successfully used for dialysis due to higher infection risk
- Nephrology and IR consulted.
- Follow for clinical improvement.
- Has RUE AVF - but not yet mature / ready for use.
- Supportive care / O2 supplementation as needed.
Bilateral LE DVT
Possible PE
- US done shows acute and chronic bilateral LE thromboses.
- Patient has been on Eliquis for known DVT - taking 2.5mg BID dose.
- IV heparin for now given need for catheter placement, HD, etc.
- Echo as noted above to assess for R sided pressures, etc.
- Could resume Eliquis prior to discharge - 5mg BID dosing for DVT treatment.
#Acute Hypoxic Respiratory Failure
-2/2 to noncardiogenic pulmonary edema
-resolved s/p HD
DM-I
- Stable. At present.
- Continue home insulin pump.
- DM VARNISH INSPECTOR consulted for insulin management / recommendations.
- HgbA1C - 6.3
Benign Hypertension
- Stable. Continue current BP medications for now with holding parameters.
- Adjust as needed as patient begins HD.
Anemia of CKD
- Stable / increased from prior baseline.
- Follow for changes in H&H.
- Monitor for any evidence of active bleeding on heparin.
-LEN
BPH
- Stable. Continue current BPH med regimen.
Code Status: DNR
Anticipated Discharge: 24 - 48 hours
Subjective/Interval History
-
Date of Service: June 08, 2025
No acute events overnight, patient states his respiratory status has improved
Objective Data
-
Labs:
Laboratory Results
06/08/25 06/08/25 06/08/25
03:00 10:42 17:45
WBC 6.1
Hgb 9.6 L
Hct 31.3 L
Plt Count 143
APTT 188.9 H* 55.6 H Pending
Vital Signs:
Vital Signs
Temp Pulse Resp BP Pulse Ox
97.6 F 60 20 115/52 95
06/08/25 11:47 06/08/25 11:47 06/08/25 11:47 06/08/25 11:47 06/08/25 11:47
I&O
06/07/25 06/08/25 06/09/25
06:59 06:59 06:59
Intake Total 270 / 270
Output Total 700 / 700 1000 / 1000
Balance -700 / -700 -730 / -730
Review of Systems
-
History Source: Patient
All other systems: Reviewed and negative
Data Reviewed
-
Diagnostic Radiology: Report Reviewed by me
Ultrasound: Report Reviewed by me
Labs: Labs Reviewed by me
[2025-06-08] MEDS: MANNITOL 25% 12.5 GRAMS IV ×2 (13:40→14:32)
[2025-06-08] MEDS: HEPARIN 25000 UNITS/250 ML IV (13:59)
--- NOTE | 2025-06-08 14:10 | W.PN.NEPH.HD ---
Assessment
-
Patient seen on dialysis
Breathing improving
Goal will be for UF of 2 kg today is systolic blood pressure stable at 140
Dialysis via tunneled catheter as IJ access could not be obtained by IR (bilateral IJ occlusion per IR report)
AV fistula maturing
Next dialysis will be Tuesday
Case management in process of obtaining outpatient dialysis unit
Progress Note - Hemodialysis
-
Date of Service: June 08, 2025
Duration: 45 minutes and 2 hours
Potassium Bath: 2
Calcium Bath: 2.5
Opti-Dialyzer: 160
Ultrafiltration: Other (2kg)
Blood Flow: 300
Dialysate Flow: 600
Heparin: none
EPO: none
[2025-06-08] MEDS: RETACRIT 4000 UNITS IV (14:51)
[2025-06-08 15:30] VITALS: BP 136/55
[2025-06-08] MEDS: HEPARIN 4300 UNITS INTRACATH (15:50)
[2025-06-08 16:50] LABS: Glucose - Point of Care 149 mg/dl (70-99)
[2025-06-08 18:54] LABS: APTT > 200 Sec (23.4-35.0)
[2025-06-08 19:30] VITALS: BP 151/60
[2025-06-08] MEDS: MIRALAX 17 GRAMS PO (20:13)
[2025-06-08] MEDS: LIPITOR 10 MG PO (20:14)
[2025-06-08] MEDS: DESYREL 50 MG PO (20:42)
[2025-06-08 22:06] LABS: Glucose - Point of Care 111 mg/dl (70-99)
[2025-06-08 23:16] VITALS: BP 153/55
[2025-06-09] VITALS (7 sets, daily range): BP systolic 136–155; BP diastolic 51–63; PULSE 56; O2SAT 93; BMI 27.1
[2025-06-09] MEDS: DULCOLAX 10 MG RECTAL (02:00)
--- NOTE | 2025-06-09 02:15 | PTCARENOTE ---
Patient reported feeling constipated. Last BM was 06/08 at 0300. PRN Miralax given at 2014. Assisted patient to commode 2-3 times, but he was unable to have BM. Patient continued to feel like he needed to go. Put bed gaytan in place approx 10 times
through out shift, but still not able to have BM. Positive BS in all 4 quadrants. One time dose of Dulcolax rectal suppository given at approx 0210.
[2025-06-09 04:09] LABS: APTT 25.8 Sec (23.4-35.0)
[2025-06-09 07:35] LABS: Glucose - Point of Care 98 mg/dl (70-99)
[2025-06-09] MEDS: NORVASC 5 MG PO (09:04)
[2025-06-09] MEDS: PHOSLO 1334 MG PO ×3 (09:04→17:07)
[2025-06-09] MEDS: FLOMAX 0.4 MG PO ×2 (09:04→19:53)
[2025-06-09] MEDS: PROSCAR 5 MG PO (09:04)
[2025-06-09] MEDS: LOPRESSOR 50 MG PO ×2 (09:04→19:54)
[2025-06-09] MEDS: HEPARIN 25000 UNITS/250 ML IV (10:26)
[2025-06-09 11:14] LABS: Hematocrit 31.9 % (39.0-52.0); Hemoglobin 9.6 g/dL (13.0-18.0); Mean Corp Hgb Conc. 30.1 g/dL (33.0-37.0); Mean Corpuscular Volume 92.5 fL (80.0-94.0); Platelet Count 160 10^3/uL (130-400); Red Cell Dist. Width 15.5 % (11.5-14.5)
[2025-06-09 11:26] LABS: APTT 79.3 Sec (23.4-35.0)
--- NOTE | 2025-06-09 12:03 | W.PN.NEPH.PH ---
Today's Communication / Plan
-
Dialysis tomorrow
80 mg IV Lasix provide
Assessment/Plan
-
IMP:
Presentation with shortness of breath and increasing edema
anemia of chronic disease
CKD stage 5 now with RAJ (10)
chronic metabolic acidosis
hyperphosphatemia
IDDM 1 with nephropathy
HLD,
BPH
chronic prostatitis
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
JOB FORWARDER shunt,
AV fistula
Plan:
- AV fistula still too immature at 2 weeks to be utilized henceforth IR placed tunneled catheter which is unfortunately femoral due to bilateral IJ occlusion
-Dialysis will be provided tomorrow for third treatment
-LEN support will be provided for anemia of chronic kidney disease
-Patient hemodynamically stable on current antihypertensives
-Patient still with noted volume overload for which I will provide 80 mg of IV Lasix today
-
-
Date of Service: June 09, 2025
CC / HPI / ROS
-
Chief Complaint:
ESRD
History of Present Illness:
New ESRD patient
Hemodynamically more stable on anti htns
Review of Systems:
Still short of breath
Weights down 4kg since admission
Labs
-
Labs:
WBC 7.0 10^3/uL (4.8-10.8) 06/09/25 11:08
RBC 3.45 10^6/uL (4.70-6.10) L 06/09/25 11:08
Hgb 9.6 g/dL (13.0-18.0) L 06/09/25 11:08
Hct 31.9 % (39.0-52.0) L 06/09/25 11:08
Plt Count 160 10^3/uL (130-400) 06/09/25 11:08
eGFR 5.01 06/07/25 13:16
Phosphorus 5.8 mg/dl (2.5-4.5) H 06/07/25 13:16
Cmh-L-Wmuuzqxbaht Pept 48449 pg/ml 06/06/25 16:48
Physical Exam
-
Vital Signs:
Vital Signs
Temp Pulse Resp BP Pulse Ox
98.2 F 67 18 148/58 98
06/09/25 07:00 06/09/25 09:04 06/09/25 07:00 06/09/25 09:04 06/09/25 07:00
Cardiovascular:: Regular rate and rhythm
Respiratory:: Bilateral: Coarse
Lung Excursion:: Normal
Abdomen:: Nontender and Soft
Bowel Sounds:: Normal
Extremity Edema:: +1: Bilateral:
Herrera Catheter: No
Other Findings::
Tunneled right femoral catheter
[2025-06-09 12:07] LABS: ALT (SGPT) < 10 U/L (0-50); AST (SGOT) 15 U/L (17-59); Albumin 3.5 g/dl (3.5-5.0); Alkaline Phosphatase 103 U/L (38-126); Blood Urea Nitrogen 63 mg/dl (9-20); Calcium 8.4 mg/dl (8.4-10.2); Carbon Dioxide 23 mmol/L (22-30); Chloride 106 mmol/L (98-107); Estimated Creatinine Clearance 14 ml/min; Glucose 110 mg/dl (70-99); Potassium 4.5 mmol/L (3.5-5.1); Sodium 134 mmol/L (135-145); Total Protein 6.2 g/dl (6.3-8.2); eGFR 11.38
[2025-06-09 13:00] LABS: Glucose - Point of Care 129 mg/dl (70-99)
[2025-06-09] MEDS: LASIX 80 MG IV (13:07)
--- NOTE | 2025-06-09 13:41 | W.PN.HOSP.TC ---
Today's Communication/Plan
-
IV lasix today
HD tomorrow
wean o2 as tolerated
monitor Chest imaging
Assessment / Plan
Assessment / Plan
Physical Exam
General: Other (75y M in no acute distress.)
HEENT: Moist mucous membranes, PERRLA and Other (Pos JVD / HJR.)
Respiratory: Other (Decreased at bases with rales about 1/2 up.)
Cardiac: S1/S2 and Regular Rhythm; No Murmur
GI: Soft, Non Tender, Non Distended and Normal Bowel Sounds
Musculoskeletal: No Clubbing, No Cyanosis and Other (1-2+ pitting edema b/l LEs.)
Neuro: AO x 3
Hematologic/Lymphatic: Other (RUE AVF site intact without bleeding / discharge.)
A/P: Patient is a 75y M with PMH significant for CKD V, HTN and DM-I who presents to ED complaining of shortness of breath.
ESRD - New
Pulmonary Edema secondary to the above
Non Cardiogenic Pulmonary Edema
Acute Hypoxemic Respiratory Failure secondary to the above
- SCr = 10 compared to 6 five months ago.
- Was planning to begin HD in the next month with his physician at [place] (Dr. Derek Zuleta).
- Evidence of volume overload on exam and by CXR.
- IV Lasix x 1 dose given in the ED. Provide IV lasix today; HD tomorrow
- HD cath placement and dialysis administration starting 06/07
- Placed right femoral tunneled catheter (IJ could not be accessed due to occlusion). OK to use now, should be removed as soon as the fistula is successfully used for dialysis due to higher infection risk
- Nephrology and IR consulted.
- Follow for clinical improvement.
- Has RUE AVF - but not yet mature / ready for use.
- Supportive care / O2 supplementation as needed.
Bilateral LE DVT
Possible PE
- US done shows acute and chronic bilateral LE thromboses.
- Patient has been on Eliquis for known DVT - taking 2.5mg BID dose.
- IV heparin for now given need for catheter placement, HD, etc.
- Echo as noted above to assess for R sided pressures, etc.
- Could resume Eliquis prior to discharge - 5mg BID dosing for DVT treatment.
#Acute Hypoxic Respiratory Failure
-2/2 to noncardiogenic pulmonary edema
-resolved s/p HD
-Wean o2
#Loculated Right Pleural Effusion -
-No longer seen on CXR 06/09
-monitor wbc, respiratory status
-f/u imaging closely for possible need of thoracentesis
DM-I
- Stable. At present.
- Continue home insulin pump.
- DM VISION TEACHER consulted for insulin management / recommendations.
- HgbA1C - 6.3
Benign Hypertension
- Stable. Continue current BP medications for now with holding parameters.
- Adjust as needed as patient begins HD.
Anemia of CKD
- Stable / increased from prior baseline.
- Follow for changes in H&H.
- Monitor for any evidence of active bleeding on heparin.
-ELN
BPH
- Stable. Continue current BPH med regimen.
Code Status: DNR
Anticipated Discharge: 24 - 48 hours
Subjective/Interval History
-
Date of Service: June 09, 2025
worsening sob today
Objective Data
-
Labs:
Laboratory Results
06/09/25 06/09/25
03:36 11:08
WBC 7.0
Hgb 9.6 L
Hct 31.9 L
Plt Count 160
APTT 25.8 79.3 H
Sodium 134 L
Potassium 4.5
Chloride 106
Carbon Dioxide 23
BUN 63 H
Creatinine 5.0 H*
Glucose 110 H
Calcium 8.4
Total Bilirubin 0.5
AST 15 L
ALT < 10
Alkaline Phosphatase 103
Vital Signs:
Vital Signs
Temp Pulse Resp BP Pulse Ox
97.5 F 63 20 155/63 94
06/09/25 11:00 06/09/25 11:00 06/09/25 11:00 06/09/25 11:00 06/09/25 11:00
I&O
06/08/25 06/09/25 06/10/25
06:59 06:59 06:59
Intake Total 270 / 270 750 / 750
Output Total 1000 / 1000 1250 / 1250
Balance -730 / -730 -500 / -500
Review of Systems
-
History Source: Patient
All other systems: Reviewed and negative
Data Reviewed
-
Diagnostic Radiology: Report Reviewed by me
Ultrasound: Report Reviewed by me
Labs: Labs Reviewed by me
[2025-06-09] MEDS: FLEXBUMIN 25% FOR HEMODIALYSIS IV (14:35)
[2025-06-09 16:52] LABS: Glucose - Point of Care 107 mg/dl (70-99)
[2025-06-09 18:41] LABS: APTT 69.7 Sec (23.4-35.0)
[2025-06-09] MEDS: LIPITOR 10 MG PO (19:53)
[2025-06-09] MEDS: DESYREL 50 MG PO (19:56)
[2025-06-09] MEDS: MIRALAX 17 GRAMS PO (20:04)
[2025-06-09 21:42] LABS: Glucose - Point of Care 201 mg/dl (70-99)
[2025-06-10] VITALS (7 sets, daily range): BP systolic 128–150; BP diastolic 52–68; BMI 27.0
[2025-06-10] MEDS: HEPARIN 25000 UNITS/250 ML IV ×2 (00:21→17:10)
[2025-06-10 02:25] LABS: APTT 170.4 Sec (23.4-35.0)
[2025-06-10 08:07] LABS: Glucose - Point of Care 136 mg/dl (70-99)
--- NOTE | 2025-06-10 08:47 | PN.DE.MGMTRT ---
Insulin Management
- -
06/10/2025: Consulted for insulin pump management.
75 year old male with with breathing problem - pulmonary edema, acute on chronic renal failure with symptomatic volume overload.
PMH: Chronic DVT, Neurosarcoidosis, Chronic prostatitis, BPH, HLD and T1DM x 55 years and has been using an insulin pump for over 25 yrs.
He routinely follows up with his Formulation Scientist Dr. Hunt at [place]. A1C 6.3, Cr 10-->5--> 6.9, eGFR 7.73 today.
He is currently receiving dialysis, have attempted to see pt twice today but have not been successful.
He is currently using the Tandem T-Slim with NovoLog insulin and has a [employer] G6 glucose monitor.
His glucose is stable and in range. HS glucose was 201, FBG 136 this AM. Pump settings are as follows:
Basal ICR ICF Target
12am 0.1 1:20 1:90 110
3am 0.4 1:20 1:90 110
6am 0.4 1:20 1:90 110
10am 0.6 1:20 1:90 110
7pm 0.6 1:20 1:90 110
24 hour basal total 11.5 units
Active insulin 3 hours
Will make no changes to current pump settings.
Discussed with Nurse. Will cont to follow.
Diabetes History
- -
Type of Diabetes: 1
Pre-Admission Diabetes Regimen
06/09/25
11:08
Creatinine 5.0 H*
Lab Results
Hemoglobin A1c 6.3 % (4.0-5.9) H 06/07/25 13:16
Insulin Pump Settings
IP Diabetes Regimen
06/09/25 06/09/25 06/09/25
11:08 12:58 16:50
Glucose 110 H
POC Glucose 129 H 107 H
06/09/25 06/10/25
21:42 08:05
Glucose
POC Glucose 201 H 136 H
Meal type: Breakfast
Amount consumed: 100%
Patient Education
[2025-06-10] MEDS: FLOMAX 0.4 MG PO ×2 (08:52→20:46)
[2025-06-10] MEDS: NORVASC 5 MG PO (08:52)
[2025-06-10] MEDS: PHOSLO 1334 MG PO ×3 (08:52→16:39)
[2025-06-10] MEDS: LOPRESSOR 50 MG PO ×2 (08:52→20:49)
[2025-06-10] MEDS: PROSCAR 5 MG PO (08:52)
[2025-06-10 09:42] LABS: Hematocrit 29.1 % (39.0-52.0); Hemoglobin 8.6 g/dL (13.0-18.0); Mean Corp Hgb Conc. 29.6 g/dL (33.0-37.0); Mean Corpuscular Volume 92.1 fL (80.0-94.0); Platelet Count 134 10^3/uL (130-400); Red Cell Dist. Width 15.3 % (11.5-14.5)
[2025-06-10 09:48] LABS: APTT 108.1 Sec (23.4-35.0)
[2025-06-10 10:52] LABS: ALT (SGPT) < 10 U/L (0-50); AST (SGOT) 14 U/L (17-59); Albumin 3.2 g/dl (3.5-5.0); Alkaline Phosphatase 107 U/L (38-126); Blood Urea Nitrogen 80 mg/dl (9-20); Calcium 9.0 mg/dl (8.4-10.2); Carbon Dioxide 26 mmol/L (22-30); Chloride 104 mmol/L (98-107); Estimated Creatinine Clearance 10 ml/min; Glucose 139 mg/dl (70-99); Potassium 4.8 mmol/L (3.5-5.1); Sodium 135 mmol/L (135-145); Total Protein 6.0 g/dl (6.3-8.2); eGFR 7.73
--- NOTE | 2025-06-10 11:14 | W.PN.HOSP.TC ---
Today's Communication/Plan
-
see plan
Assessment / Plan
Assessment / Plan
75y M with PMH significant for CKDV, HTN and DM-I who presented to ED complaining of shortness of breath.
Gen: NAD, AAOx3, appear chronically ill.
Eyes: EOMI, PERRLA, no scleral icterus.
Neck: supple.
CV: RRR, +S1/S2, no m/r/g.
Resp: CTAB anteriorly, no rales, wheezes, or rhonchi.
Abd: +BS, soft, NT, ND
Skin: No rashes.
Neuro: CN 2-12 intact, non-focal.
Psych: Normal mood and affect.
CXR: Cardiomegaly with mild pulmonary edema and new small pleural effusions, more pronounced on the right. There are bibasilar airspace opacities which are favored to represent atelectasis.
B/L LE U/S: Findings consistent chronic thrombus in the popliteal vein bilaterally. Occlusive thrombus in a duplicated posterior superficial femoral vein bilaterally. New from previous exam.
Echo:
1. Mild concentric left ventricular hypertrophy with preserved systolic function, ejection fraction 55-60%. Stage II diastolic dysfunction, elevated LV filling pressure.
2. Mitral annular calcification, thickened mitral leaflets, mild mitral regurgitation and dilated left atrium.
3. Mild aortic stenosis with trace aortic regurgitation. Peak/mean aortic valve gradient 25/14 mmHg, aortic valve area 1.5 cm2.
4. Normal right heart, pulmonary artery systolic pressure is 36 mmHg.
5. There are no prior studies available for comparison.
ESRD (new):
-Non Cardiogenic Pulmonary Edema Acute Hypoxemic Respiratory Failure due to ESRD, currently on 5L NC O2
-c/s pulm
-as per discussion with renal goal would be to avoid IV contrast to preserve whatever remaining renal function is left but if CTA chest is needed OK to order
-volume overloaded on admission, s/p IV lasix
-RUE AVF too immature to be used for HD at this time
-Placed R femoral tunneled catheter (IJ could not be accessed due to occlusion). OK to use now, should be removed as soon as the fistula is successfully used for dialysis due to higher infection risk.
-HD started 06/07
-renal following
Bilateral LE DVTs:
-and possible PE
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
-cont heparin gtt for now
-will need to be reloaded with Eliquis once restarted
-c/s heme
Loculated Right Pleural Effusion:
-No longer seen on CXR 06/09
-no leukocytosis or fever
Other problems:
DMI: cont insulin pump, a1c 6.3%, diabetes BRAIN WAVE TECHNICIAN following
Essential HTN: cont Norvasc/BB
Anemia of CKD: trend Hb
BPH: cont Proscar
Pt's daughter updated at length at beside
DNR/heparin
Total time spent on today's encounter was 50 minutes which included time spent in counseling the patient/family regarding diagnosis and treatment plan as listed above, goals of care, and symptom management. Case was discussed with nursing staff,
specialists, and care coordinators/case management. All labs and imaging personally reviewed by me. Remainder the time spent in detailed review of previous records, lab data, imaging, and other medical provider documentation.
Anticipated Discharge: 24 - 48 hours
Subjective/Interval History
-
Date of Service: June 10, 2025
Pt still with intermittent SOB.
Objective Data
-
Labs:
Laboratory Results
06/10/25 06/10/25 06/10/25
01:33 09:22 15:30
WBC 5.9
Hgb 8.6 L
Hct 29.1 L
Plt Count 134
APTT 170.4 H* 108.1 H Pending
Sodium 135
Potassium 4.8
Chloride 104
Carbon Dioxide 26
BUN 80 H
Creatinine 6.9 H*
Glucose 139 H
Calcium 9.0
Total Bilirubin 0.5
AST 14 L
ALT < 10
Alkaline Phosphatase 107
Vital Signs:
Vital Signs
Temp Pulse Resp BP Pulse Ox
98.1 F 65 20 128/52 92
06/10/25 07:41 06/10/25 07:41 06/10/25 07:41 06/10/25 07:41 06/10/25 07:41
I&O
06/09/25 06/10/25 06/11/25
06:59 06:59 06:59
Intake Total 750 / 750 240 / 240
Output Total 1250 / 1250 1175 / 1175
Balance -500 / -500 -935 / -935
--- NOTE | 2025-06-10 12:00 | CM ---
Chart reviewed. HD today. Patient still with intermittent SOB, currently on 5L O2.
CM called and spoke w/ Yesenia/[facility] admissions, confirmed receipt of all required clinicals. Yesenia stated that they are still waiting on escalation of spouse's preferred evening chair time on MWF. However, at this time, there is a MWF at
5:35 am and TErna, Sat at 12 pm and 10:50 am available.
Yesenia requesting HD flow sheets, CM faxed to [facility]
CM spoke w/ patient's spouse to update. Shared available chair times. Per spouse, she spoke w/ Pati/building rental manager who offered MWF at 3:45 pm chair time and have accepted that.
CM spoke w/ Angi/[facility] liaison to update. Per Angi, will send a message to Yesenia confirming offered 3:45 chair time MWF for patient has been accepted by spouse.
Plan: Home w/ OP HD ([address], [place])
MWF 3:45 pm
[2025-06-10 12:03] LABS: Glucose - Point of Care 130 mg/dl (70-99)
--- NOTE | 2025-06-10 13:00 | CON.PUL ---
Consultation
Consultation Request
Date/Time Consultation Requested: 06/10/25
Date/Time Consultation Performed: 06/10/25
Performing Provider: Estela
Reason for Consultation: SOB
Medical History
-
History of Present Illness:
75-year-old male with history of CKD stage V on HD, hypertension, diabetes, neurosarcoidosis presenting to ER with complaints of shortness of breath. He had gradually increasing pulmonary edema on presentation with abdominal extension, had been
planning for HD with recent placement of right upper extremity AV fistula about 2 weeks ago. He has a history of acute on chronic bilateral lower extremity DVTs on Eliquis. He is initiated on HD during this admission, initial peak weight 92 kg now
87 kg (-5kg) since admission. He notes shortness of breath is ongoing despite diuresis. Chest x-ray completed on 06/09/2025 with bibasilar opacities over bilateral edema.
Past Medical History
Past Medical History: Other (see list below)
Social History
Tobacco: Non-smoker
Alcohol: None
Drug: None
Allergies / Home Medications
Allergies
Allergy/AdvReac Type Severity Reaction Status Date / Time
No Known Allergies Allergy Verified 06/06/25 16:03
Home Medications
�Medication �Instructions �Recorded �Confirmed �Last Taken �Type
calcium acetate 667 mg tablet 1,334 mg PO TID Kidney Disease 12/12/22 06/06/25 06/06/25 History
ezetimibe 10 mg tablet 10 mg PO DAILY High Cholesterol 12/12/22 06/06/25 06/06/25 History
sodium bicarbonate 650 mg tablet 1,950 mg PO BID Electrolyte 12/12/22 06/06/25 06/06/25 History
Repletion
tamsulosin 0.4 mg capsule 0.4 mg PO BID Urinary Issue 12/12/22 06/06/25 06/06/25 History
vitamin B complex and vitamin C 1 cap PO DAILY Supplement 12/12/22 06/06/25 06/06/25 History
no.20-folic acid 1 mg capsule
atorvastatin 10 mg tablet 10 mg PO HS #30 tabs 12/15/22 06/06/25 06/05/25 Rx
finasteride 5 mg tablet 5 mg PO DAILY #30 tabs 12/15/22 06/06/25 06/06/25 Rx
Patient Own Insulin Pump 0 unit SC .VIA NOVOLOG Diabetes 07/04/24 06/06/25 06/06/25 History
ascorbic acid (vitamin C) 500 mg 500 mg PO BID Supplement 07/04/24 06/06/25 06/06/25 History
tablet (Vitamin C)
calcium polycarbophil 625 mg 625 mg PO QPM Gastrointestinal 07/04/24 06/06/25 08/22/24 History
tablet (FiberCon) Issue
cholecalciferol (vitamin D3) 25 25 mcg PO DAILY Supplement 07/04/24 06/06/25 06/06/25 History
mcg (1,000 unit) tablet (Vitamin
D3)
oxycodone 5 mg tablet 5 mg PO DAILY PRN Pain 07/04/24 06/06/25 06/06/25 History
acetaminophen 500 mg tablet 1,000 mg PO DAILYPRN PRN mild pain 08/23/24 06/06/25 08/22/24 History
amlodipine 5 mg tablet 5 mg PO DAILY Blood Pressure 06/06/25 06/06/25 06/06/25 History
apixaban 2.5 mg tablet (Eliquis) 2.5 mg PO BID Blood Clot 06/06/25 06/06/25 06/06/25 History
Prevention/Tx
diazepam 5 mg tablet 5 mg PO DAILY PRN anxiety 06/06/25 06/06/25 Unknown History
nebivolol 10 mg tablet 10 mg PO DAILY Blood Pressure 06/06/25 06/06/25 06/06/25 History
omeprazole 40 mg capsule,delayed 40 mg PO DAILY GERD 06/06/25 06/06/25 06/06/25 History
release
torsemide 20 mg tablet 40 mg PO .EVERYOTHERDAY Fluid 06/06/25 06/06/25 06/05/25 History
Retention/Swelling
trazodone 50 mg tablet 50 mg PO HS Mental Health/Anxiety 06/06/25 06/06/25 06/05/25 History
Review of Systems
-
History Source: Patient
All other systems: Negative unless noted
Vitals / Labs / Diagnostic Testing
Vital Signs
Temp Pulse Resp BP Pulse Ox
98.4 F 63 20 148/60 96
06/10/25 11:16 06/10/25 11:16 06/10/25 11:16 06/10/25 11:16 06/10/25 11:16
Lab Data
06/10/25 09:22
06/10/25 09:22
Laboratory Results
06/09/25 06/10/25 06/10/25
18:22 01:33 09:22
APTT 69.7 H 170.4 H* 108.1 H
Microbiology
06/06/25 22:36 Nose MRSA Screen - Final
No Methicillin Resistant Staphylococcus aureus isolated.
Diagnostic Testing:
Physical Exam
-
HEENT: Normocephalic, Anicteric and Moist Mucous Membranes
Cardiovascular: S1/S2 and Regular Rhythm
Respiratory: Clear and Non-Labored Respirations
GI: Soft, Non Distended and Non Tender
Neurology: Awake, Alert, Oriented and No Motor Deficits
Skin: Warm, Dry and Good Color
General: Comfortable and Other (NAD)
Assessment
-
75-year-old male with history of CKD stage V on HD, hypertension, diabetes, neurosarcoidosis presenting to ER with complaints of shortness of breath. He had gradually increasing pulmonary edema on presentation with abdominal extension, had been
planning for HD with recent placement of right upper extremity AV fistula about 2 weeks ago. He has a history of acute on chronic bilateral lower extremity DVTs on Eliquis. He is initiated on HD during this admission, initial peak weight 92 kg now
87 kg (-5kg) since admission. He notes shortness of breath is ongoing despite diuresis. Chest x-ray completed on 06/09/2025 with bibasilar opacities over bilateral edema. We are consulted for evaluation of shortness of breath.
Progressive shortness of breath
Heart failure preserved ejection fraction
CKD stage V, awaiting HD initiation, AV fistula placed 2 weeks prior to admission
Lower extremity edema
Conditions present prior to admission
Diabetes
CKD
Chronic LE DVT on Eliquis as OP
[place]- brain surgery
Scrotal cellulitis and urinary tract infection - 12/12-12/15/22
[facility]- 7 months- slow moving auto immune [id number]
Pressure ulcer of left heel, unstageable
Neurosarcoidosis
Peripheral vascular disease
Chronic prostatitis
Plan
Hypoxemia noted on arrival, but this is quickly weaning down, currently on 5 L
Will adjust O2 parameters for titration downward to off
He does not have baseline use of O2 at home
Home O2 evaluation, eventually will be needed
Prior history of lung disease is not noted-denies prior history
He denies any prior smoking, he denies any family history of lung disease
CXR/CT obtained indicating pulmonary edema, prior CT reports indicating possible scarring
He notes that his shortness of breath was only in the last 3 days, he did not have shortness of breath prior to presentation
He feels his shortness of breath is already improving with HD
I am doubtful that he has new onset lung disease
Admission weight at 92 kg, he is down -5 kg
HD continue per renal with cautious diuresis
Continue daily weights
I suspect he has more volume to be removed
Prior ECHO results are reviewed indicating stable function, he does have stage II diastolic dysfunction
proBNP on admission 14,000
Continue diuresis via HD
Weight loss measures recommended, he is overweight
He appears mostly deconditioned as well
PT OT evaluation recommended
Will need outpatient pulmonary evaluation in our office for PFTs and 6MWT for further management if shortness of breath is ongoing
Reviewed with patient
We will follow
Diagnostic Data
Chest X-Ray: 06/09/25- Cardiomegaly with mild pulmonary edema and new small pleural effusions, more pronounced on the right. There are bibasilar airspace opacities which are favored to represent atelectasis.
06/06/25- New prominence of the interstitial markings concerning for pulmonary edema versus pneumonia. Clinical and laboratory correlation recommended. New. Moderate loculated right pleural effusion. Pneumonia not excluded. New. Cardiomegaly. New
CT Scan: AP 11/01/18- Lung bases: Minor linear interstitial scarring demonstrated in the anterior and lateral right lung base, as well as the anterior left lung base.
Echo: 06/07/25-1. Mild concentric left ventricular hypertrophy with preserved systolic function, ejection fraction 55-60%. Stage II diastolic dysfunction, elevated LV filling pressure.
2. Mitral annular calcification, thickened mitral leaflets, mild mitral regurgitation and dilated left atrium.
3. Mild aortic stenosis with trace aortic regurgitation. Peak/mean aortic valve gradient 25/14 mmHg, aortic valve area 1.5 cm2.
4. Normal right heart, pulmonary artery systolic pressure is 36 mmHg.
5. There are no prior studies available for comparison.
PFT's:
Reports and relevant images were personally reviewed.
Total time spent on this consultation __55__ minutes which includes review of history, physical exam, medications, laboratory data, personal review of imaging, extensive review of outpatient records, discussion with care team and respiratory therapy.
--- NOTE | 2025-06-10 13:23 | W.PN.NEPH.HD ---
Assessment
-
Seen on HD. mild SOB still though better than on admit. VSS, access ok
He is already on heparin gtt and will require OAC for DVT. finding PE should not change OAC requirements.
Currently no suspicion that he has anything submassive or greater that may alter treatment plan.
UF tomorrow for more volume
Lasix 80mg IV today again
Progress Note - Hemodialysis
-
Date of Service: June 10, 2025
Duration: 3 hours
Potassium Bath: 2
Calcium Bath: 2.5
Opti-Dialyzer: 160
Ultrafiltration: Other (2)
Blood Flow: 350
Dialysate Flow: 600
Heparin: 0
EPO: 71409 units
[2025-06-10] MEDS: RETACRIT 10000 UNITS IV (14:06)
[2025-06-10] MEDS: HEPARIN 4000 UNITS INTRACATH (15:05)
[2025-06-10] MEDS: NOVOLOG vial 100 UNITS SC (16:37)
[2025-06-10] MEDS: LASIX 80 MG IV (16:39)
[2025-06-10 16:58] LABS: Glucose - Point of Care 162 mg/dl (70-99)
[2025-06-10 17:35] LABS: APTT 60.0 Sec (23.4-35.0)
[2025-06-10] MEDS: LIPITOR 10 MG PO (20:46)
[2025-06-10] MEDS: DESYREL 50 MG PO (20:46)
[2025-06-10 21:20] LABS: Glucose - Point of Care 336 mg/dl (70-99)
--- NOTE | 2025-06-10 21:58 | W.PN.UPDATE ---
Update Note
Progress Note Update
Patient BS 336, patient and RN confirms patient's own insulin pump is not functioning at present.
Patient requesting 4 units
confirmed patient's own insulin pump is turned off.
placed patient's pump on hold
will order low resistance insulin
Diabetic management consult in place
[2025-06-10 22:41] LABS: Glucose - Point of Care 295 mg/dl (70-99)
--- NOTE | 2025-06-10 22:44 | CON.ONC ---
Addendum entered and electronically signed by Erika Davila MD 06/10/25 23:41:
Correction: does not have history of renal transplant. Sounds like the immunosuppressives were for neurosarcoid.
Original Note:
Consultation
-
Date Consultation Requested: 06/10/25
Date Consultation Performed: 06/10/25
Requesting Provider: Avery Storm MD
Performing Provider: Erika Gonzalez MD
Reason for Consultation: DVT occurring on Eliquis 2.5 BID
Impression
Impression
ESRD now on HD
Volume overload due to ESRD
B/l DVT, acute and chronic components
CKD-V s/p failed kidney transplant, now off immunosuppressives
Plan
Plan
Antiphospholipid ab panel with AM labs.
Currently on heparin gtt
When ready for d/c, suggest 7 days Eliquis 10 BID, then 5 BID indefinitely.
Thank you for consult, will follow along with you.
Patient History
History of Present Illness
Patient is a 75y M with PMH significant for CKD-V s/p failed renal transplant, hypertension, DM-I and possible (per ) neurosarcoidosis who presented to ED complaining of SOB. Patient is followed by Nephrology (Dr. Derek Zuleta) at [place].
He has known CKD V and is preparing for HD with RUE AVF placed about 2 weeks ago. He has appreciated gradually increasing LE edema and abdominal distention x weeks / months. Found to be volume overloaded. Started on HD this admission due to
significant decline in his renal function from prior baseline. He is noted to have acute and chronic bilateral LE DVTs on Eliquis (2.5mg dose). Pt has been off all anti-rejection medicines for about 3 months. c/o malaise currently, just finished
dialysis.
Past-Medical/Surgical History
Past Medical History
CKD V / ESRD
Hypertension
DM-I
Neurosarcoidosis
BPH
DVT
Anemia of CKD
Past Surgical History
RUE AVF
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
Social History
Tobacco: Non-smoker
Alcohol: None
Drug: None
Family History
Family History: Not pertinent
Patient Medication
�Medication �Instructions �Recorded �Confirmed �Last Taken �Type
calcium acetate 667 mg tablet 1,334 mg PO TID Kidney Disease 12/12/22 06/06/25 06/06/25 History
ezetimibe 10 mg tablet 10 mg PO DAILY High Cholesterol 12/12/22 06/06/25 06/06/25 History
sodium bicarbonate 650 mg tablet 1,950 mg PO BID Electrolyte 12/12/22 06/06/25 06/06/25 History
Repletion
tamsulosin 0.4 mg capsule 0.4 mg PO BID Urinary Issue 12/12/22 06/06/25 06/06/25 History
vitamin B complex and vitamin C 1 cap PO DAILY Supplement 12/12/22 06/06/25 06/06/25 History
no.20-folic acid 1 mg capsule
atorvastatin 10 mg tablet 10 mg PO HS #30 tabs 12/15/22 06/06/25 06/05/25 Rx
finasteride 5 mg tablet 5 mg PO DAILY #30 tabs 12/15/22 06/06/25 06/06/25 Rx
Patient Own Insulin Pump 0 unit SC .VIA NOVOLOG Diabetes 07/04/24 06/06/25 06/06/25 History
ascorbic acid (vitamin C) 500 mg 500 mg PO BID Supplement 07/04/24 06/06/25 06/06/25 History
tablet (Vitamin C)
calcium polycarbophil 625 mg 625 mg PO QPM Gastrointestinal 07/04/24 06/06/25 08/22/24 History
tablet (FiberCon) Issue
cholecalciferol (vitamin D3) 25 25 mcg PO DAILY Supplement 07/04/24 06/06/25 06/06/25 History
mcg (1,000 unit) tablet (Vitamin
D3)
oxycodone 5 mg tablet 5 mg PO DAILY PRN Pain 07/04/24 06/06/25 06/06/25 History
acetaminophen 500 mg tablet 1,000 mg PO DAILYPRN PRN mild pain 08/23/24 06/06/25 08/22/24 History
amlodipine 5 mg tablet 5 mg PO DAILY Blood Pressure 06/06/25 06/06/25 06/06/25 History
apixaban 2.5 mg tablet (Eliquis) 2.5 mg PO BID Blood Clot 06/06/25 06/06/25 06/06/25 History
Prevention/Tx
diazepam 5 mg tablet 5 mg PO DAILY PRN anxiety 06/06/25 06/06/25 Unknown History
nebivolol 10 mg tablet 10 mg PO DAILY Blood Pressure 06/06/25 06/06/25 06/06/25 History
omeprazole 40 mg capsule,delayed 40 mg PO DAILY GERD 06/06/25 06/06/25 06/06/25 History
release
torsemide 20 mg tablet 40 mg PO .EVERYOTHERDAY Fluid 06/06/25 06/06/25 06/05/25 History
Retention/Swelling
trazodone 50 mg tablet 50 mg PO HS Mental Health/Anxiety 06/06/25 06/06/25 06/05/25 History
Active Medications
Generic Name Dose Route Start Last Admin
Trade Name Freq PRN Reason Stop Dose Admin
Acetaminophen 650 mg 06/06/25 20:26
Acetaminophen 325 Mg Tablet PO 07/04/25 20:25
Q4HPRN PRN
Mild Pain / Temp > 101
Amlodipine Besylate 5 mg 06/07/25 08:00 06/10/25 08:52
Amlodipine 5 Mg Tablet PO 07/05/25 07:59 5 mg
DAILY TEA Administration
Atorvastatin Calcium 10 mg 06/06/25 22:00 06/10/25 20:46
Atorvastatin (Lipitor) 10 Mg Tablet PO 07/04/25 21:59 10 mg
HS TEA Administration
Calcium Acetate 1,334 mg 06/06/25 21:00 06/10/25 16:39
Calcium Acetate 667 Mg Tablet PO 07/04/25 20:59 1,334 mg
AC TEA Administration
Dextrose 12.5 grams 06/06/25 20:26
Dextrose 50% (0.5 Grams/Ml) 50 Ml Syringe IV 07/04/25 20:25
[id number] PRN
hypoglycemia
Protocol
Finasteride 5 mg 06/07/25 08:00 06/10/25 08:52
Finasteride 5 Mg Tablet PO 07/05/25 07:59 5 mg
DAILY TEA Administration
Glucagon 1 mg 06/06/25 20:26
Glucagon 1 Mg Vial IM 07/04/25 20:25
PRN PRN
hypoglycemia
Protocol
Heparin Sodium 7,300 units 06/10/25 11:26
Heparin 80 Units/Kg Iv Rebolus IV 07/08/25 11:25
PRN PRN
PTT < OR = 64 seconds
Heparin Sodium 3,700 units 06/10/25 11:27
Heparin 40 Units/Kg Iv Rebolus IV 07/08/25 11:26
PRN PRN
PTT = 64.1 to 72.9 seconds
Heparin Sodium 0 units 06/11/25 08:00
Heparin (1000 Units/Ml) 10,000 Units/10 Ml Vial INTRACATH 06/11/25 08:01
HD-ONCE ONE
Heparin Sodium 25,000 units in 250 mls @ 0 mls/hr 06/10/25 11:30 06/10/25 17:10
Heparin 16134 Units/250 Ml IV 250 mls
PER PROTOCOL TEA Administration
Protocol
Per Protocol
Insulin Aspart 0 units 06/11/25 07:30
Insulin Aspart Low Resistance 300 Units/3 Ml Pen.Injctr SC 07/09/25 07:29
AC TEA
Protocol
Mannitol 12.5 grams 06/10/25 08:00
Mannitol 25% (12.5 Grams/50 Ml) Vial IV 06/10/25 23:59
HD-Q1HPRN PRN
SBP < 90 mmHg
Metoprolol Tartrate 50 mg 06/07/25 08:00 06/10/25 20:49
Metoprolol 50 Mg Regular Release Tablet PO 07/05/25 07:59 50 mg
BID TEA Administration
Patient's Own 0 unit 06/06/25 21:00
Novolog (Aspart) SC 07/04/25 20:59
Pump - Prn PRN PRN
On Hold: 06/10/25 22:10 BLOOD GLUCOSE
Patient's Own 0 unit 06/08/25 07:30 06/10/25 16:50
Novolog (Aspart) SC 07/06/25 07:29 Not Given
Pump - Achs AC TEA
On Hold: 06/10/25 21:58
Polyethylene Glycol 17 grams 06/08/25 20:10 06/09/25 20:04
Polyethylene Glycol Powder 17 Grams Packet PO 07/06/25 20:09 17 grams
DAILYPRN PRN Administration
CONSTIPATION
Sodium Chloride 0 flush 06/06/25 21:00
Sodium Chloride 0.9% (Flush) Syringe IV 07/04/25 20:59
PER PROTOCOL TEA
Sodium Chloride 10 ml 06/10/25 08:00
Sodium Chloride (4 Meq/Ml) 30 Ml Vial *For Hemodialysis* IV 06/10/25 23:59
HD-Q1HPRN PRN
cramps
Tamsulosin HCl 0.4 mg 06/06/25 20:26 06/10/25 20:46
Tamsulosin 0.4 Mg Capsule PO 07/04/25 20:25 0.4 mg
BID TEA Administration
Trazodone HCl 50 mg 06/06/25 22:00 06/10/25 20:46
Trazodone 50 Mg Tablet PO 07/04/25 21:59 50 mg
HS TEA Administration
Physical Exam
-
Sleepy but arousable
Non-toxic appearing
Labs
Lab Results
WBC 5.9 10^3/uL (4.8-10.8) 06/10/25 09:22
RBC 3.16 10^6/uL (4.70-6.10) L 06/10/25 09:22
Hgb 8.6 g/dL (13.0-18.0) L 06/10/25 09:22
Hct 29.1 % (39.0-52.0) L 06/10/25 09:22
MCV 92.1 fL (80.0-94.0) 06/10/25 09:22
MCH 27.2 pg (27.0-31.0) 06/10/25 09:22
MCHC 29.6 g/dL (33.0-37.0) L 06/10/25 09:22
RDW 15.3 % (11.5-14.5) H 06/10/25 09:22
Plt Count 134 10^3/uL (130-400) 06/10/25 09:22
MPV 10.4 fL (7.4-10.4) 06/10/25 09:22
Abs Immat Gran (auto) 0.0 10^3/uL (0-0.05) 06/06/25 16:48
Absolute Neuts (auto) 5.5 10^3/uL (1.4-6.5) 06/06/25 16:48
Absolute Lymphs (auto) 1.2 10^3/uL (1.2-3.4) 06/06/25 16:48
Absolute Monos (auto) 0.7 10^3/uL (0.1-0.6) H 06/06/25 16:48
Absolute Eos (auto) 0.7 10^3/uL (0-0.7) 06/06/25 16:48
Absolute Basos (auto) 0.0 10^3/uL (0-0.2) 06/06/25 16:48
Immature Gran % 0.2 % (0-0.5) 06/06/25 16:48
Neutrophils % 67.9 % (42.2-75.2) 06/06/25 16:48
Lymphocytes % 14.6 % (20.5-51.1) L 06/06/25 16:48
Monocytes % 8.1 % (1.7-9.3) 06/06/25 16:48
Eosinophils % 8.7 % (0-6) H 06/06/25 16:48
Basophils % 0.5 % (0-2) 06/06/25 16:48
Creatinine 6.9 mg/dL (0.7-1.3) H* 06/10/25 09:22
Vital Signs
Vital Signs
Temp Pulse Resp BP Pulse Ox
98.5 F 67 16 140/57 95
06/10/25 19:00 06/10/25 20:49 06/10/25 19:00 06/10/25 20:49 06/10/25 19:00
[2025-06-10] MEDS: NOVOLOG FLEXPEN 4 UNITS SC (22:47)
[2025-06-10 23:20] LABS: APTT 70.0 Sec (23.4-35.0)
[2025-06-10] MEDS: HEPARIN 3700 UNITS IV (23:52)
[2025-06-11 00:33] LABS: Glucose - Point of Care 251 mg/dl (70-99)
--- NOTE | 2025-06-11 01:27 | VATNOTE ---
CALLED TO ASSESS R FEM HDC. DRSG GROSSLY BLOODY AND ACTIVE OOZING NOTED FROM INSERTION SITE. RD PER PROTOCOL W/O BIOPATCH AND QUICK CLOT AND MODIFIED PRESSURE DRSG APPLIED. PT REMAINS ON A HEPARIN DRIP. PCN TO MONITOR. VAT TO FOLLOW. PT SCHEDULED
FOR HD AT 0700 TODAY.
[2025-06-11 03:00] VITALS: BP 142/51
[2025-06-11] MEDS: HEPARIN 25000 UNITS/250 ML IV (05:34)
--- NOTE | 2025-06-11 05:41 | VATNOTE ---
CHECKED R FEM HDC DRSG AGAIN. BLOODY AGAIN BUT BLEEDING CONTAINED IN DRSG.WILL LEAVE INTACT NOW PT SCHEDULED FOR HD AT 0700. PCN AWARE.
[2025-06-11 06:00] VITALS: BMI 26.0
[2025-06-11 06:17] LABS: Hematocrit 31.0 % (39.0-52.0); Hemoglobin 9.4 g/dL (13.0-18.0); Mean Corp Hgb Conc. 30.3 g/dL (33.0-37.0); Mean Corpuscular Volume 92.8 fL (80.0-94.0); Platelet Count 134 10^3/uL (130-400); Red Cell Dist. Width 15.1 % (11.5-14.5)
[2025-06-11 06:39] LABS: APTT > 200 Sec (23.4-35.0)
--- NOTE | 2025-06-11 06:45 | PTCARENOTE ---
Pt bed alarm rand and staff responded immediately to find the pt attempting to get oob. A large amt of blood was noted on the sheets and there was blood oozing from the HD cath site. Pt was convinced to get back in bed and pressure was applied to
the site. BEDSPREAD INSPECTOR notified verbally. IV team called to change dsg. Throughout the remainder of the shift the dsg was obseered. The drainage slowed but was still present. Will continue to monitor.
[2025-06-11 07:00] VITALS: BP 154/71
[2025-06-11 07:51] LABS: ALT (SGPT) < 10 U/L (0-50); AST (SGOT) 16 U/L (17-59); Albumin 3.3 g/dl (3.5-5.0); Alkaline Phosphatase 110 U/L (38-126); Blood Urea Nitrogen 54 mg/dl (9-20); Calcium 8.9 mg/dl (8.4-10.2); Carbon Dioxide 26 mmol/L (22-30); Chloride 100 mmol/L (98-107); Estimated Creatinine Clearance 14 ml/min; Glucose 184 mg/dl (70-99); Potassium 4.5 mmol/L (3.5-5.1); Sodium 132 mmol/L (135-145); Total Protein 6.1 g/dl (6.3-8.2); eGFR 11.38
--- NOTE | 2025-06-11 08:03 | PN.DE.MGMTRT ---
Insulin Management
- -
06/11/2025: Consulted for insulin pump management.
75 year old male with with breathing problem - pulmonary edema, acute on chronic renal failure with symptomatic volume overload.
PMH: Chronic DVT, Neurosarcoidosis, Chronic prostatitis, BPH, HLD and T1DM x 55 years and has been using an insulin pump for over 25 yrs.
He routinely follows up with his Splitter Operator Dr. Hunt at [place]. A1C 6.3, Cr 10-->5--> 6.9, eGFR 7.73 today.
He is currently receiving dialysis.
He is currently using the Tandem T-Slim with NovoLog insulin and has a [employer] G6 glucose monitor.
His glucose last evening was up to 295, pump site was out; HS glucose was 251. Patient very drowsy but states pump has been restarted. Will stop Corrective insulin. Patient to bolus for meals and correction himself. FBG 116 this AM. Pump settings
are as follows:
Basal ICR ICF Target
12am 0.1 1:20 1:90 110
3am 0.4 1:20 1:90 110
6am 0.4 1:20 1:90 110
10am 0.6 1:20 1:90 110
7pm 0.6 1:20 1:90 110
24 hour basal total 11.5 units
Active insulin 3 hours
Will make no changes to current pump settings.
Discussed with Nurse. Will cont to follow.
Diabetes History
- -
Type of Diabetes: 1
Pre-Admission Diabetes Regimen
06/10/25 06/11/25
09:22 05:51
Creatinine 6.9 H* 5.0 H*
Lab Results
Hemoglobin A1c 6.3 % (4.0-5.9) H 06/07/25 13:16
Insulin Pump Settings
IP Diabetes Regimen
06/10/25 06/10/25 06/10/25
08:05 09:22 12:02
Glucose 139 H
POC Glucose 136 H 130 H
06/10/25 06/10/25 06/10/25
16:56 21:16 22:39
Glucose
POC Glucose 162 H 336 H 295 H
06/11/25 06/11/25
00:30 05:51
Glucose 184 H
POC Glucose 251 H
Meal type: Lunch
Meal type: Breakfast
Amount consumed: 100%
Amount consumed: 90%
Patient Education
[2025-06-11 08:15] LABS: Glucose - Point of Care 116 mg/dl (70-99)
[2025-06-11] MEDS: LOPRESSOR PO (09:32)
[2025-06-11] MEDS: PHOSLO PO (09:32)
[2025-06-11] MEDS: NORVASC PO (09:33)
[2025-06-11] MEDS: PROSCAR 5 MG PO (09:35)
[2025-06-11] MEDS: FLOMAX 0.4 MG PO (09:35)
--- NOTE | 2025-06-11 09:44 | W.PN.PUL3 ---
Addendum entered and electronically signed by Jessica Palmer, DO 06/11/25 14:04:
We will sign off at this time, pls call with questions
Original Note:
Today's Communication / Plan
-
Doing well, stable on RA
No complaints of SOB
Can follow up as OP in our office if needed
Discharge planning otherwise per team
Assessment
-
75-year-old male with history of CKD stage V on HD, hypertension, diabetes, neurosarcoidosis presenting to ER with complaints of shortness of breath. He had gradually increasing pulmonary edema on presentation with abdominal extension, had been
planning for HD with recent placement of right upper extremity AV fistula about 2 weeks ago. He has a history of acute on chronic bilateral lower extremity DVTs on Eliquis. He is initiated on HD during this admission, initial peak weight 92 kg now
87 kg (-5kg) since admission. He notes shortness of breath is ongoing despite diuresis. Chest x-ray completed on 06/09/2025 with bibasilar opacities over bilateral edema. We are consulted for evaluation of shortness of breath.
Progressive shortness of breath
Heart failure preserved ejection fraction
CKD stage V, awaiting HD initiation, AV fistula placed 2 weeks prior to admission
Lower extremity edema
Conditions present prior to admission
Diabetes
CKD
Chronic LE DVT on Eliquis as OP
[place]- brain surgery
Scrotal cellulitis and urinary tract infection - 12/12-12/15/22
[facility]- 7 months- slow moving auto immune [id number]
Pressure ulcer of left heel, unstageable
Neurosarcoidosis
Peripheral vascular disease
Chronic prostatitis
Plan
Hypoxemia noted on arrival, but this is quickly weaning down, on 5 L--now weaned to RA
He does not have baseline use of O2 at home
Home O2 evaluation
Prior history of lung disease is not noted-denies prior history
He denies any prior smoking, he denies any family history of lung disease
CXR/CT obtained indicating pulmonary edema, prior CT reports indicating possible scarring
He notes that his shortness of breath was only in the last 3 days, he did not have shortness of breath prior to presentation
He feels his shortness of breath is already improving with HD
I am doubtful that he has new onset lung disease
Admission weight at 92 kg, he is down -5 kg
HD continue per renal with cautious diuresis
Continue daily weights
I suspect he has more volume to be removed
Prior ECHO results are reviewed indicating stable function, he does have stage II diastolic dysfunction
proBNP on admission 14,000
Continue diuresis via HD
Weight loss measures recommended, he is overweight
He appears mostly deconditioned as well
PT OT evaluation recommended
Will need outpatient pulmonary evaluation in our office for PFTs and 6MWT for further management if shortness of breath is ongoing
Reviewed with patient
I will place contact in discharge if needed
Discharge planning per team
Diagnostic Data
Chest X-Ray: 06/09/25- Cardiomegaly with mild pulmonary edema and new small pleural effusions, more pronounced on the right. There are bibasilar airspace opacities which are favored to represent atelectasis.
06/06/25- New prominence of the interstitial markings concerning for pulmonary edema versus pneumonia. Clinical and laboratory correlation recommended. New. Moderate loculated right pleural effusion. Pneumonia not excluded. New. Cardiomegaly. New
CT Scan: AP 11/01/18- Lung bases: Minor linear interstitial scarring demonstrated in the anterior and lateral right lung base, as well as the anterior left lung base.
Echo: 06/07/25-1. Mild concentric left ventricular hypertrophy with preserved systolic function, ejection fraction 55-60%. Stage II diastolic dysfunction, elevated LV filling pressure.
2. Mitral annular calcification, thickened mitral leaflets, mild mitral regurgitation and dilated left atrium.
3. Mild aortic stenosis with trace aortic regurgitation. Peak/mean aortic valve gradient 25/14 mmHg, aortic valve area 1.5 cm2.
4. Normal right heart, pulmonary artery systolic pressure is 36 mmHg.
5. There are no prior studies available for comparison.
PFT's:
Reports and relevant images were personally reviewed.
Total time spent on this consultation __40__ minutes which includes review of history, physical exam, medications, laboratory data, personal review of imaging, extensive review of outpatient records, discussion with care team and respiratory therapy.
Subjective Data
-
Date of Service:
Date of Service: June 11, 2025
Chief Complaint: Pulmonary Follow Up
Subjective:
Doing well, sitting in chair, stable on RA
Feels great
Objective Data
Data Reviewed
Vital Signs / I&O / Oxygen:
Vital Signs
Temp Pulse Resp BP Pulse Ox
98.2 F 60 18 154/71 97
06/11/25 07:00 06/11/25 07:00 06/11/25 07:00 06/11/25 07:00 06/11/25 07:00
Intake and Output
06/10/25 06/11/25 06/12/25
06:59 06:59 06:59
Intake Total 240 / 240 700 / 700
Output Total 1175 / 1175 1800 / 1800
Balance -935 / -935 -1100 / -1100
SaO2 97
Nasal Cannula flow liters per 5
minute
Labs/Micro/Reports
Lab Data
06/11/25 05:51
06/11/25 05:51
Laboratory Results
06/10/25 06/10/25 06/10/25
09:22 17:17 23:03
APTT 108.1 H 60.0 H 70.0 H
06/11/25
05:51
APTT > 200 H*
Microbiology
06/06/25 22:36 Nose MRSA Screen - Final
No Methicillin Resistant Staphylococcus aureus isolated.
--- NOTE | 2025-06-11 10:21 | W.PN.NEPH.HD ---
Assessment
-
Pt seen on HD. no complaints. VSS, access ok
Progress Note - Hemodialysis
-
Date of Service: June 11, 2025
Duration: 2 hours
Opti-Dialyzer: 160
Ultrafiltration: Other (3kg)
Blood Flow: 250
Heparin: 0
EPO: 0
--- NOTE | 2025-06-11 10:33 | W.PN.HOSP.TC ---
Addendum entered and electronically signed by James Storm MD 06/11/25 14:31:
For clarification:
-RUE AVF too immature to be used for HD at this time
-during this hospitalization a R femoral tunneled catheter (IJ could not be accessed due to occlusion). OK to use now, should be removed as soon as the fistula is successfully used for dialysis due to higher infection risk.
-on the day of discharge myself and Dr. Hernandez of nephrology have cleared the pt for discharge with his femoral line in place as there are no other options at this time.
Original Note:
Today's Communication/Plan
-
d/c
Assessment / Plan
Assessment / Plan
75y M with PMH significant for CKDV, HTN and DM-I who presented to ED complaining of shortness of breath.
Gen: NAD, AAOx3, appear chronically ill.
Eyes: EOMI, PERRLA, no scleral icterus.
Neck: supple.
CV: remains RRR, +S1/S2, no m/r/g.
Resp: CTAB, no rales, wheezes, or rhonchi.
Abd: remains +BS, soft, NT, ND
Skin: No rashes.
Neuro: CN 2-12 intact, non-focal.
Psych: Normal mood and affect.
CXR: Cardiomegaly with mild pulmonary edema and new small pleural effusions, more pronounced on the right. There are bibasilar airspace opacities which are favored to represent atelectasis.
B/L LE U/S: Findings consistent chronic thrombus in the popliteal vein bilaterally. Occlusive thrombus in a duplicated posterior superficial femoral vein bilaterally. New from previous exam.
Echo 06/07:
1. Mild concentric left ventricular hypertrophy with preserved systolic function, ejection fraction 55-60%. Stage II diastolic dysfunction, elevated LV filling pressure.
2. Mitral annular calcification, thickened mitral leaflets, mild mitral regurgitation and dilated left atrium.
3. Mild aortic stenosis with trace aortic regurgitation. Peak/mean aortic valve gradient 25/14 mmHg, aortic valve area 1.5 cm2.
4. Normal right heart, pulmonary artery systolic pressure is 36 mmHg.
5. There are no prior studies available for comparison.
ESRD (new):
-with Non-Cardiogenic Pulmonary Edema
-with acute Hypoxemic Respiratory Failure due to ESRD, currently on 5L NC O2
-pulm following, Dr. Estela grande's pulm disease
-volume overloaded on admission, s/p IV lasix
-RUE AVF too immature to be used for HD at this time
-Placed R femoral tunneled catheter (IJ could not be accessed due to occlusion). OK to use now, should be removed as soon as the fistula is successfully used for dialysis due to higher infection risk.
-HD started 06/07
-renal following and has cleared the pt for discharge
Bilateral LE DVTs:
-and possible PE
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
-heme saw in c/s
-stop heparin gtt, start Eliquis 10mg BID x 7 days then 5mg BID thereafter
Loculated Right Pleural Effusion:
-No longer seen on CXR 06/09
-no leukocytosis or fever
Other problems:
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
Essential HTN: cont Norvasc/BB
Anemia of CKD: trend Hb
BPH: cont Proscar
Pt's updated over the phone.
DNR/heparin
Total time spent on d/c = 40 min. This included today's physical exam, progress note, review of laboratory and diagnostic data, preparation of discharge documents and prescriptions, and discussions about the pt's hospital course and discharge plan
with the patient and other medical staff coordinator involved in the patient's care.
Anticipated Discharge: Today
Subjective/Interval History
-
Date of Service: June 11, 2025
Objective Data
-
Labs:
Laboratory Results
06/10/25 06/11/25 06/11/25
23:03 05:51 15:00
WBC 7.0
Hgb 9.4 L
Hct 31.0 L
Plt Count 134
APTT 70.0 H > 200 H* Pending
Sodium 132 L
Potassium 4.5
Chloride 100
Carbon Dioxide 26
BUN 54 H
Creatinine 5.0 H*
Glucose 184 H
Calcium 8.9
Total Bilirubin 0.4
AST 16 L
ALT < 10
Alkaline Phosphatase 110
Vital Signs:
Vital Signs
Temp Pulse Resp BP Pulse Ox
98.2 F 60 18 154/71 97
06/11/25 07:00 06/11/25 07:00 06/11/25 07:00 06/11/25 07:00 06/11/25 07:00
I&O
06/10/25 06/11/25 06/12/25
06:59 06:59 06:59
Intake Total 240 / 240 700 / 700
Output Total 1175 / 1175 1800 / 1800
Balance -935 / -935 -1100 / -1100
[2025-06-11 11:00] VITALS: BP 142/63
[2025-06-11] MEDS: LASIX 80 MG IV (11:04)
[2025-06-11] MEDS: PHOSLO 1334 MG PO (11:06)
[2025-06-11] MEDS: ELIQUIS 10 MG PO (11:06)
[2025-06-11 11:30] VITALS: BP 142/63
[2025-06-11 11:32] VITALS: BP 118/60
[2025-06-11 12:06] LABS: Glucose - Point of Care 121 mg/dl (70-99)
--- NOTE | 2025-06-11 12:40 | CM ---
Addendum entered by Mickey Rodriguez 06/11/25 15:05:
CM made [facility]uelo/[facility] aware that patient has a permanent femoral tunneled line. Confirmed that is acceptable
Confirmed w/ [facility] liaison that they do not manage lines or dressing changes, however, HD center will manage line and [facility] can still service patient in the home.
Original Note:
Patient will d/c home today
Patient due to start OP HD at [facility] tomorrow. Patient has a MWF 3:45 pm chair time. Confirmed w/ Consuelo/[facility]lg[facility]
Met w/ patient and spouse bedside, agreeable to d/c. CM offered home care, spouse agreeable to PT through [facility].
[facility] referral placed. [facility] liaison to make aware of referral
IMM verbally reviewed, copy provided, copy on chart
[facility]

[address]
------> PLEASE FAX D/C INSTRUCTIONS
Plan: Home w/ [facility] and OP HD ([address]) MWF 3:45 pm
--- NOTE | 2025-06-11 13:33 | VNURNOTE ---
Home Health Liaison met with patient and spouse at bedside. patient was sleeping. Discussed with spouse [facility] nurse/therapy, visits, schedule and homebound status. Spouse is agreeable and understands that visits at home will be 2-3 x per week to
assess and teach medical management.
Spouse is aware that [facility] will contact them for start of care within a week after discharge from . Provided contact number for [facility].
PM [facility] referral in [facility].
[2025-06-11 15:00] VITALS: BP 148/69
--- NOTE | 2025-06-11 16:05 | PTCARENOTE ---
pt being discharged with HD cath in Right Groin, okd by MD Hernandez and hospitalist MD Storm. manager membership Lenora carson. dressing inspected by Bayron from VAT team upon initial dc order placement. dressing is WDI upon discharge. Pt and spouse instructed
to keep area clean and dry and to return for any issues concerning HD catheter what so ever.
[2025-06-13 01:51] LABS: Beta-2-Glycoprotein I Ab. IgG <10 SGU (<=20); Beta-2-Glycoprotein I Ab. IgM <10 SMU (<=20)
== END 2025-06-11 16:52 | disposition home health service (06) | DRG 682 ==
LOC: 4 WEST ACU 19:43
PROVIDERS: Internal Medicine; Physician Assistant Medical; Radiology Vascular & Interventional Radiology; Specialist; ADMITTING PHYSICIAN Hospitalist; ATTENDING PHYSICIAN Internal Medicine; EMERGENCY PHYSICIAN Student in an Organized Health Care Education/Training Program; FAMILY PHYSICIAN Family Medicine Sports Medicine; OTHER PHYSICIAN Internal Medicine; OTHER PHYSICIAN Internal Medicine Hematology & Oncology; OTHER PHYSICIAN Specialist
PROC: 06HY33Z Insertion of Infusion Device into Lower Vein, Percutaneous Approach (ICD-10-PCS; 2025-06-07)
PROC: 02HV33Z Insertion of Infusion Device into Superior Vena Cava, Percutaneous Approach (ICD-10-PCS; 2025-06-07)
PROC: B5151ZZ Fluoroscopy of Bilateral Jugular Veins using Low Osmolar Contrast (ICD-10-PCS; 2025-06-07)
PROC: B5181ZA Fluoroscopy of Superior Vena Cava using Low Osmolar Contrast, Guidance (ICD-10-PCS; 2025-06-07)
PROC: 5A1D70Z Performance of Urinary Filtration, Intermittent, Less than 6 Hours Per Day (ICD-10-PCS; 2025-06-08)
DX: I12.0 Hypertensive chronic kidney disease with stage 5 chronic kidney disease or end stage renal disease (principal); I26.99 Other pulmonary embolism without acute cor pulmonale; J81.0 Acute pulmonary edema; J96.01 Acute respiratory failure with hypoxia; N18.6 End stage renal disease; N17.9 Acute kidney failure, unspecified; R04.2 Hemoptysis; I82.413 Acute embolism and thrombosis of femoral vein, bilateral; I82.533 Chronic embolism and thrombosis of popliteal vein, bilateral; E87.22 Chronic metabolic acidosis; I82.290 Acute embolism and thrombosis of other thoracic veins; D86.89 Sarcoidosis of other sites; E10.40 Type 1 diabetes mellitus with diabetic neuropathy, unspecified; E10.51 Type 1 diabetes mellitus with diabetic peripheral angiopathy without gangrene; E10.649 Type 1 diabetes mellitus with hypoglycemia without coma; E10.22 Type 1 diabetes mellitus with diabetic chronic kidney disease; E78.00 Pure hypercholesterolemia, unspecified; N40.0 Benign prostatic hyperplasia without lower urinary tract symptoms; D63.1 Anemia in chronic kidney disease; E83.39 Other disorders of phosphorus metabolism; N41.1 Chronic prostatitis; I34.81 Nonrheumatic mitral (valve) annulus calcification; L89.620 Pressure ulcer of left heel, unstageable; Z66 Do not resuscitate; Z96.41 Presence of insulin pump (external) (internal); Z96.653 Presence of artificial knee joint, bilateral; Z98.2 Presence of cerebrospinal fluid drainage device; Z87.440 Personal history of urinary (tract) infections; Z79.01 Long term (current) use of anticoagulants; Z99.2 Dependence on renal dialysis; Z79.899 Other long term (current) drug therapy; Z11.52 Encounter for screening for COVID-19; Z79.4 Long term (current) use of insulin; Z80.0 Family history of malignant neoplasm of digestive organs
CPT/HCPCS: 36558; 71046; 75827; 76937; 77001; 80053; 80061; 82248; 82962; 83036; 83735; 83880; 84100; 84484; 85025; 85027; 85610; 85730; 86146; 86147; 86704; 86706; 86803; 87070; 87340; 87502; 87811; 93005; 93306; 93970; 94640; 96365; 96375; 96376; 97163; 99152; 99153; 99291; C1750; P9047; Q5106

== ENCOUNTER 2025-07-15 15:12 | Emergency (ER) | payer MEDICARE, OTHER, SELFPAY ==
[2025-07-15 15:17] VITALS: BP 111/46
[2025-07-15 18:36] VITALS: BP 108/67
--- NOTE | 2025-07-15 18:39 | ED.GENMED ---
History of Present Illness
General
Chief Complaint: Fall
Source: patient, spouse and child care provider
Exam Limitations: none
Time Seen by Provider: 07/15/25 17:24
Nursing documentation reviewed up to this point in time: agreed with
History of Present Illness
History of Present Illness:
Patient reports a trip and fall on Tuesday. He hit forehead on the floor at home. No LOC. He has a small bruise to right forehead. Initially did not want to be evaluated in ED but today decided to come to the emergency department. He denies any
headache or dizziness, vision changes. There is no nausea or vomiting. He denies any neck pain. Brought to the emergency department by caregiver for evaluation.
Past History
Past History
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
Social History
Tobacco: Non-smoker
Alcohol: None
Drug: None
Personal:
Living: with family
Employment: Retired
Review of Systems
Review of Systems
Allergies reviewed?: Yes
All Other Systems: ROS reviewed and negative except as documented in HPI and ROS
Constitutional: Reports no symptoms
EENT: Reports no symptoms
Respiratory: Reports no symptoms
Cardiac: Reports no symptoms
ABD/GI: Reports no symptoms
: Reports no symptoms
Musculoskeletal: Reports no symptoms
Skin: Reports other (Bruising right forehead)
Neurological: Reports no symptoms
Psychiatric: Reports no symptoms
Phy Exam
General Physical Exam
General Presentation: well appearing and no apparent distress
General age: appears stated age
General Skin: warm and dry
General Mental: alert
Eye Exam
Eye Exam: PERRL, EOMI and conjunctiva normal
Gastrointestinal Exam
Gastrointestinal Exam: non tender and soft
Neurological Exam
Neurological Exam: alert, oriented x3, CN II-XII intact, no motor deficits and no sensory deficits
[place] Coma Scale
Eye Opening: Spontaneous
Verbal Response: Oriented
Motor Response: Obeys Commands
GCS Total Score: 15
Musculoskeletal Exam
Musculoskeletal Exam: full ROM and neuro vasc intact
Skin Exam
Skin Exam: normal color, warm/dry and no rash
Psychiatric Exam
Psychiatric Exam: normal mood/affect
Course
Orders/Labs/Results
Orders:
Orders
07/15/25 15:22
CT Head W/o Iv Contrast Urgent
Comment:
Reason For Exam: fall +thinners
Vital Signs
Initial and Last Documented VS:
Initial Vital Signs
Temp Pulse Resp BP Pulse Ox
98 F 76 20 111/46 94
07/15/25 15:17 07/15/25 15:17 07/15/25 15:17 07/15/25 15:17 07/15/25 15:17
Last Documented Vital Signs
Temp Pulse Resp BP Pulse Ox
98 F 70 16 108/67 97
07/15/25 15:17 07/15/25 18:36 07/15/25 18:36 07/15/25 18:36 07/15/25 18:36
*Pulse Oximetry
SaO2: 97
Oxygen Mode of Delivery: Room air
Patient hypoxic: no
*Critical Care Note
Total Time (30-74mins, 75-104mins- exclusive of procedures): Not Applicable
Update Note
Update Note:
Patient to the emergency department for evaluation of head injury. Patient states he had a trip and fall on Tuesday, hit forehead on the floor. No LOC. Was a small area of bruising to his right forehead. On exam he is awake alert and oriented,
neurologically he is at his baseline. CT of head completed. No acute findings noted. Small bilateral subdural collections with density suggesting chronic subdural hematomas noted on CT. I discussed these findings with patient and his spouse.
Spouse reports she feels that this is related to surgery had approximately 3 years ago at [place]. He had a routine MRI completed in May. Patient's shared results of MRI which confirmed these chronic subdural collections. Patient will be
discharged home. He is asymptomatic. He will follow-up with his family doctor. He was given instructions on signs and symptoms to return to the emergency department and he is agreeable to this plan
ED Attending Note
-
Portions of this chart may have been created with voice recognition software.� Occasional wrong word or��sound alike� substitutions may have occurred due to the inherent limitations of voice recognition software.
Discharge Plan
Departure
Patient Disposition: Home (Routine Discharge)
Date of Disposition: 07/15/25
Time of Disposition: 18:38
Patient with high blood pressure during this ER visit?: No
Condition: Good
Covid-19: Not Applicable
Discharge Problem:
Head injury
Instructions: Head Injury in Adults (DC), Contusion (DC)
Prescriptions:
No Action
tamsulosin 0.4 mg Capsule
0.4 mg PO BID
B complex and C 20-folic acid 1 mg Capsule
1 cap PO DAILY
ezetimibe 10 mg Tablet
10 mg PO DAILY
calcium acetate 667 mg Tablet
1,334 mg PO TID
atorvastatin 10 mg Tablet
10 mg PO HS Qty: 30 0RF
finasteride 5 mg Tablet
5 mg PO DAILY Qty: 30 0RF
ascorbic acid (vitamin C) [Vitamin C] 500 mg Tablet
500 mg PO BID
oxycodone 5 mg Tablet
5 mg PO DAILY PRN (Reason: Pain)
cholecalciferol (vitamin D3) [Vitamin D3] 25 mcg (1,000 unit) Tablet
25 mcg PO DAILY
Patient Own Insulin Pump
0 unit SC .VIA [facility]
calcium polycarbophil [FiberCon] 625 mg Tablet
625 mg PO QPM
acetaminophen 500 mg Tablet
1,000 mg PO DAILYPRN PRN (Reason: mild pain)
trazodone 50 mg Tablet
50 mg PO HS
amlodipine 5 mg Tablet
5 mg PO DAILY
omeprazole 40 mg Capsule,Delayed Release(Dr/Ec)
40 mg PO DAILY
diazepam 5 mg Tablet
5 mg PO DAILY PRN (Reason: anxiety)
Eliquis 5 mg Tablet
5 mg PO BID Qty: 73 0RF
Rx Instructions:
10mg BID for 13 dose followed by 5mg BID thereafter
metoprolol tartrate 50 mg Tablet
50 mg PO BID Qty: 60 0RF
Referrals:
UNKNOWN - PT DOES,NOT KNOW [Family Provider]
Activity Restrictions/Additional Instructions:
Follow-up with your family doctor.
Interventions
Interventions:
*General Assessment Last Done: 07/15/25 15:17
*Neglect/Abuse Screening Last Done: 07/15/25 15:17
*ED COVID-19 Vaccine History Last Done: 07/15/25 17:08
*ED Influenza Vaccine History Last Done: 07/15/25 17:08
[facility] Fall Risk Assessment Tool Last Done: 07/15/25 17:08
*Risk Screen - Suicide (C-SSRS) Last Done: 07/15/25 15:17
ED-Musculoskeletal Assessment Last Done: 07/15/25 17:08
ED- Neurological Assessment Last Done: 07/15/25 17:08
ED-Skin Assessment Last Done: 07/15/25 17:08
Discharge Date and Time
Print Language: FRENCH
== END 2025-07-15 18:50 | disposition home or self-care (01) ==
LOC: EMR 15:12
PROVIDERS: EMERGENCY PHYSICIAN Emergency Medicine
DX: S09.90XA Unspecified injury of head, initial encounter (principal); S00.83XA Contusion of other part of head, initial encounter; W01.0XXA Fall on same level from slipping, tripping and stumbling without subsequent striking against object, initial encounter; Z79.01 Long term (current) use of anticoagulants; Z98.2 Presence of cerebrospinal fluid drainage device
CPT/HCPCS: 99284; 70450